=== PATIENT | female | born 1970 | race Caucasian/White ===

== ENCOUNTER → 2018-12-29 11:41 | Outpatient (CLI) | payer MEDICARE, SELFPAY ==
[2018-12-29 12:26] LABS: Hematocrit 39.1 % (37-47); Hemoglobin 13.4 g/dl (12.0-15.0); Mean Corp Hgb Conc 34.3 g/gl (32-36); Mean Corpuscular Hgb 31.5 pg (27.0-32.0); Platelet Count 177 K/mm3 (150-450); RBC Distribution Width CV 12.3 % (11.6-14.6); RBC Distribution Width SD 41.4 fl (35.1-43.9); Red Blood Count 4.25 M/mm3 (4.2-5.4)
[2018-12-29 12:27] LABS: Scan Indicated on CBC? Y/N NO
[2018-12-29 12:38] LABS: Carbamazepine (Tegretol) 5.9 ug/mL (4.0-12.0)
[2018-12-29 12:43] LABS: Hemoglobin A1c 5.2 % (4.2-6.3)
[2018-12-29 12:46] LABS: ALB/GLOB Ratio 0.9 RATIO (0.9-2.4); AST(SGOT) 18 U/L (15-37); Alanine Aminotransfer ALT/SGPT 21 U/L (13-56); Albumin, Serum 3.5 g/dL (3.2-5.0); Alkaline Phosphatase 54 U/L (45-117); Anion Gap 8 (5-15); BUN 8 mg/dL (7-18); BUN/Creat Ratio 12.5 RATIO (10-20); Calcium,Total 8.5 mg/dL (8.5-10.1); Chloride 96 mmol/L (98-107); Cholesterol 195 mg/dL (200); Creatinine, Serum 0.64 mg/dL (0.55-1.02); EST Glomerular Filtration Rate 106 mL/min (>60); Est Glom Filt Rate - Afr Amer 128 mL/min (>60); Globulin 3.7 g/dL (2.2-4.2); Glucose 80 mg/dL (74-106); High Density Lipoprotein 83 mg/dL; Potassium 4.4 mmol/L (3.5-5.1); Protein, Total 7.2 g/dL (6.4-8.2); Sodium Level 133 mmol/L (136-145); Thyroid Stim Hormone (TSH) 1.08 uIU/mL (0.358-3.74); Triglycerides 80 mg/dL; Very Low Density Lipoprotein 16 mg/dL (5-40)
== END ==
PROVIDERS: Family Provider Family Medicine; PCP Family Medicine; Referring Provider Student in an Organized Health Care Education/Training Program; Visit Provider Student in an Organized Health Care Education/Training Program
DX: Z51.81 Encounter for therapeutic drug level monitoring (principal); R73.01 Impaired fasting glucose; E78.5 Hyperlipidemia, unspecified
CPT/HCPCS: 80053; 80061; 80156; 83036; 84443; 85027

== ENCOUNTER 2019-10-11 14:20 | Inpatient (IN) | payer MEDICARE, SELFPAY ==
[2019-10-11] VITALS (15 sets, daily range): BP systolic 140–168; BP diastolic 83–110; PULSE 103–131; RESP 18–30; TEMP 36.5–37.1; O2SAT 89–100; BMI 27.9; BMI 28.0; BMI 27.8
--- NOTE | 2019-10-11 14:41 | RAD_ITS ---
STUDY: X-RAY CHEST REASON FOR EXAM: Female, 48 years old. SOB. CURRENTLY BEING TREATED FOR PNEUMONIA TECHNIQUE: Single AP portable view of the chest. COMPARISON: None. FINDINGS: The lungs are clear and expanded. There is no demonstrated pleural abnormality. Normal size heart. Normal mediastinum and julio c. Normal visualized pulmonary arteries. Normal visualized aortic arch and descending thoracic aorta. There are diffuse degenerative changes of the visualized thoracic spine. Normal visualized ribs, clavicles, and shoulders. There is no demonstrated abnormality of the visualized soft tissue structures of the upper abdomen. RAD/Chest 1 View (Portable) IMPRESSION: Degenerative changes, as described above. No demonstrated acute cardiopulmonary process. Electronically Signed: Jacquie Meraz MD at 15:04 EST Tel , Service support ,
--- NOTE | 2019-10-11 14:41 | EKG12_ITS ---
Test Reason : SOB Blood Pressure : / mmHG Vent. Rate : 116 BPM Atrial Rate : 116 BPM P-R Int : 146 ms QRS Dur : 072 ms QT Int : 314 ms P-R-T Axes : 059 034 017 degrees QTc Int : 436 ms Sinus tachycardia Nonspecific ST abnormality Abnormal ECG Confirmed by QUIQUE MOE, AJ ([id number]), photo editor DENISE ANDERSON ([id number]) on 10/14/2019 10:36:25 AM Referred By: Julian Fernández Confirmed By:DEJAN LEI MD
--- NOTE | 2019-10-11 14:44 | ED.VIS.GEN ---
History of Present Illness Chief Complaint: Shortness of Breath Informant: Patient Onset: Days Context: Gradual Onset Timing: Continuous Current Severity: Moderate Maximum Severity: Severe Narrative: The patient presents to the emergency department cough and shortness of breath. The patient states she is been treated for pneumonia recently. She states that she was on azithromycin twice. She states today, she went for follow-up. She was given an injection of steroid, but was very dyspneic. She was sent in for further evaluation. She did have fever today. She admits to productive cough and orthopnea. She denies any leg swelling. She denies any history of underlying lung disease. She states that she was borderline asthmatic when she was younger because her mother smoked in the house. She has not had chest pain. She has otherwise been in her normal state of health. Prior similar symptoms: Yes Recent Illness/Hospitalization: No Past Medical History - Allergies and Home Meds Allergies/Adverse Reactions: Allergies Penicillins [PCN] Allergy (Verified 10/11/19 14:24) Unknown Prior records reviewed: Yes Past Medical History: - - Schizoaffective disorder Smoking Status: Never smoker Review of Systems General: Reports: Fever. Denies: Chills, Sweats Eyes: Denies: Visual changes - bilaterally, Diplopia ENT: Denies: Rhinorrhea, Sore throat Cardiovascular: Denies: Chest pain, Palpitations Respiratory: Reports: Dyspnea, Cough, Sputum. Denies: Dyspnea on exertion Gastrointestinal: Denies: Abdominal pain, Nausea, Vomiting, Diarrhea, Melena, Hematochezia Genitourinary: Denies: Dysuria, Hematuria, Frequency Musculoskeletal: Denies: Back pain, Extremity Pain Skin: Denies: Rash, Wounds Neurological: Denies: Headache, Weakness, Numbness Physical Exam Vital Signs/Narrative: Vital Signs Temp Pulse Resp BP Pulse Ox 10/11/19 14:21 98.6 F 131 H 26 H 168/96 H 89 Inital Vital Signs reviewed: Yes General: Well nourished, Well developed, No Acute Distress Head: Normocephalic, Atraumatic Eyes: Perrl, EOMI ENT: Moist mucous membranes, No rhinorrhea Neck: Supple, Nontender Cardiovascular: Regular rhythm, No murmurs, Tachycardia Respiratory: No distress, Chest nontender, Wheezing, Decreased Air Movement Abdomen: Soft, Nontender, Nondistended, Normal bowel sounds Back: Nontender, Normal Inspection Extremities: Nontender, No edema Skin: Normal color, No rash Neurological: Alert, Oriented x3, Cranial nerves II-XII grossly intact, Normal Strength, Normal Sensation Psychological: Normal affect, Normal Mood Diagnostic/Tx/Re-eval Chest X-Ray - ED: 1 View, Normal, Heart, Lungs Clinical Impression(s) from Imaging Studies Chest X-Ray 10/11/19 14:41 IMPRESSION: Degenerative changes, as described above. No demonstrated acute cardiopulmonary process. Electronically Signed: Jacquie Meraz MD at 15:04 EST Tel , Service support , Chest CTA 10/11/19 14:57 IMPRESSION: No evidence of pulmonary embolism. Bilateral upper lobe groundglass opacity suspicious for atypical pneumonia. Not well seen on the chest x-ray. See image #93 coronal views. Electronically Signed: Jacquie Meraz MD at 16:20 EST Tel , Service support , Abnormal Lab Results 10/11/19 10/11/19 10/11/19 14:39 14:39 14:39 WBC 9.8 RBC 4.60 Hgb 14.6 Hct 42.1 MCV 91.5 MCH 31.7 MCHC 34.7 RDW Std Deviation 39.8 RDW Coeff of Shanika 11.9 Plt Count 246 MPV 8.5 Immature Gran % (Auto) 0.400 Neut % (Auto) 51.3 Lymph % (Auto) 19.7 [place] % (Auto) 9.8 Eos % (Auto) 18.3 H Baso % (Auto) 0.5 Absolute Neuts (auto) 5.0 Absolute Lymphs (auto) 1.92 Nucleated RBC % 0 PT 12.8 INR 1.0 APTT 28.6 Sodium 129 L Potassium 4.1 Chloride 96 L Carbon Dioxide 29.0 Anion Gap 4 L BUN 10 Creatinine 0.74 Estim Creat Clear Calc 84.57 Est GFR (MDRD) Af Amer 108 Est GFR (MDRD) Non-Af 89 BUN/Creatinine Ratio 13.5 Glucose 135 H Lactic Acid Calcium 9.2 Total Bilirubin 0.30 AST 22 ALT 20 Alkaline Phosphatase 71 Troponin I 0.450 H Total Protein 8.2 Albumin 3.8 Globulin 4.4 H Albumin/Globulin Ratio 0.9 Urine Color Urine Clarity Urine pH Ur Specific [place] Urine Protein Urine Glucose (UA) Urine Ketones Urine Occult Blood Urine Nitrite Urine Bilirubin Urine Urobilinogen Ur Leukocyte Esterase Urine RBC Urine WBC Ur Squamous Epith Cells Urine Bacteria Urine Mucus 10/11/19 10/11/19 14:39 15:39 WBC RBC Hgb Hct MCV MCH MCHC RDW Std Deviation RDW Coeff of Shanika Plt Count MPV Immature Gran % (Auto) Neut % (Auto) Lymph % (Auto) [place] % (Auto) Eos % (Auto) Baso % (Auto) Absolute Neuts (auto) Absolute Lymphs (auto) Nucleated RBC % PT INR APTT Sodium Potassium Chloride Carbon Dioxide Anion Gap BUN Creatinine Estim Creat Clear Calc Est GFR (MDRD) Af Amer Est GFR (MDRD) Non-Af BUN/Creatinine Ratio Glucose Lactic Acid 1.3 Calcium Total Bilirubin AST ALT Alkaline Phosphatase Troponin I Total Protein Albumin Globulin Albumin/Globulin Ratio Urine Color Yellow Urine Clarity Clear Urine pH 6.0 Ur Specific [place] 1.020 Urine Protein 30 H Urine Glucose (UA) Normal Urine Ketones 5 H Urine Occult Blood 50 H Urine Nitrite Negative Urine Bilirubin Negative Urine Urobilinogen Normal Ur Leukocyte Esterase Negative Urine RBC 0-5 SEEN Urine WBC 0 SEEN Ur Squamous Epith Cells 0-5 SEEN Urine Bacteria 0 SEEN Urine Mucus 0 SEEN - Rhythm Strip Rhythm Strip: Sinus Rhythm Rate: 120 Ectopy: None - EKG Initial EKG Interpretation: Sinus Rhythm, No Acute Injury Pattern Prior: Unchanged - Medical Decision Making Patient presents with cough, wheezing, and hypoxia. She was given nebulized breathing treatments. Her x-ray did not show any focal infiltrative process. EKG was sinus tachycardia without acute ischemia. Patient's lactic acid was normal. She was found to have an indeterminant troponin, which I likely feel is secondary to her global hypoxia. The patient underwent CTA which shows no evidence of thrombus. However, she does have multilobar lower pneumonia. The patient was covered with broad-spectrum antibiotics. Given her hypoxia and work of breathing, she will be admitted. Impression 1. Sepsis 2. Multilobar pneumonia 3. Hypoxia ED Disposition - Plan for ED Patient: Disposition: Acute Care Hospital [facility]
--- NOTE | 2019-10-11 14:45 | NURSING ---
NO OLD EKGS
[2019-10-11] MEDS: Ipratropium/Albuterol Sulfate 3 ML AMPUL.NEB INHALATION (14:49)
--- NOTE | 2019-10-11 14:57 | CT_ITS ---
STUDY: CTA CHEST REASON FOR EXAM: Female, 48 years old. SOB. RECENT PNEUMONIA RADIATION DOSAGE (If Supplied By Facility): CTDIvol = ( 11.18 ) mGy, DLP = ( 431.32 ) mGycm TECHNIQUE: The examination was performed with the intravenous administration of 75 ML ISOVUE 370. Post-processing of the angiographic images was performed, with multiplanar reformation and 3D reconstruction. Individualized dose optimization techniques were used for this CT. COMPARISON: October 11, 2019 CT scan chest FINDINGS: Normal enhancement of the main pulmonary artery and right and left pulmonary arteries. Normal enhancement of the bilateral peripheral pulmonary arteries. There is no demonstrated pulmonary embolism. Normal thoracic aorta and visualized great vessels. There is no demonstrated aortic dissection. Normal heart and pericardium. Normal mediastinum. Normal hilar regions. Normal visualized trachea and bronchi. The lungs are well expanded. There are groundglass opacities in the medial aspect of the right upper lobe extending to the right middle lobe. There is patchy groundglass opacity in the medial aspect of the left upper lobe. Normal pleura. Normal chest wall structures. There are degenerative changes of thoracic spine. Normal visualized upper abdomen. CT/CTA Chest W/WO Contrast IMPRESSION: No evidence of pulmonary embolism. Bilateral upper lobe groundglass opacity suspicious for atypical pneumonia. Not well seen on the chest x-ray. See image #93 coronal views. Electronically Signed: Jacquie Meraz MD at 16:20 EST Tel , Service support ,
[2019-10-11] MEDS: 0.9% Normal Saline 1,000 ML 150 ML IV ×2 (15:01→17:49)
[2019-10-11 15:04] LABS: Absolute Lymphocyte Count 1.92 X10^3/uL (0.83-4.51); Basophil# 0.05 X10^3/uL; Basophil% 0.5 % (0-1); Eosinophil# 1.79 X10^3/uL; Eosinophils% 18.3 % (0-5); Hematocrit 42.1 % (37-47); Hemoglobin 14.6 g/dL (12.0-15.0); Lymphocyte # 1.92 X10^3/ul (4.0); Lymphocyte % 19.7 % (19-41); Mean Corp Hgb Conc 34.7 g/dL (32-36); Mean Corpuscular Hgb 31.7 pg (27.0-32.0); Mean Corpuscular Volume 91.5 fL (81-99); Mean Platelet Vol. 8.5 fl (6.2-12.0); Monocyte# 0.96 X10^3/uL; Monocyte% 9.8 % (0-10); NRBC Flagged by Analyzer 0 % (0-5); Neutrophil # 5.01 X10^3/uL (2.7-7.7); Neutrophil % 51.3 % (47-70); Platelet Count 246 K/mm3 (150-450); RBC Distribution Width CV 11.9 % (11.6-14.6); RBC Distribution Width SD 39.8 fl (35.1-43.9); White Blood Count 9.8 K/mm3 (4.4-11.0)
[2019-10-11 15:08] LABS: Prothrombin Time (Protime)PT. 12.8 SECONDS (11.7-14.9)
[2019-10-11 15:10] LABS: Partial Thromboplast Time 28.6 Seconds (24.1-36.2)
[2019-10-11 15:22] LABS: ALB/GLOB Ratio 0.9 RATIO (0.9-2.4); AST(SGOT) 22 U/L (15-37); Alanine Aminotransfer ALT/SGPT 20 U/L (13-56); Albumin, Serum 3.8 g/dL (3.2-5.0); Alkaline Phosphatase 71 U/L (45-117); Anion Gap 4 (5-15); BUN 10 mg/dL (7-18); BUN/Creat Ratio 13.5 RATIO (10-20); Calcium,Total 9.2 mg/dL (8.5-10.1); Chloride 96 mmol/L (98-107); Creatinine, Serum 0.74 mg/dL (0.55-1.02); EST Glomerular Filtration Rate 89 mL/min (>60); Est Glom Filt Rate - Afr Amer 108 mL/min (>60); Estimated Creatinine Clearance 84.57 ml/min; Globulin 4.4 g/dL (2.2-4.2); Glucose 135 mg/dL (74-106); Potassium 4.1 mmol/L (3.5-5.1); Protein, Total 8.2 g/dL (6.4-8.2); Sodium Level 129 mmol/L (136-145)
[2019-10-11 15:44] LABS: Lactic Acid 1.3 mmol/L (0.4-1.9)
[2019-10-11 15:45] LABS: Bacteria 0 SEEN /hpf (None Seen); Mucous, Urine 0 SEEN /hpf (<or=2+); White Blood Cells 0 SEEN /hpf (0-5)
[2019-10-11 16:04] LABS: Color, Urine Yellow (Yellow); Glucose, Dipstick Normal (Normal); Ketone-Dipstick 5 mg/dl (Negative); Leukocyte Esterase-Dipstick Negative /ul (Negative); Nitrite-Dipstick Negative (Negative); Occult Blood-Urine 50 /ul (Negative); Protein-Dipstick 30 mg/dl (Negative); Urine Bilirubin Dipstick Negative (Negative); Urine Clarity Clear (Clear); Urine Urobilinogen Normal (Normal)
[2019-10-11 16:14] LABS: Red Blood Cells-Urine 0-5 SEEN /hpf (0-5); Squamous Epithelial Cells - UA 0-5 SEEN /hpf (5-10)
--- NOTE | 2019-10-11 16:36 | NURSING ---
109 SEPSIS, MULTILOBAR PNEUMONIA, HYPOXIA TERELETSKY
[2019-10-11] MEDS: HYDROcodone Bitartrate/Apap 5/325 Tablet PO (17:50)
[2019-10-11] MEDS: levoFLOXacin IV 750 MG/150 ML BAG 100 MG IV (17:50)
[2019-10-11] MEDS: 0.9% Saline Lock 10 ML Syringe IV (18:06)
--- NOTE | 2019-10-11 18:26 | HP.PCM_ITS ---
Problem List (1) Cough productive of yellow sputum Status: Acute (2) Wheezing Status: Acute History of Present Illness Date of Admission: 10/11/19 Chief Complaint: Cough with yellow sputum production, wheezing The patient is a 48 year old F was seen in the emergency room at [facility] with a chief complaint of cough productive of yellow sputum along with wheezing over the past 3 weeks. Patient has been on 2 Z-Rehan prescriptions back to back, today she went to an urgent care and was placed on Levaquin but she was not feeling better and felt that she should be evaluated in the emergency room here. Work-up in the emergency room here showed the patient to have normal white blood cell count, patient's chemistry panel showed a low sodium at 129, blood sugar was 135, and troponin was 0.450. Patient's urinalysis was unremarkable, chest x-ray was read out as negative, patient had a CTA of her chest which showed no evidence of pulmonary embolism but showed evidence of groundglass appearance in both upper lung cintron. Patient was admitted for bilateral community-acquired pneumonia and sepsis. She was given IV Levaquin in the emergency room, IV corticosteroids will be administered also. Past Medical History Allergies Penicillins [PCN] Allergy (Verified 10/11/19 14:24) Unknown trifluoperazine [From Stelazine] Allergy (Verified 10/11/19 17:15) Unknown Home Medications: Ambulatory Orders Medication Instructions Recorded Albuterol IH (ProAir) [Proair Hfa] 2 puff INHALATION Q6H PRN PRN 10/11/19 Benztropine Mesylate 0.5 mg PO BID 10/11/19 Benztropine Mesylate 1 mg PO QHS 10/11/19 Carbamazepine [Tegretol] 200 mg PO BID 10/11/19 Cholecalciferol (Vitamin D3) 5,000 unit PO DAILY 10/11/19 [Vitamin D3] Divalproex Sodium [Depakote] 500 mg PO TID 10/11/19 Haloperidol 5 mg PO TID 10/11/19 Meloxicam 15 mg PO DAILY@1600 10/11/19 [place]-3 Fatty Acids/Fish Oil [Fish 2,000 mg PO DAILY 10/11/19 Oil 1,000 mg Capsule] Omeprazole 20 mg PO DAILY 10/11/19 Prednisone 10 mg PO 4X/DAY 10/11/19 Sertraline HCl [Zoloft] 100 mg PO BID 10/11/19 Triamcinolone 0.1% Cream [Kenalog] 1 applicatio TOPICAL BID 10/11/19 levoFLOXacin tablet [Levaquin 750 mg PO DAILY 10/11/19 tablet] Surgical History: noncontributory Psychiatric History: - - Schizo affective disorder 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 Lives: With Family Smoking Status: Never smoker Tobacco Use: Non-smoker, Secondhand Alcohol: None Drugs: None - *Family History Maternal History Items: Heart Disease Paternal History Items: Heart Disease Review of Systems Constitutional: Denies: Anorexia, Chills, Fever, Night Sweats, Malaise, Weakness, Weight Change, Fatigue Eyes: Denies: Cataracts, Conjunctivae Inflammation, Double vision, Drainage, Redness, Vision Change HEENT: Denies: Difficulty Swallowing, Dysphasia, Ear Pain, Eye Pain, Hearing Changes, Nasal bleeding, Nasal Congestion, Post Nasal Drip Cardiovascular: Denies: Chest Pain, Claudication, Chest Pressure, Chest Tightness, Edema, Palpitations Respiratory: Reports: Cough, Sputum production, Wheezing. Denies: Hemoptysis, S hortness of Breath, Shortness of breath at rest, Shortness of breath upon exertion Gastrointestinal: Denies: Abdominal Pain, Constipation, Diarrhea, Hematemesis, Hematochezia, Nausea, Melena, Vomiting Genitourinary: Denies: Dysuria, Frequency, Hematuria, Hesitancy, Nocturia, Retention, Urgency Gynecological: Denies: Breast symptoms Musculoskeletal: Denies: Back Pain, Foot Pain, Hand Pain, Joint Pain, Joint stiffness, Joint swelling, Joint Tenderness, Leg Pain Skin: Denies: Dryness, Jaundice, Pruritis, Rash Neurological: Denies: Blurred vision, Double vision, Slurred speech, Difficulty swallowing, Focal weakness, Headaches, Numbness, Tingling Psychiatric: Denies: Anxiety, Depression, Homicidal Ideations, Suicidal Ideations Endocrine: Denies: Change in Body Habitus, Heat/ Cold Intolerance, Polydipsia, Polyuria Hematologic/ Lymphatic: Denies: Adenopathy, Anemia, Easy Bruising, Easy Bleeding, Petechiae, Purpura VTE Information - Inpt Only VTE Present on Admission: No VTE Mechan Device Prophylaxis: None VTE Pharm Prophylaxis ordered?: No Reason prophylaxis not ordered:: Treatment Not Indicated Patient Problems: Active and Suspected Problems Cough productive of yellow sputum (Acute) Wheezing (Acute) - Physical Exam Vitals/I&O's: Vital Signs Temp Pulse Resp BP Pulse Ox 97.7 F L 122 H 30 H 160/90 H 98 10/11/19 18:23 10/11/19 18:23 10/11/19 18:23 10/11/19 18:23 10/11/19 18:23 Oxygen Flow Rate (L/min) 5 Oxygen Delivery Method Nasal Cannula Weight: 76.9 kg Body Mass Index (BMI) 27.8 Intake and Output for Last 24 Hours 10/09/19 10/10/19 10/11/19 23:59 23:59 23:59 Intake Total 782.5 / 782.5 Balance 782.5 / 782.5 General: Alert, Oriented x3, Cooperative, No apparent distress, Well developed, Well nourished HEENT: Atraumatic, PERRLA, EOMI, Normocephalic Oral: Moist Mucosa Neck: Supple, No JVD, Negative Carotid Bruits, Trachea Midline, Thyroid Normal Size and Texture Lungs: No rhonchi, No rales, Diminished, Wheezes - High-pitched expiratory wheezes were noted over both lungs Cardiovascular: Regular rate, Regular Rhythm, Normal S1, Normal S2, No murmurs, PMI Normal, No rub noted, No Gallop Abdomen: Bowel Sounds Present, Soft, Non Tender, Non-Distended Extremities: No clubbing, No cyanosis, No edema, Capillary Refill Less than 3 Seconds Skin: No rashes, No breakdown Musculoskeletal: No Tenderness to Palpation of Joints or Extremities Neurological: Cranial nerves II-XII grossly intact, Neuro grossly intact, Muscle tone normal, Sensory exam intact to light touch and pain, Coordination normal Psych/Mental Status: Normal Affect, Appropriate, Alert and oriented to time, place, person, mood and affect Microbiology Past 72 Hours 10/11/19 14:48 Mucosa - Nasopharyngeal Influenza Types A,B Direct FA (ANTONY) - Final Laboratory Results 10/11/19 14:39: WBC 9.8, RBC 4.60, Hgb 14.6, Hct 42.1, MCV 91.5, MCH 31.7, MCHC 34.7, RDW Std Deviation 39.8, RDW Coeff of Shanika 11.9, Plt Count 246, MPV 8.5, Immature Gran % (Auto) 0.400, Neut % (Auto) 51.3, Lymph % (Auto) 19.7, [place] % (Auto) 9.8, Eos % (Auto) 18.3 H, Baso % (Auto) 0.5, Absolute Neuts (auto) 5.0, Absolute Lymphs (auto) 1.92, Nucleated RBC % 0 10/11/19 14:39: PT 12.8, INR 1.0, APTT 28.6 10/11/19 14:39: Sodium 129 L, Potassium 4.1, Chloride 96 L, Carbon Dioxide 29.0, Anion Gap 4 L, BUN 10, Creatinine 0.74, Estim Creat Clear Calc 84.57, Est GFR (MDRD) Af Amer 108, Est GFR (MDRD) Non-Af 89, BUN/Creatinine Ratio 13.5, Glucose 135 H, Calcium 9.2, Total Bilirubin 0.30, AST 22, ALT 20, Alkaline Phosphatase 71, Troponin I 0.450 H, Total Protein 8.2, Albumin 3.8, Globulin 4.4 H, Albumin/Globulin Ratio 0.9 10/11/19 14:39: Lactic Acid 1.3 10/11/19 15:39: Urine Color Yellow, Urine Clarity Clear, Urine pH 6.0, Ur Specific [place] 1.020, Urine Protein 30 H, Urine Glucose (UA) Normal, Urine Ketones 5 H, Urine Occult Blood 50 H, Urine Nitrite Negative, Urine Bilirubin Negative, Urine Urobilinogen Normal, Ur Leukocyte Esterase Negative, Urine RBC 0-5 SEEN, Urine WBC 0 SEEN, Ur Squamous Epith Cells 0-5 SEEN, Urine Bacteria 0 SEEN, Urine Mucus 0 SEEN Current Medications Acetaminophen (Tylenol) 650 mg PO Q6H PRN PRN PRN Reason: Pain Score 1-3/Temp > 100.7 F Hydrocodone Bitart/Acetaminophen ([place] 5mg-325mg) 2 tablet PO Q6H PRN PRN PRN Reason: Pain Score 4-5/10 Last Admin: 10/11/19 17:50 Dose: 2 tablet Documented by: Albuterol Sulfate (Ventolin Aerosols) 2.5 mg INHALATION Q6HWA.RT ROMAN Carbamazepine (Tegretol) 200 mg PO BID ROMAN Haloperidol (Haldol) 5 mg PO TID ROMAN Sodium Chloride () 1,000 mls @ 150 mls/hr IV .Q6H40M ROMAN Last Infusion: 10/11/19 17:50 Dose: 0 mls/hr Documented by: Levofloxacin (Levaquin Tablet) 750 mg PO DAILY ROMAN Meloxicam (Mobic) 15 mg PO DAILY@1600 ROMAN Methylprednisolone (Solu-Medrol) 40 mg IV Q8 ROMAN Last Admin: 10/11/19 18:06 Dose: 40 mg Documented by: Non-Formulary Medication (Benztropine Mesylate) 0.5 mg PO BID ROMAN Non-Formulary Medication (Benztropine Mesylate) 1 mg PO QHS [facility] Non-Formulary Medication (Divalproex Sodium [Depakote]) 500 mg PO TID ROMAN Ondansetron HCl (Zofran) 4 mg IV Q8H PRN PRN PRN Reason: NAUSEA/VOMITING Sertraline HCl (Zoloft) 100 mg PO DAILY [facility] Sodium Chloride () 10 - 40 ml IV UD PRN PRN Reason: SALINE FLUSH Last Admin: 10/11/19 18:06 Dose: 10 ml Documented by: Assessment/Plan All Active Problems Cough productive of yellow sputum (Acute) Wheezing (Acute) #1 bilateral community-acquired pneumonia-patient was admitted to PCU, patient will remain on IV Levaquin, she will receive aerosol treatments, IV corticosteroids-it is possible that this bilateral pneumonia could be viral in nature. Respiratory panel will be ordered. #2 sepsis secondary to #1 #3 elevated troponin-probably secondary to hypoxia #4 hypoxia-patient's pulse ox was 89% on room air #5 schizoaffective disorder Code Visit Inpatient E&M: 45376 Init Hosp L3
[2019-10-11] MEDS: Albuterol 2.5 MG/3 ML VIAL.NEB. INHALATION (19:26)
[2019-10-11] MEDS: Benztropine 2 MG Tablet 1 MG PO (22:49)
[2019-10-11] MEDS: Divalproex Sodium 250 MG Tablet 500 MG PO (22:49)
[2019-10-11] MEDS: carBAMazepine 200 MG Tablet PO (22:49)
[2019-10-11] MEDS: Haloperidol 5 MG Tablet PO (22:49)
[2019-10-12] VITALS (15 sets, daily range): BP systolic 126–136; BP diastolic 68–88; PULSE 95–116; RESP 14–20; TEMP 36.6–37; O2SAT 93–100
[2019-10-12] MEDS: Albuterol 2.5 MG/3 ML VIAL.NEB. INHALATION ×4 (00:54→19:25)
[2019-10-12] MEDS: guaiFENesin 10 ML UDC (200MG/10ML) PO ×4 (01:07→23:35)
[2019-10-12] MEDS: 0.9% Normal Saline 1,000 ML 150 ML IV ×2 (01:07→07:41)
[2019-10-12] MEDS: Acetaminophen 325 MG Tablet 650 MG PO ×2 (01:26→07:46)
[2019-10-12] MEDS: Haloperidol 5 MG Tablet PO ×3 (05:16→21:03)
[2019-10-12] MEDS: 0.9% Saline Lock 10 ML Syringe IV (05:16)
[2019-10-12] MEDS: Divalproex Sodium 250 MG Tablet 500 MG PO ×3 (05:17→21:02)
[2019-10-12 06:41] LABS: Absolute Lymphocyte Count 1.19 X10^3/uL (0.83-4.51); Absolute Neutrophil Count 6.3 X10^3/uL (2.0-7.7); Basophil# 0.03 X10^3/uL; Basophil% 0.4 % (0-1); Eosinophil# 0.07 X10^3/uL; Eosinophils% 0.8 % (0-5); Hematocrit 39.1 % (37-47); Hemoglobin 13.2 g/dL (12.0-15.0); Lymphocyte # 1.19 X10^3/ul (4.0); Lymphocyte % 14.4 % (19-41); Mean Corp Hgb Conc 33.8 g/dL (32-36); Mean Corpuscular Hgb 31.3 pg (27.0-32.0); Mean Corpuscular Volume 92.7 fL (81-99); Monocyte# 0.68 X10^3/uL; Monocyte% 8.2 % (0-10); NRBC Flagged by Analyzer 0 % (0-5); Neutrophil # 6.27 X10^3/uL (2.7-7.7); Neutrophil % 75.6 % (47-70); Platelet Count 242 K/mm3 (150-450); RBC Distribution Width CV 11.9 % (11.6-14.6); RBC Distribution Width SD 40.5 fl (35.1-43.9); Red Blood Count 4.22 M/mm3 (4.2-5.4); White Blood Count 8.3 K/mm3 (4.4-11.0)
[2019-10-12] MEDS: Benztropine 2 MG Tablet 0.5 MG PO ×2 (07:42→16:29)
--- NOTE | 2019-10-12 09:32 | RAD_ITS ---
STUDY: X-RAY CHEST REASON FOR EXAM: Female, 48 years old. follow up pneumonia TECHNIQUE: Single AP portable view of the chest. COMPARISON: 11 October 2019 FINDINGS: The lungs are clear and expanded. There is no demonstrated pleural abnormality. Normal size heart. Normal mediastinum and julio c. Normal visualized pulmonary arteries. Normal visualized aortic arch and descending thoracic aorta. Normal visualized thoracic spine. Normal visualized ribs, clavicles, and shoulders. There is no demonstrated abnormality of the visualized soft tissue structures of the upper abdomen. RAD/Chest 1 View (Portable) IMPRESSION: No evidence of focal airspace disease. Electronically Signed: Anand Fabian DO at 10:55 EST , Service support ,
[2019-10-12] MEDS: levoFLOXacin 750 MG Tablet PO (09:53)
[2019-10-12] MEDS: Sertraline 100 MG Tablet PO (09:53)
[2019-10-12] MEDS: carBAMazepine 200 MG Tablet PO ×2 (09:53→21:04)
[2019-10-12] MEDS: Triamcinolone 0.5% Cream 1 APPLIC TOPICAL ×2 (09:53→21:01)
[2019-10-12] MEDS: BENZOCAINE/MENTHOL 1 LOZENGE MUCOUS MEM ×2 (11:04→19:26)
--- NOTE | 2019-10-12 15:02 | PCM.PROGNOTE ---
Patient Problems: Active and Suspected Problems Cough productive of yellow sputum (Acute) Wheezing (Acute) Subjective: Patient was seen and examined this morning, she states her breathing is improved, the patient's respiratory panel was negative for pathogens, patient's white blood cell count remains normal, patient remains afebrile. - Physical Exam Vitals/I&O's: Vital Signs Temp Pulse Resp BP Pulse Ox 98.0 F 112 H 16 126/76 H 100 10/12/19 13:59 10/12/19 13:59 10/12/19 13:59 10/12/19 13:59 10/12/19 13:59 Oxygen Flow Rate (L/min) 2 Oxygen Delivery Method Nasal Cannula Weight: 76.9 kg Body Mass Index (BMI) 27.8 Intake and Output for Last 24 Hours 10/10/19 10/11/19 10/12/19 23:59 23:59 23:59 Intake Total 1532.5 / 1772.5 2305.0 / 2305.0 Output Total 2400 / 2400 Balance 1532.5 / 1472.5 -95.0 / -95.0 General: Alert, Oriented x3, Cooperative, No apparent distress, Well developed, Well nourished HEENT: Atraumatic, PERRLA, EOMI, Normocephalic Oral: Moist Mucosa Neck: Supple, Trachea Midline, Thyroid Normal Size and Texture Lungs: Clear to auscultation, Normal air movement, No rhonchi, No rales, Wheezes - Scattered expiratory wheezes are noted bilaterally Cardiovascular: Regular rate, Regular Rhythm, Normal S1, Normal S2, No murmurs Abdomen: Bowel Sounds Present, Soft, Non Tender, Non-Distended Extremities: No clubbing, No cyanosis, No edema, Capillary Refill Less than 3 Seconds Skin: No rashes, No breakdown Musculoskeletal: No Tenderness to Palpation of Joints or Extremities Neurological: Cranial nerves II-XII grossly intact, Neuro grossly intact, Sensory exam intact to light touch and pain Psych/Mental Status: Normal Affect, Appropriate, Alert and oriented to time, place, person, mood and affect Microbiology Past 72 Hours 10/11/19 19:30 Mucosa - Nasopharyngeal Respiratory Panel (PCR) - Final 10/11/19 14:48 Mucosa - Nasopharyngeal Influenza Types A,B Direct FA (ANTONY) - Final Laboratory Results 10/11/19 14:39: WBC 9.8, RBC 4.60, Hgb 14.6, Hct 42.1, MCV 91.5, MCH 31.7, MCHC 34.7, RDW Std Deviation 39.8, RDW Coeff of Shanika 11.9, Plt Count 246, MPV 8.5, Immature Gran % (Auto) 0.400, Neut % (Auto) 51.3, Lymph % (Auto) 19.7, [place] % (Auto) 9.8, Eos % (Auto) 18.3 H, Baso % (Auto) 0.5, Absolute Neuts (auto) 5.0, Absolute Lymphs (auto) 1.92, Nucleated RBC % 0 10/11/19 14:39: PT 12.8, INR 1.0, APTT 28.6 10/11/19 14:39: Sodium 129 L, Potassium 4.1, Chloride 96 L, Carbon Dioxide 29.0, Anion Gap 4 L, BUN 10, Creatinine 0.74, Estim Creat Clear Calc 84.57, Est GFR (MDRD) Af Amer 108, Est GFR (MDRD) Non-Af 89, BUN/Creatinine Ratio 13.5, Glucose 135 H, Calcium 9.2, Total Bilirubin 0.30, AST 22, ALT 20, Alkaline Phosphatase 71, Troponin I 0.450 H, Total Protein 8.2, Albumin 3.8, Globulin 4.4 H, Albumin/Globulin Ratio 0.9 10/11/19 14:39: Lactic Acid 1.3 10/11/19 15:39: Urine Color Yellow, Urine Clarity Clear, Urine pH 6.0, Ur Specific [place] 1.020, Urine Protein 30 H, Urine Glucose (UA) Normal, Urine Ketones 5 H, Urine Occult Blood 50 H, Urine Nitrite Negative, Urine Bilirubin Negative, Urine Urobilinogen Normal, Ur Leukocyte Esterase Negative, Urine RBC 0-5 SEEN, Urine WBC 0 SEEN, Ur Squamous Epith Cells 0-5 SEEN, Urine Bacteria 0 SEEN, Urine Mucus 0 SEEN 10/11/19 18:29: Troponin I 0.772 H* 10/11/19 21:43: Troponin I 0.733 H* 10/12/19 00:38: Troponin I 0.529 H 10/12/19 05:40: WBC 8.3, RBC 4.22, Hgb 13.2, Hct 39.1, MCV 92.7, MCH 31.3, MCHC 33.8, RDW Std Deviation 40.5, RDW Coeff of Shanika 11.9, Plt Count 242, MPV 9.0, Immature Gran % (Auto) 0.600, Neut % (Auto) 75.6 H, Lymph % (Auto) 14.4 L, [place] % (Auto) 8.2, Eos % (Auto) 0.8, Baso % (Auto) 0.4, Absolute Neuts (auto) 6.3, Absolute Lymphs (auto) 1.19, Nucleated RBC % 0 Current Medications Acetaminophen (Tylenol) 650 mg PO Q6H PRN PRN PRN Reason: Pain Score 1-3/Temp > 100.7 F Last Admin: 10/12/19 07:46 Dose: 650 mg Documented by: Hydrocodone Bitart/Acetaminophen ([place] 5mg-325mg) 2 tablet PO Q6H PRN PRN PRN Reason: Pain Score 4-5/10 Last Admin: 10/11/19 17:50 Dose: 2 tablet Documented by: Albuterol Sulfate (Ventolin Aerosols) 2.5 mg INHALATION Q6HWA.RT [facility] Last Admin: 10/12/19 13:26 Dose: 2.5 mg Documented by: Albuterol Sulfate (Ventolin Aerosols) 2.5 mg INHALATION Q2H PRN PRN PRN Reason: DYSPNEA Benztropine Mesylate (Cogentin) 0.5 mg PO BID@0800,1600 [facility] Last Admin: 10/12/19 07:42 Dose: 0.5 mg Documented by: Benztropine Mesylate (Cogentin) 1 mg PO HS [facility] Last Admin: 10/11/19 22:49 Dose: 1 mg Documented by: Carbamazepine (Tegretol) 200 mg PO BID [facility] Last Admin: 10/12/19 09:53 Dose: 200 mg Documented by: Divalproex Sodium (Depakote) 500 mg PO TID [facility] Last Admin: 10/12/19 14:00 Dose: 500 mg Documented by: Guaifenesin (Robitussin) 10 ml PO Q6H PRN PRN PRN Reason: COUGH/CONGESTION Last Admin: 10/12/19 14:01 Dose: 10 ml Documented by: Haloperidol (Haldol) 5 mg PO TID [facility] Last Admin: 10/12/19 14:00 Dose: 5 mg Documented by: Levofloxacin (Levaquin Tablet) 750 mg PO DAILY [facility] Last Admin: 10/12/19 09:53 Dose: 750 mg Documented by: Meloxicam (Mobic) 15 mg PO DAILY@1600 ROMAN Methylprednisolone (Solu-Medrol) 40 mg IV Q8 [facility] Last Admin: 10/12/19 14:00 Dose: 40 mg Documented by: Ondansetron HCl (Zofran) 4 mg IV Q8H PRN PRN PRN Reason: NAUSEA/VOMITING Sertraline HCl (Zoloft) 100 mg PO DAILY [facility] Last Admin: 10/12/19 09:53 Dose: 100 mg Documented by: Sodium Chloride () 10 - 40 ml IV UD PRN PRN Reason: SALINE FLUSH Last Admin: 10/12/19 05:16 Dose: 10 ml Documented by: Throat Lozenges (Cepacol Sore Throat Lozenge) 1 lozenge MUCOUS MEM Q2H PRN PRN PRN Reason: COUGH Last Admin: 10/12/19 11:04 Dose: 1 lozenge Documented by: Triamcinolone Acetonide (Triamcinolone Acetonide) 1 applic TOPICAL BID [facility] Last Admin: 10/12/19 09:53 Dose: 1 applicatio Documented by: Medical Necessity - Tobacco Use Smoking Status: Never smoker Tobacco Use: Non-smoker, Secondhand Assessment/Plan All Active Problems Cough productive of yellow sputum (Acute) Wheezing (Acute) #1 bilateral community-acquired pneumonia-etiology unclear, patient will continue oral Levaquin, aerosol treatments, and IV Solu-Medrol #2 sepsis secondary to #1 #3 elevated troponin-probably secondary to hypoxia #4 hypoxia-oxygen will be weaned if possible #5 schizoaffective disorder Code Visit Inpatient E&M: 03164 Subs Hosp L2
[2019-10-12] MEDS: Meloxicam 15 MG Tablet PO (16:29)
[2019-10-12] MEDS: Benztropine 2 MG Tablet 1 MG PO (21:03)
[2019-10-13] VITALS (7 sets, daily range): BP systolic 117–140; BP diastolic 79–85; PULSE 80–107; RESP 16–18; TEMP 36.7–36.9; O2SAT 93–98
[2019-10-13] MEDS: BENZOCAINE/MENTHOL 1 LOZENGE MUCOUS MEM ×3 (00:05→10:24)
[2019-10-13] MEDS: Haloperidol 5 MG Tablet PO ×2 (05:00→14:31)
[2019-10-13] MEDS: Divalproex Sodium 250 MG Tablet 500 MG PO ×2 (05:00→14:31)
[2019-10-13] MEDS: 0.9% Saline Lock 10 ML Syringe IV (05:00)
[2019-10-13] MEDS: guaiFENesin 10 ML UDC (200MG/10ML) PO (05:41)
[2019-10-13] MEDS: Albuterol 2.5 MG/3 ML VIAL.NEB. INHALATION ×2 (07:08→13:15)
[2019-10-13] MEDS: Benztropine 2 MG Tablet 0.5 MG PO (07:43)
--- NOTE | 2019-10-13 08:12 | ECHOCS_ITS ---
Version 2 Reason For Study: Dyspnea/SOB Procedure This was a 2D Doppler, Color Flow transthoracic echocardiogram. The study was technically difficult. Contrast injection was performed. Exam performed portable in patient room. Left Ventricle Normal LV size. The estimated ejection fraction is 70 %. No evidence for diastolic dysfunction. No regional wall motion abnormalities noted. Right Ventricle Normal RV size. Normal systolic function. Atria Normal left atrium. Normal right atrium. No doppler evidence for ASD. Mitral Valve There is no mitral valve stenosis. There is no mitral regurgitation noted. Tricuspid Valve There is no tricuspid stenosis. Unable to estimate RV systolic pressure due to insufficient tricuspid regurgitant envelope. No tricuspid valve insufficiency. Aortic Valve Trisinus/trileaflet aortic valve. There is no aortic stenosis. No aortic valve insufficiency. Pulmonic Valve There is no pulmonic valvular stenosis. No pulmonic valve insufficiency. Great Vessels Normal aortic root. Pericardium/Pleural No pericardial effusion. Medication Diluted definity 2ml given slow IV push to enhance endocardial definition. MMode/2D Measurements & Calculations LVIDd: 3.8 cm IVSd: 1.2 cm LA dimension: 3.2 cm LVIDs: 2.6 cm LVPWd: 1.4 cm RVDd: 2.7 cm FS: 31.6 % LAV(MOD-sp4): 26.8 ml LA A4 area: 12.4 cm2 RA A4 area: 13.2 cm2 Time Measurements MV dec time: 0.16 sec Doppler Measurements & Calculations MV E max james: 80.4 cm/sec Lat Peak E' James: 15.2 cm/sec Med Peak E' James: 13.8 cm/sec MV A max james: 84.7 cm/sec E/E' lat: 5.3 E/E' med: 5.8 MV E/A: 0.95 MV V2 max: 84.6 cm/sec MV P1/2t max james: 86.1 cm/sec Ao V2 max: 157.3 cm/sec MV max P.9 mmHg MV P1/2t: 53.4 msec Ao max P.9 mmHg MV V2 mean: 55.3 cm/sec MV dec slope: 472.5 cm/sec2 Ao V2 mean: 107.2 cm/sec MV mean P.4 mmHg Ao mean P.1 mmHg MV V2 VTI: 14.8 cm MVA(P1/2t): 4.1 cm2 Ao V2 VTI: 27.6 cm LV V1 max: 132.2 cm/sec PA V2 max: 96.3 cm/sec LV V1 max P.0 mmHg LV V1 mean P.4 mmHg LV V1 mean: 85.1 cm/sec LV V1 VTI: 22.8 cm Interpretation Summary The estimated ejection fraction is 70 %. No evidence for diastolic dysfunction. Diluted definity 2ml given slow IV push to enhance endocardial definition. The study was technically difficult. Ordering Physician: Julian Fernández Referring Physician: Julian Fernández Performed By: Glenn Alvarez RCS
[2019-10-13] MEDS: carBAMazepine 200 MG Tablet PO (09:39)
[2019-10-13] MEDS: levoFLOXacin 750 MG Tablet PO (09:39)
[2019-10-13] MEDS: Sertraline 100 MG Tablet PO (09:39)
[2019-10-13] MEDS: Triamcinolone 0.5% Cream 1 APPLIC TOPICAL (09:40)
--- NOTE | 2019-10-13 10:18 | CASEMGMT ---
Pt indicated to admitting RN she has LW/POA forms, unable to bring them in at this time. She stated Jerel Chaves is her POA. HOPE Leon
--- NOTE | 2019-10-13 10:53 | CASEMGMT ---
This RN CM to room to complete CM assessment and pt is on the phone at this time. This RN CM to attempt later. SStaten RN CM
--- NOTE | 2019-10-13 11:19 | PCM.DC ---
- Discharge Diagnoses Current Active Problems: Current Active and Chronic Problems Cough productive of yellow sputum (Acute) Wheezing (Acute) You will use the following diet at home:: No restrictions Your food should be the consistency of: Regular Your liquids should be the consistency of: Regular/Thin Discharge Activity: Return to Normal Activity Weight Bearing Status: Full weight bearing Allergies/Adverse Reactions: Allergies Penicillins [PCN] Allergy (Verified 10/11/19 14:24) Unknown trifluoperazine [From Stelazine] Allergy (Verified 10/11/19 17:15) Unknown Medications to take at Discharge Albuterol IH (ProAir) [Proair Hfa] 2 puff INHALATION Q6H PRN PRN 10/11/19 Benztropine Mesylate 0.5 mg PO BID 10/11/19 Benztropine Mesylate 1 mg PO QHS 10/11/19 Carbamazepine [Tegretol] 200 mg PO BID 10/11/19 Cholecalciferol (Vitamin D3) [Vitamin D3] 5,000 unit PO DAILY 10/11/19 Divalproex Sodium [Depakote] 500 mg PO TID 10/11/19 Haloperidol 5 mg PO TID 10/11/19 Meloxicam 15 mg PO DAILY@1600 10/11/19 [place]-3 Fatty Acids/Fish Oil [Fish Oil 1,000 mg Capsule] 2,000 mg PO DAILY 10/11/19 Omeprazole 20 mg PO DAILY 10/11/19 Sertraline HCl [Zoloft] 100 mg PO BID 10/11/19 Triamcinolone 0.1% Cream [Kenalog] 1 applicatio TOPICAL BID 10/11/19 Prednisone [Deltasone] 20 mg PO UD #10 tab 10/13/19 levoFLOXacin tablet [Levaquin tablet] 750 mg PO DAILY #4 tab 10/13/19 The following prescriptions were given: Prednisone [Deltasone] 20 mg PO UD #10 tab Transmission Status: Pending to [facility] levoFLOXacin tablet [Levaquin tablet] 750 mg PO DAILY #4 tab [facility] Primary Care Physician: Gerald Edwards DO [Primary Care Provider] - Please follow up with your Primary Care Physician in: in 2 weeks Test Results: Test results from this visit will be discussed in further detail at your follow-up appointment, if applicable.
--- NOTE | 2019-10-13 11:40 | CASEMGMT ---
YUNIER BERMAN assessment: Face to Face with patient for initial transition planning/care coordination assessment. YUNIER BERMAN introduced self and role at [facility], pt voices understanding and consents to assessment at this time. Pt is sitting up in bed in no distress at this time. Pt is A/Ox4 at this time and answers all questions appropriately at this time. Care providers, pharmacy, and demographics verified/updated at this time. Presentation: Worsening SOB, currently being treated for pna-xray, steroids, breathing treatment already done today. Admitting dx: Bilat pna, elevated troponin PCP: Jerry Specialists: Parth at [facility] Preferred Pharmacy: [facility] Insurance: [employer] Prescription Benefit: [employer] Living Will/HPOA: Pt states has LW/HPOA and is aware that they are not on file at [facility] at this time. Pt encouraged to bring in when able, voices understanding. Pt states that her father is her HPOA but also states that he is currently in a SNF. LNOK: Aviva Mello, sister; Thiago Levi, uncle Living Arrangements: Pt states lives with her sister in a split level home and states no concerns at home at this time. Pt states is independent with ADL's. Transportation: Pt states drives self and states no transportation concerns at this time. DME/HHC: Pt states no current DME or need for any at this time. Pt states no hx of HHC or SNF in the past. Pt states no concerns with going home at time of discharge. Pt states is disabled. Pt states does not smoke or drink ETOH. Pt states no further concerns/needs at this time. CM to follow for any further discharge planning/needs. Advised pt to ask for CM if any further questions/concerns/needs arise, voices understanding. Pt Goal: Home Plan: Home [place]en YUNIER BERMAN
--- NOTE | 2019-10-13 14:59 | NURSING ---
Reviewed and agreed on all charting with Yuri Diego RN
--- NOTE | 2019-10-13 18:33 | DS.PCM_ITS ---
Discharge Date and Diagnosis Date of Admission: 10/11/19 Date of Discharge: 10/13/19 - Primary Discharge Diagnosis #1 sepsis secondary to #2 #2 bilateral community-acquired pneumonia-etiology unclear #3 elevated troponin- secondary to hypoxia #4 hypoxia secondary to bilateral community-acquired pneumonia #5 schizoaffective disorder Hospital Course and Treatment Operations: None Procedures: 2-D Echocardiogram Summary of Care Provided: The patient is a 48 year old F who was seen in the emergency room at [facility] with a chief complaint of cough and yellow sputum production along with wheezing. Patient had been through 2 doses of antibiotics as an outpatient for the symptoms but had not improved. Work-up in the emergency room showed the patient have normal white blood cell count, patient's chemistry panel showed a slightly low sodium at 129, troponin was 0.450, EKG showed normal sinus rhythm without ischemic changes. Patient's chest x-ray was read as negative, patient had a CTA of her chest which showed no evidence of pulmonary embolism but showed evidence of groundglass appearance in both upper lung cintron. Patient was admitted to PCU, placed on oral Levaquin after being given IV Levaquin in the emergency room, she was placed on IV Solu-Medrol and her oxygen was weaned. Patient continued to have persistent coughing and her troponins were cycled and they remained elevated but finally declined. It was not felt that the patient had any cardiac pathology, echocardiogram was obtained which showed a normal ejection fraction. Patient's respiratory panel was negative for tested pathogens. On 10/13/2019, patient was seen and examined and felt to be in stable condition for discharge home: On examination she appeared in good health and spirits. Vi donnie signs as documented. Skin warm and dry and without overt rashes. Neck without JVD. Lungs-occasional expiratory wheezes were noted. Heart exam notable for regular rhythm, normal sounds and absence of murmurs, rubs or gallops. Abdomen unremarkable and without evidence of organomegaly, masses, or abdominal aortic enlargement. Extremities nonedematous. Neuro: Cranial nerves II through XII are grossly intact, no focal motor deficits were noted, sensation to light touch and pinprick is intact. Psych: Patient is alert and oriented x3, she does not appear anxious or depressed. - Physical Exam Vitals/I&O's: Vital Signs Temp Pulse Resp BP Pulse Ox 98.4 F 107 H 16 117/80 93 10/13/19 13:03 10/13/19 13:15 10/13/19 13:15 10/13/19 13:03 10/13/19 13:03 Oxygen Flow Rate (L/min) [ 0 AMBULATING on Room Air] Oxygen Flow Rate (L/min) [At 0 REST on Room Air] Oxygen Flow Rate (L/min) 2 Oxygen Delivery Method Room Air Weight: 76.9 kg Body Mass Index (BMI) 27.8 Intake and Output for Last 24 Hours 10/11/19 10/12/19 10/13/19 23:59 23:59 23:59 Intake Total 1532.5 / 1772.5 2665.0 / 2665.0 1680 / 1680 Output Total 4850 / 4850 550 / 550 Balance 1532.5 / 1472.5 -2185.0 / -2185.0 1130 / 1130 Microbiology Past 72 Hours 10/11/19 14:39 Blood Culture (Wb) - Anticubital Left Blood Culture - Preliminary No growth in 48 hours. 10/11/19 14:50 Blood Culture (Wb) - Anticubital Right Blood Culture - Preliminary No growth in 48 hours. 10/11/19 15:39 Urine, Clean Catch Urine Culture - Preliminary Culture exhibits no growth. 10/11/19 19:30 Mucosa - Nasopharyngeal Respiratory Panel (PCR) - Final 10/11/19 14:48 Mucosa - Nasopharyngeal Influenza Types A,B Direct FA (ANTONY) - Final Discharge Activity: Return to Normal Activity Weight Bearing Status: Full weight bearing Home Medications: Medications to take at Discharge Albuterol IH (ProAir) [Proair Hfa] 2 puff INHALATION Q6H PRN PRN 10/11/19 Benztropine Mesylate 0.5 mg PO BID 10/11/19 Benztropine Mesylate 1 mg PO QHS 10/11/19 Carbamazepine [Tegretol] 200 mg PO BID 10/11/19 Cholecalciferol (Vitamin D3) [Vitamin D3] 5,000 unit PO DAILY 10/11/19 Divalproex Sodium [Depakote] 500 mg PO TID 10/11/19 Haloperidol 5 mg PO TID 10/11/19 Meloxicam 15 mg PO DAILY@1600 10/11/19 [place]-3 Fatty Acids/Fish Oil [Fish Oil 1,000 mg Capsule] 2,000 mg PO DAILY 10/11/19 Omeprazole 20 mg PO DAILY 10/11/19 Sertraline HCl [Zoloft] 100 mg PO BID 10/11/19 Triamcinolone 0.1% Cream [Kenalog] 1 applicatio TOPICAL BID 10/11/19 Prednisone [Deltasone] 20 mg PO UD #10 tab 10/13/19 levoFLOXacin tablet [Levaquin tablet] 750 mg PO DAILY #4 tab 10/13/19 Following Prescrptions Were Given to Patient: Prednisone [Deltasone] 20 mg PO UD #10 tab [facility] levoFLOXacin tablet [Levaquin tablet] 750 mg PO DAILY #4 tab Transmission Status[facility] Primary Care Physician: Gerald Edwards DO [Primary Care Provider] - Please follow up with your Primary Care Physician in: in 2 weeks Disposition: Home Minutes spent on discharge:: 31 Patient Condition:: Stable Medical Necessity - Tobacco Use Smoking Status: Never smoker Tobacco Use: Non-smoker, Secondhand Meaningful Use Info Meaningful Use Diagnoses (Choose all that apply): None applicable Code Visit Inpatient E&M: 22974 Disch Hosp
== END 2019-10-13 14:55 | disposition home or self-care (01) | DRG 195 ==
LOC: ED 14:52 → PCU 10-12 12:06
PROVIDERS: Admitting Provider Internal Medicine; Emergency Provider Emergency Medicine; Family Provider Student in an Organized Health Care Education/Training Program; PCP Student in an Organized Health Care Education/Training Program; Referring Provider Internal Medicine; Visit Provider Internal Medicine
DX: J18.9 Pneumonia, unspecified organism (principal); F25.9 Schizoaffective disorder, unspecified; R09.02 Hypoxemia
CPT/HCPCS: 36415; 71045; 71275; 80053; 81001; 83605; 84484; 85025; 85610; 85730; 87040; 87086; 87633; 87804; 93005; 93306; 94640; 97802; 99251; 99284; J7030; Q9957; Q9967; A4216; C8929; G0463

== ENCOUNTER → 2019-12-20 | Outpatient (CLI) | payer MEDICARE, SELFPAY ==
[2019-10-11 17:23] VITALS: BMI 27.8
[2019-12-20 09:48] LABS: Hemoglobin 13.8 g/dL (12.0-15.0); Mean Corp Hgb Conc 35.4 g/dL (32-36); Mean Corpuscular Hgb 31.7 pg (27.0-32.0); Mean Corpuscular Volume 89.4 fL (81-99); Mean Platelet Vol. 8.4 fl (6.2-12.0); Platelet Count 170 K/mm3 (150-450); RBC Distribution Width CV 11.4 % (11.6-14.6); RBC Distribution Width SD 36.6 fl (35.1-43.9); Red Blood Count 4.36 M/mm3 (4.2-5.4); White Blood Count 3.9 K/mm3 (4.4-11.0)
[2019-12-20 10:19] LABS: AST(SGOT) 13 U/L (15-37); Alanine Aminotransfer ALT/SGPT 19 U/L (13-56); Sodium Level 125 mmol/L (136-145)
[2019-12-20 10:41] LABS: Carbamazepine (Tegretol) 7.5 ug/mL (4.0-12.0); Valproic Acid (Depakene) Level 112 ug/mL (50-100)
== END | disposition home or self-care (01) ==
PROVIDERS: PCP Student in an Organized Health Care Education/Training Program; Referring Provider Psychiatry & Neurology Psychiatry; Visit Provider Psychiatry & Neurology Psychiatry
DX: Z79.899 Other long term (current) drug therapy (principal)
CPT/HCPCS: 36415; 80156; 80164; 82140; 84295; 84450; 84460; 85027

== ENCOUNTER → 2020-04-02 | Outpatient (CLI) | payer MEDICARE, SELFPAY ==
[2019-10-11 17:23] VITALS: BMI 27.8
[2020-04-02 16:01] LABS: Hematocrit 38.8 % (37-47); Hemoglobin 13.2 g/dL (12.0-15.0); Mean Corpuscular Volume 94.2 fL (81-99); Mean Platelet Vol. 9.5 fl (6.2-12.0); Platelet Count 168 K/mm3 (150-450); RBC Distribution Width CV 12.3 % (11.6-14.6); RBC Distribution Width SD 42.7 fl (35.1-43.9); Red Blood Count 4.12 M/mm3 (4.2-5.4); White Blood Count 4.5 K/mm3 (4.4-11.0)
[2020-04-02 16:14] LABS: Cholesterol 188 mg/dL (200); High Density Lipoprotein 75 mg/dL; Sodium Level 134 mmol/L (136-145); Thyroid Stim Hormone (TSH) 1.05 uIU/mL (0.358-3.74); Triglycerides 101 mg/dL; Very Low Density Lipoprotein 20 mg/dL (5-40)
== END | disposition home or self-care (01) ==
LOC: LABSPEC 15:18
PROVIDERS: PCP Student in an Organized Health Care Education/Training Program; Referring Provider Student in an Organized Health Care Education/Training Program; Visit Provider Student in an Organized Health Care Education/Training Program
DX: E55.9 Vitamin D deficiency, unspecified (principal); E78.5 Hyperlipidemia, unspecified; Z79.899 Other long term (current) drug therapy; Z51.81 Encounter for therapeutic drug level monitoring
CPT/HCPCS: 80061; 82306; 84295; 84443; 85027

== ENCOUNTER → 2020-07-13 16:45 | Outpatient (CLI) | payer MEDICARE, SELFPAY ==
[2019-10-11 17:23] VITALS: BMI 27.8
== END ==
PROVIDERS: PCP Student in an Organized Health Care Education/Training Program; Referring Provider Physician Assistant; Visit Provider Physician Assistant
DX: R05 Cough (principal)
CPT/HCPCS: 87635; U0003

== ENCOUNTER → 2020-12-22 10:09 | Outpatient (CLI) | payer MEDICARE, SELFPAY ==
[2019-10-11 17:23] VITALS: BMI 27.8
[2020-12-22 10:31] LABS: Platelet Count 171 K/mm3 (150-450)
[2020-12-22 10:52] LABS: AST(SGOT) 21 U/L (15-37); Alanine Aminotransfer ALT/SGPT 25 U/L (13-56); Sodium Level 129 mmol/L (136-145)
[2020-12-22 11:03] LABS: Valproic Acid (Depakene) Level 78 ug/mL (50-100)
== END ==
PROVIDERS: PCP Student in an Organized Health Care Education/Training Program; Visit Provider Psychiatry & Neurology Psychiatry
DX: Z79.899 Other long term (current) drug therapy (principal)
CPT/HCPCS: 36415; 80164; 82140; 84295; 84450; 84460; 85049

== ENCOUNTER → 2021-01-15 10:01 | Outpatient (CLI) | payer MEDICARE, SELFPAY ==
[2019-10-11 17:23] VITALS: BMI 27.8
[2021-01-15 10:36] LABS: Absolute Lymphocyte Count 1.41 X10^3/uL (0.83-4.51); Basophil# 0.01 X10^3/uL; Basophil% 0.2 % (0-1); Eosinophil# 0.21 X10^3/uL; Eosinophils% 5.1 % (0-5); Hematocrit 40.1 % (37-47); Hemoglobin 13.7 g/dL (12.0-15.0); Lymphocyte # 1.41 X10^3/ul (4.0); Mean Corp Hgb Conc 34.2 g/dL (32-36); Mean Corpuscular Hgb 31.4 pg (27.0-32.0); Mean Corpuscular Volume 91.8 fL (81-99); Mean Platelet Vol. 8.9 fl (6.2-12.0); Monocyte# 0.51 X10^3/uL; Monocyte% 12.3 % (0-10); NRBC Flagged by Analyzer 0 % (0-5); Neutrophil % 48.2 % (47-70); Platelet Count 172 K/mm3 (150-450); RBC Distribution Width CV 12.2 % (11.6-14.6); RBC Distribution Width SD 41.1 fl (35.1-43.9); Red Blood Count 4.37 M/mm3 (4.2-5.4); White Blood Count 4.2 K/mm3 (4.4-11.0)
[2021-01-15 11:10] LABS: ALB/GLOB Ratio 0.9 RATIO (0.9-2.4); AST(SGOT) 15 U/L (15-37); Alanine Aminotransfer ALT/SGPT 21 U/L (13-56); Albumin, Serum 3.6 g/dL (3.2-5.0); Alkaline Phosphatase 63 U/L (45-117); Anion Gap 2 (5-15); BUN 16 mg/dL (7-18); BUN/Creat Ratio 20.7 RATIO (10-20); Calcium,Total 9.1 mg/dL (8.5-10.1); Chloride 97 mmol/L (98-107); Cholesterol 199 mg/dL (200); Creatinine, Serum 0.77 mg/dL (0.55-1.02); EST Glomerular Filtration Rate 84 mL/min (>60); Est Glom Filt Rate - Afr Amer 102 mL/min (>60); Globulin 4.2 g/dL (2.2-4.2); Glucose 75 mg/dL (74-106); High Density Lipoprotein 95 mg/dL; Potassium 4.3 mmol/L (3.5-5.1); Prolactin 22.8 ng/mL; Protein, Total 7.8 g/dL (6.4-8.2); Sodium Level 132 mmol/L (136-145); Triglycerides 59 mg/dL; Very Low Density Lipoprotein 12 mg/dL (5-40)
[2021-01-15 11:15] LABS: Hemoglobin A1c 5.2 % (3.8-5.6)
== END ==
PROVIDERS: PCP Student in an Organized Health Care Education/Training Program; Referring Provider Psychiatry & Neurology Psychiatry; Visit Provider Psychiatry & Neurology Psychiatry
DX: E78.5 Hyperlipidemia, unspecified (principal); R73.01 Impaired fasting glucose; Z79.899 Other long term (current) drug therapy
CPT/HCPCS: 36415; 80053; 80061; 83036; 84146; 85025

== ENCOUNTER → 2021-04-29 | Outpatient (CLI) | payer MEDICARE, SELFPAY ==
[2019-10-11 17:23] VITALS: BMI 27.8
[2021-04-29 13:46] LABS: Cholesterol 196 mg/dL (200); High Density Lipoprotein 83 mg/dL; T4 Free Direct 0.79 ng/dL (0.76-1.46); Thyroid Stim Hormone (TSH) 1.14 uIU/mL (0.358-3.74); Triglycerides 86 mg/dL; Very Low Density Lipoprotein 17 mg/dL (5-40)
[2021-04-29 13:48] LABS: Hemoglobin A1c 5.2 % (3.8-5.6)
[2021-04-29 15:32] LABS: Vitamin D,25 Hydroxy 44.5 ng/mL
== END | disposition home or self-care (01) ==
LOC: LABSPEC 12:48
PROVIDERS: PCP Student in an Organized Health Care Education/Training Program; Referring Provider Registered Nurse; Visit Provider Registered Nurse
DX: R53.83 Other fatigue (principal)
CPT/HCPCS: 80061; 82306; 83036; 84439; 84443

== ENCOUNTER → 2021-07-16 | Outpatient (CLI) | payer MEDICARE, SELFPAY ==
[2021-07-16 15:50] LABS: Mucous, Urine 0 SEEN /hpf (<or=2+); Red Blood Cells-Urine 0 SEEN /hpf (0-5); White Blood Cells 0 SEEN /hpf (0-5)
[2021-07-16 16:08] LABS: Color, Urine Yellow (Yellow); Glucose, Dipstick Normal (Normal); Ketone-Dipstick Negative (Negative); Leukocyte Esterase-Dipstick 100 /ul (Negative); Nitrite-Dipstick Negative (Negative); Occult Blood-Urine 10 /ul (Negative); Protein-Dipstick Negative (Negative); Urine Bilirubin Dipstick Negative (Negative); Urine Clarity Cloudy (Clear); Urine Urobilinogen Normal (Normal)
[2021-07-16 16:29] LABS: Bacteria 1+ /hpf (None Seen); Squamous Epithelial Cells - UA 25-50 SEEN /hpf (5-10)
== END | disposition home or self-care (01) ==
LOC: LABSPEC 15:34
PROVIDERS: PCP Student in an Organized Health Care Education/Training Program; Referring Provider Family Medicine; Visit Provider Family Medicine
DX: R31.0 Gross hematuria (principal)
CPT/HCPCS: 81001; 87077; 87086; 87088; 87186

== ENCOUNTER → 2021-07-25 | Outpatient (CLI) | payer MEDICARE, SELFPAY | END | disposition home or self-care (01) | LOC: LABSPEC 16:47 | PROVIDERS: PCP Student in an Organized Health Care Education/Training Program; Referring Provider Nurse Practitioner Family; Visit Provider Nurse Practitioner Family | DX: M54.50 Low back pain, unspecified (principal) | CPT/HCPCS: 87077; 87086; 87088; 87186 ==

== ENCOUNTER → 2021-08-12 | Outpatient (CLI) | payer MEDICARE, SELFPAY ==
[2021-08-12 16:34] LABS: Bacteria 0 SEEN /hpf (None Seen); Mucous, Urine 0 SEEN /hpf (<or=2+); Red Blood Cells-Urine 0 SEEN /hpf (0-5); White Blood Cells 0 SEEN /hpf (0-5)
[2021-08-12 17:04] LABS: Color, Urine Yellow (Yellow); Glucose, Dipstick Normal (Normal); Ketone-Dipstick Negative (Negative); Leukocyte Esterase-Dipstick Negative /ul (Negative); Nitrite-Dipstick Negative (Negative); Occult Blood-Urine Negative /ul (Negative); Protein-Dipstick Negative (Negative); Urine Bilirubin Dipstick Negative (Negative); Urine Clarity Clear (Clear); Urine Urobilinogen Normal (Normal)
[2021-08-12 17:44] LABS: Squamous Epithelial Cells - UA 0-5 SEEN /hpf (5-10)
== END | disposition home or self-care (01) ==
LOC: LABSPEC 15:43
PROVIDERS: PCP Student in an Organized Health Care Education/Training Program; Visit Provider Student in an Organized Health Care Education/Training Program
DX: R32 Unspecified urinary incontinence (principal)
CPT/HCPCS: 81001; 87086; 87088

== ENCOUNTER → 2021-09-25 11:07 | Outpatient (CLI) | payer MEDICARE, SELFPAY ==
[2021-09-25 11:34] LABS: Hematocrit 41.4 % (37-47); Mean Corp Hgb Conc 33.8 g/dL (32-36); Mean Corpuscular Hgb 30.5 pg (27.0-32.0); Mean Corpuscular Volume 90.2 fL (81-99); Mean Platelet Vol. 8.9 fl (6.2-12.0); Platelet Count 161 K/mm3 (150-450); RBC Distribution Width CV 12.7 % (11.6-14.6); RBC Distribution Width SD 41.8 fl (35.1-43.9); Red Blood Count 4.59 M/mm3 (4.2-5.4); White Blood Count 3.3 K/mm3 (4.4-11.0)
[2021-09-25 11:59] LABS: Ammonia < 10.0 umol/L (11-32); Valproic Acid (Depakene) Level 72 ug/mL (50-100)
[2021-09-25 12:04] LABS: ALB/GLOB Ratio 0.8 RATIO (0.9-2.4); AST(SGOT) 29 U/L (15-37); Alanine Aminotransfer ALT/SGPT 32 U/L (13-56); Albumin, Serum 3.5 g/dL (3.2-5.0); Alkaline Phosphatase 64 U/L (45-117); Anion Gap 6 (5-15); BUN 11 mg/dL (7-18); BUN/Creat Ratio 13.4 RATIO (10-20); Calcium,Total 9.5 mg/dL (8.5-10.1); Chloride 98 mmol/L (98-107); Creatinine, Serum 0.82 mg/dL (0.55-1.02); EST Glomerular Filtration Rate 78 mL/min (>60); Est Glom Filt Rate - Afr Amer 95 mL/min (>60); Globulin 4.4 g/dL (2.2-4.2); Glucose 83 mg/dL (74-106); Potassium 4.4 mmol/L (3.5-5.1); Protein, Total 7.9 g/dL (6.4-8.2); Sodium Level 133 mmol/L (136-145)
== END ==
PROVIDERS: PCP Student in an Organized Health Care Education/Training Program; Visit Provider Psychiatry & Neurology Psychiatry
DX: Z79.899 Other long term (current) drug therapy (principal)
CPT/HCPCS: 36415; 80053; 80164; 82140; 85027

== ENCOUNTER 2022-06-20 08:23 | Day surgery (SDC) | payer MEDICARE, SELFPAY ==
[2022-06-20] VITALS (10 sets, daily range): BP systolic 120–141; BP diastolic 78–87; PULSE 76–92; RESP 16–18; TEMP 36.2–36.4; O2SAT 95–100; BMI 32.1
[2022-06-20] MEDS: Lactated Ringers 1,000 ML 15 ML IV ×2 (08:51→10:30)
[2022-06-20 09:05] LABS: Absolute Lymphocyte Count 1.51 X10^3/uL (0.83-4.51); Absolute Neutrophil Count 1.8 X10^3/uL (2.0-7.7); Basophil# 0.01 X10^3/uL; Basophil% 0.2 % (0-1); Eosinophil# 0.15 X10^3/uL; Eosinophils% 3.7 % (0-5); Hematocrit 37.3 % (37-47); Hemoglobin 12.7 g/dL (12.0-15.0); Lymphocyte # 1.51 X10^3/ul (0.83-4.51); Lymphocyte % 37.7 % (19-41); Mean Platelet Vol. 9.1 fl (6.2-12.0); Monocyte# 0.52 X10^3/uL; NRBC Flagged by Analyzer 0 % (0-5); Neutrophil # 1.79 X10^3/uL (2.7-7.7); Neutrophil % 44.7 % (47-70); Platelet Count 172 K/mm3 (150-450); RBC Distribution Width CV 12.1 % (11.6-14.6); RBC Distribution Width SD 40.4 fl (35.1-43.9)
[2022-06-20 09:16] LABS: Anion Gap 6 (5-15); BUN 22 mg/dL (7-18); BUN/Creat Ratio 30.3 RATIO (10-20); Calcium,Total 8.9 mg/dL (8.5-10.1); Chloride 95 mmol/L (98-107); Creatinine, Serum 0.73 mg/dL (0.55-1.02); EST Glomerular Filtration Rate 90 mL/min (>60); Est Glom Filt Rate - Afr Amer 109 mL/min (>60); Estimated Creatinine Clearance 82.96 ml/min; Glucose 75 mg/dL (74-106); Potassium 4.3 mmol/L (3.5-5.1); Sodium Level 130 mmol/L (136-145)
--- NOTE | 2022-06-20 09:55 | EMB_PTH ---
PATIENT: NICOLE LUGO [place] [facility][id number] AGE/SX: 51/F ROOM: RE06/20/[address]: Dr. Courtney Spangler, MDDOB: 1970 BED: DIS: 06/20/2022 SPEC #: [id number] RECD: 06/20/22 12:22 STATUS: WILDA NOHEMY #: [id number] KATHRYN: 06/20/22 09:[address]: Courtney Spangler DEPT: SURGICAL PATHOLOGY RECD BY: Zulay Horne ENTERED: 06/20/22 12:51 SP TYPE: ENDOM BX/C BALAJI DR: Dr. Gerald Edwards, Tissues: Endometrium, NOS Procedures: Surgery Specimen Level IV HEADER OPERATION: Hysteroscopy, dilation and curettage PRE-OP DIAGNOSIS: Postmenopausal bleeding TISSUE SUBMITTED: Endometrial curettings MICROSCOPIC DIAGNOSIS Endometrium, curettings: Scant strips of benign superficial glandular and squamous mucosa. AM:dung 06/24/2022 MICROSCOPIC DESCRIPTION Slides are reviewed. GROSS DESCRIPTION Received in fixative is one container labeled with the patient's name and designated endometrial curettings. The specimen consists of multiple fragments of hemorrhagic soft tissue that in aggregate measure 1.5 x 0.5 x 0.1 cm. The specimen is totally submitted in one cassette. / SJ:dung 06/20/2022 TC:5 CPT: 05257
--- NOTE | 2022-06-20 10:38 | PCM.OPRPT ---
Report of Operation Date of Procedure: 06/20/22 Pre-Operative Diagnosis: PMB Post-Operative Diagnosis: same, atrophic endometrium Surgery/Procedure Performed:: Hysteroscopy, D&C Description of Surgical Findings:: bilateral tubal ostia noted. atrophic endometrium with only scant tissue noted on posterior aspect. No masses noted. Surgeon: Courtney Spangler business law professor: None Type of Anesthesia: MAC Specimen's removed: endometrial curettings Drains: none Estimated Blood Loss (mL): <5cc Fluids Replaced: 1100 Description of Procedure: Informed consent was obtained the patient was taken the operating room she was placed in supine position. She was given anesthesia. She was then placed in [facility] where she was prepped and draped in the normal sterile fashion. At this time the pediatric speculum placed. Single-tooth tenaculum was used to gently grasp the anterior lip the cervix. At this time the uterine cavity was sounded to approximately 6 cm. Gentle dilatation was performed once adequate dilatation of the cervix was achieved the hysteroscope using normal saline as a distention medium was placed. Tubal ostia visualized. Atrophic endometrium- scant tissue on posteior aspect noted. no polyps or fibroid noted. This time hysteroscopy was complete. Gentle curettage was performed. small endometrial pippelle also used to obtain minimal amt of tissue. Tissue will be sent to pathology for evaluation. Tenaculum removed. scant bleeding from hymen- overall Good hemostasis. Instrument, lap count correct x 2. Vaginal Sweep was negative. Grafts/Implants Used: none Procedure Start Time: 10:28 Procedure Stop Time: 10:37 Complications none Admit VTE Documentation VTE Present on Admission: Yes VTE Mechan Device Prophylaxis: SCD's VTE Pharm Prophylaxis ordered?: No Reason prophylaxis not ordered:: Procedure Not Indicated
--- NOTE | 2022-06-20 10:43 | DCINST_ITS ---
Discharge Instructions Procedure D&C Diet Discharge Diet: No restrictions Activity May resume sexual activity in: 1 week Dressing / Incision Call your doctor if you observe: Fever of 101 or Higher, Inability to urinate, Using more than 1 pad per hour and Uncontrolled pain Follow Up Care Please Follow Up With: Courtney Spangler MD When: 1-2 weeks post OP if you need an appointment please call [phone] Test Results: Test results from this visit will be discussed in further detail at your follow- up appointment, if applicable. Discharge Plan Admission Attending Provider: Courtney Spangler Primary Care Provider: Gerald Edwards Discharge Orders/Prescriptions Prescriptions: No Action haloperidol 5 mg tablet 5 mg PO TID Label Comments: Take 1 tablet by mouth three times a day meloxicam 15 MG tablet 15 mg PO DAILY@1600 Label Comments: TAKE 1 TABLET BY MOUTH ONCE DAILY WITH FOOD sertraline 100 mg tablet 100 mg PO BID Label Comments: Take 2 tablet by mouth once a day divalproex 500 mg tablet,delayed release (DR/EC) 500 mg PO TID Label Comments: Take 1 tablet by mouth three times a day benztropine 1 MG tablet 0.5 mg PO BID benztropine 1 MG tablet 1 mg PO QHS albuterol sulfate 1 PUFF inhaler 2 puff inhalation Q6H PRN PRN (Reason: Sob &/Or Wheezing) Label Comments: INHALE 2 PUFFS BY MOUTH EVERY 6 HOURS NEEDED FOR WHEEZING OR SHORTNESS OF BREATH cholecalciferol (vitamin D3) 5,000 UNIT capsule 5,000 unit PO DAILY omega-3 fatty acids-fish oil 1 EACH capsule 2,000 mg PO DAILY buspirone [BuSpar] 5 mg Tablet 5 mg PO BID PRN (Reason: Anxiety) oxybutynin chloride 5 mg Tablet 5 mg PO DAILY loratadine 10 mg Capsule 10 mg PO DAILY fluticasone propion-salmeterol [Advair Diskus] 100-50 mcg/dose Blister With Device 1 inh INHALATION BID Referrals / Follow Up: Gerald Edwards DO [Primary Care Provider] - Disposition Disposition (needs filled in before D/C Order can be placed): Home, Self Care
== END 2022-06-20 12:21 | disposition home or self-care (01) ==
LOC: SDC 08:26 → AC 08:27
PROVIDERS: PCP Student in an Organized Health Care Education/Training Program; Referring Provider Obstetrics & Gynecology; Visit Provider Obstetrics & Gynecology
PROC: 0UDB8ZZ Extraction of Endometrium, Via Natural or Artificial Opening Endoscopic (ICD-10-PCS; CPT 58558; principal; 2022-06-20 09:45)
DX: N85.8 Other specified noninflammatory disorders of uterus (principal); F20.9 Schizophrenia, unspecified; N95.0 Postmenopausal bleeding; F41.9 Anxiety disorder, unspecified; F32.A Depression, unspecified; Z79.899 Other long term (current) drug therapy
CPT/HCPCS: 58558; 00952; 80048; 85025; 88305; J7120; J2405

== ENCOUNTER → 2023-07-15 | Outpatient (CLI) | payer MEDICARE, SELFPAY ==
[2023-07-15 11:26] LABS: Hematocrit 39.6 % (37-47); Hemoglobin 13.5 g/dL (12.0-15.0); Mean Corp Hgb Conc 34.1 g/dL (32-36); Mean Corpuscular Hgb 31.3 pg (27.0-32.0); Mean Corpuscular Volume 91.7 fL (81-99); Platelet Count 151 K/mm3 (150-450); RBC Distribution Width CV 12.9 % (11.6-14.6); RBC Distribution Width SD 43.7 fl (35.1-43.9); Red Blood Count 4.32 M/mm3 (4.2-5.4); White Blood Count 4.1 K/mm3 (4.4-11.0)
[2023-07-15 11:35] LABS: Valproic Acid (Depakene) Level 91 ug/mL (50-100)
[2023-07-15 11:37] LABS: Ammonia < 10.0 umol/L (11-32)
[2023-07-15 11:40] LABS: ALB/GLOB Ratio 0.8 RATIO (0.9-2.4); AST(SGOT) 24 U/L (15-37); Alanine Aminotransfer ALT/SGPT 20 U/L (13-56); Albumin, Serum 3.4 g/dL (3.2-5.0); Alkaline Phosphatase 61 U/L (45-117); Anion Gap 3 (5-15); BUN 8 mg/dL (7-18); BUN/Creat Ratio 10.3 RATIO (10-20); Calcium,Total 9.5 mg/dL (8.5-10.1); Chloride 95 mmol/L (98-107); Creatinine, Serum 0.78 mg/dL (0.55-1.02); EST Glomerular Filtration Rate 83 mL/min (>60); Est Glom Filt Rate - Afr Amer 100 mL/min (>60); Globulin 4.4 g/dL (2.2-4.2); Glucose 87 mg/dL (74-106); Potassium 4.4 mmol/L (3.5-5.1); Prolactin 21.9 ng/mL; Protein, Total 7.8 g/dL (6.4-8.2); Sodium Level 127 mmol/L (136-145)
== END | disposition home or self-care (01) ==
LOC: LAB 10:51
PROVIDERS: PCP Student in an Organized Health Care Education/Training Program; Referring Provider Psychiatry & Neurology Psychiatry; Visit Provider Psychiatry & Neurology Psychiatry
DX: Z79.899 Other long term (current) drug therapy (principal)
CPT/HCPCS: 36415; 80053; 80164; 82140; 84146; 85027

== ENCOUNTER → 2024-01-27 | Outpatient (CLI) | payer MEDICARE, SELFPAY | END | disposition home or self-care (01) | LOC: LABSPEC 15:40 | PROVIDERS: PCP Student in an Organized Health Care Education/Training Program; Referring Provider Otolaryngology Otolaryngology/Facial Plastic Surgery; Visit Provider Otolaryngology Otolaryngology/Facial Plastic Surgery | DX: J32.9 Chronic sinusitis, unspecified (principal) | CPT/HCPCS: 87070; 87077; 87186; 87205 ==

== ENCOUNTER 2024-06-08 20:08 | Emergency (ER) | payer MEDICARE, SELFPAY ==
[2024-06-08 20:10] VITALS: BP 140/87; PULSE 81; RESP 18; TEMP 36.6; O2SAT 100; BMI 28.7
--- NOTE | 2024-06-08 22:23 | CT_ITS ---
EXAM: CT LUMBAR SPINE WITHOUT INTRAVENOUS CONTRAST CLINICAL INDICATION: pain TECHNIQUE: Helically acquired images were obtained of the lumbar spine without intravenous contrast. 2D reformats were reviewed. This CT exam was performed using one or more of the following dose reduction techniques: automated exposure control, adjustment of the mA and/or kV according to patient size, and/or use of iterative reconstruction technique. RADIATION DOSE: CTDIvol = 16.26 mGy, DLP = 488.65 mGy-cm COMPARISON: No relevant prior studies available. FINDINGS: VERTEBRAE: L5 pars defects with mild grade 1 anterolisthesis of L5 on S1. Diffuse facet joint hypertrophy. No fracture. No discrete lytic or blastic abnormality. DISCS/SPINAL CANAL/NEURAL FORAMINA: Degenerative changes of the intervertebral discs. No critical stenosis. VASCULATURE: Visualized abdominal aorta is not dilated. LYMPH NODES: Unremarkable. No retroperitoneal adenopathy. CT/Spine Lumbar without Contrast IMPRESSION: 1. No acute injuries identified involving the lumbar spine. 2. Degenerative changes. 3. L5 pars defects with mild grade 1 anterolisthesis of L5 on S1. Electronically Signed: Myles Ling MD at 23:26 EDT ,
--- NOTE | 2024-06-08 22:23 | CT_ITS ---
EXAM: CT PELVIS WITHOUT INTRAVENOUS CONTRAST CLINICAL INDICATION: Pain -- Bilateral TECHNIQUE: Helically acquired images were obtained of the pelvis without intravenous contrast. This CT exam was performed using one or more of the following dose reduction techniques: automated exposure control, adjustment of the mA and/or kV according to patient size, and/or use of iterative reconstruction technique. RADIATION DOSE: CTDIvol = 16.22 mGy, DLP = 489.97 mGy-cm COMPARISON: No relevant prior studies available. FINDINGS: BOWEL: Unremarkable as visualized. No bowel distention. No focal inflammatory change. APPENDIX: No evidence of acute appendicitis. INTRAPERITONEAL SPACE: Unremarkable. No ascites or other fluid collection. No free air. BLADDER: Unremarkable. REPRODUCTIVE: Unremarkable as visualized. No mass. BONES/JOINTS: Unremarkable. No suspicious lytic or blastic abnormality. SOFT TISSUES: Unremarkable. No pelvic wall hernia. LYMPH NODES: Unremarkable. No enlarged lymph nodes. CT/Pelvis without IV Contrast IMPRESSION: Unremarkable CT of the pelvis. Electronically Signed: Myles Ling MD at 23:33 EDT ,
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
[2024-06-08] MEDS: Ketorolac 30 MG/ML Syringe IM (22:39)
[2024-06-08] MEDS: Orphenadrine 60 MG/2 ML Ampul IM (22:39)
[2024-06-09 00:24] VITALS: BP 147/82; PULSE 88; RESP 18; TEMP 36.1; O2SAT 95
== END 2024-06-09 00:25 | disposition home or self-care (01) ==
PROVIDERS: Emergency Provider Emergency Medicine; PCP Student in an Organized Health Care Education/Training Program; Visit Provider Emergency Medicine
DX: M51.17 Intervertebral disc disorders with radiculopathy, lumbosacral region (principal); F31.9 Bipolar disorder, unspecified; M25.551 Pain in right hip; M25.552 Pain in left hip; M54.50 Low back pain, unspecified; G89.29 Other chronic pain; M47.816 Spondylosis without myelopathy or radiculopathy, lumbar region
CPT/HCPCS: 72131; 72192; 96372; 99282

== ENCOUNTER 2024-06-15 14:22 | Inpatient (IN) | payer MEDICARE, SELFPAY ==
[2024-06-15 14:23] VITALS: BP 128/85; PULSE 83; RESP 16; TEMP 36.5; O2SAT 98
--- NOTE | 2024-06-15 14:37 | EX.ED.GENINJ ---
HPI History of Present Illness Chief Complaint: Fall Detail of Chief Complaint: Injury due to multiple falls yesterday and today Informant: patient and EMS Onset/Context/Timing Onset: Today and Yesterday Mechanism/Context: Blunt Injury (Nose, right and left knee, right and left thigh/hip and right and left leg) and Fall Quality of Pain: Aching Location: Right and left buttocks Current Severity: Mild Maximum Severity: Moderate Worsened by: Palpation Relieved by: Nothing Associated Symptoms Associated Symptoms: Positive for Weakness; Negative for Parasthesias, Loss of function, Inability to ambulate, Loss of consciousness or Amnesia Narrative Narrative: Patient is a 53-year-old woman. She fell prior to EMS arrival. She is in prone position. Said multiple falls today and multiple falls yesterday. She denies history of neurologic disease. She specifically denies history of seizures, Parkinson's disease and TIA/stroke. She has history of back pain with sciatica. She denies bowel bladder dysfunction. She denies radicular pain. She denies saddle paresthesia or anesthesia. Patient is not on antithrombotic or anticoagulant. She denies loss of conscious. Denies ringing or ears. She states she has decreased hearing, which is chronic. She denies difficulty breathing from her nose. She denies dental pain or trauma. She denies neck pain. She denies paresthesia, anesthesia or motor weakness upper lower extremity. She does endorse tremor due to medication for her psychiatric disorder. She denies chest pain, shortness of breath, difficulty breathing, upper back pain or lower back pain. She does have bruises to her lower extremity. She states she has bruises right and left thigh, right and left knee, right and left leg and buttocks. Tetanus Immunization: <5 years (2019) Prior similar symptoms: Yes Recent Illness/Hospitalization: No PFSH PFSH Medical History Post-menopausal Wears glasses Schizophrenia Depression Anxiety Arthritis Bladder disease Back pain Heartburn Non-smoker Hx of allergy Hx of sepsis History of echocardiogram Home Medications ?Medication ?Instructions ?Recorded ?Last Taken ?Type albuterol sulfate 90 mcg/actuation 2 puff inhalation Q6H PRN PRN Sob 10/11/19 10/11/19 History aerosol inhaler &/Or Wheezing benztropine 1 mg tablet 0.5 mg PO BID schziphrenia 10/11/19 10/11/19 History benztropine 1 mg tablet 1 mg PO QHS schizophrenia 10/11/19 06/20/22 07:00 History cholecalciferol (vitamin D3) 125 5,000 unit PO DAILY supplement 10/11/19 10/11/19 History mcg (5,000 unit) capsule divalproex 500 mg tablet,delayed 500 mg PO TID schizophrenia 10/11/19 06/20/22 07:00 History release haloperidol 5 mg tablet 5 mg PO TID schizophrenia 10/11/19 06/20/22 07:00 History meloxicam 15 mg tablet 15 mg PO DAILY@1600 L knee pain 10/11/19 10/10/19 History omega-3 fatty acids-fish oil 340 2,000 mg PO DAILY supplement 10/11/19 10/10/19 History mg-1,000 mg capsule sertraline 100 mg tablet 100 mg PO BID depression 10/11/19 06/20/22 07:00 History buspirone 5 mg tablet 5 mg PO BID PRN Anxiety 06/13/22 Unknown History fluticasone 100 mcg-salmeterol 50 1 inh inhalation BID 06/13/22 Unknown History mcg/dose blistr powdr for inhalation (Advair Diskus) loratadine 10 mg capsule 10 mg PO DAILY 06/13/22 Unknown History oxybutynin chloride 5 mg tablet 5 mg PO DAILY 06/13/22 Unknown History cyclobenzaprine 10 mg tablet 10 mg PO TID PRN Muscle Spasm #20 06/09/24 Unknown Rx TABLETS naproxen 500 mg tablet (Naprosyn) 500 mg PO BID PRN pain #20 tabs 06/09/24 Unknown Rx montelukast 10 mg tablet 10 mg PO DAILY 06/15/24 Unknown History Allergy/AdvReac Type Severity Reaction Status Date / Time cat dander Allergy Shortness Verified 06/20/22 08:41 of breath dog dander Allergy Shortness Verified 06/20/22 08:41 of breath Penicillins (PCN) Allergy Unknown Verified 06/20/22 08:41 trifluoperazine (From Allergy Unknown Verified 06/20/22 08:41 Stelazine) Surgical History Hx of oral surgery Hx of colonoscopy Hx of wisdom tooth extraction Social History (Updated 06/15/24 @ 14:[address] Jalil Ford MD) household members: family Smoking Status: Never smoker ROS ROS ED Constitutional Constitutional ED: Denies chills, fever(s), subjective, sweats or weight loss Eyes Eyes: Denies blurry vision or change in vision ENT ENT ED: Denies ear pain, rhinorrhea or sore throat Cardiovascular Cardiovascular: Denies chest pain, palpitations or racing heartbeat Respiratory/Chest Respiratory/Chest: Denies cough, dyspnea or dyspnea on exertion Gastrointestinal Gastrointestinal: Denies abdominal pain, diarrhea, melena, nausea or vomiting Genitourinary Genitourinary ED: Denies dysuria, hematuria or urinary frequency Musculoskeletal Musculoskeletal: Denies arthralgias, back pain, myalgias or neck pain Integumentary Reports Abrasions Neurologic Neurologic: Reports weakness; Denies headache(s) or paresthesias Psychiatric Psychiatric: Reports depression; Denies suicidal thoughts Endocrine Endocrinology: Denies cold intolerance Hematologic/Lymphatic Hematologic/Lymphatic: Denies easy bleeding or easy bruising EXAM Physical Exam Const Vital Signs: 06/15/24 14:23 06/15/24 14:29 06/15/24 16:22 Temperature 97.7 F L Temperature Source Tympanic Pulse Rate 83 81 Respiratory Rate 16 16 Respiratory Effort Normal Respiratory Depth Normal Respiratory Pattern Normal Blood Pressure 128/85 H 142/96 H Blood Pressure Mean 99 111 Pulse Ox 98 96 Oxygen Delivery Method Room Air Room Air Room Air 06/15/24 18:00 Temperature Temperature Source Pulse Rate 85 Respiratory Rate 16 Respiratory Effort Respiratory Depth Respiratory Pattern Blood Pressure 146/90 H Blood Pressure Mean 108 Pulse Ox 98 Oxygen Delivery Method Room Air Positive well nourished and well developed Constitutional Narrative: Patient has a flat affect with slow psychomotor skills. General Appearance ED: well developed HEENT Reports TM's clear HEENT Narrative: There is a superficial laceration near the bridge of the nose. There is no septal deviation hematoma. There is no step-off of the introital rim nor is there any hypoesthesia to the informal nerve. Patient has no evidence of entrapment and denies diplopia. She denies diplopia with upward gaze. There is no hemotympanum. There is no clinical findings of basilar skull fracture. trauma and tenderness Tympanic Membrane ED: Yes TM's clear Eyes PERRL and EOMs intact bilaterally General Eye ED: Yes other Other Details: There is no subconjunctival hemorrhage. Neck full ROM Neck Narrative: There is no midline posterior neck pain and she has full active range of motion with no grimacing, hesitation or complaint of pain. Chest Wall inspection of chest normal and palpation of chest normal Resp normal respiratory effort and clear to auscultation bilaterally Cardio regular rhythm, S1 normal heart sound, S2 normal heart sound and no murmurs Rate: regular rate GI normal to inspection, nondistended, normoactive bowel sounds, non-tender, non-distended and no masses Back/Spine normal to inspection and no thoracic nor lumbar tenderness Back/Spine Narrative: There is pain outpatient over the right and left ischial tuberosity. There is no pain ovation over the pubic symphysis region or the right or left iliac wing. Thoracic Spine / Upper Back: Negative for thoracic spinal tenderness Lumbar Spine / Lower Back: straight leg raise negative bilaterally Extremity Extremity Narrative: There is pain to palpation over the proximal anterior lateral right and left thigh, there is abrasions and bruising noted to the right and left knee region, proximal right and left anterior leg and anterior left ankle. There is no pain the patient over the greater tuberosity of the right or left hip, patella, joint line, right or left lateral or medial malleolus. There is no pain to patient over the right or left foot or the toes. Patient is able to extend her right left knee 280 degrees and flex to approximately 90 degrees. There is no laxity varus valgus tress testing. There is no joint line tenderness. The patella is not ballotable. There is no effusion. Fazal's test was negative. There is no pain the patient in the popliteal fossa or fullness in the popliteal fossa. Patient has a palpable DP and PT pulse. General Extremety ED: Negative for deformity or edema General Extremity: Negative for deformity or edema Neuro oriented x3 and CN's II-XII intact bilaterally Leander Coma Scale: document GCS findings Spontaneous Obeys Commands Oriented 15 Sensorium / Orientation: alert Plantar Reflex: Downgoing: bilateral (There is no clonus Babinski sign noted.) Psych Mood & Affect: depressed Skin no rashes or lesions noted, No no wounds, skin turgor normal and no jaundice Trauma: abrasion MDM MDM MDM Narrative Medical decision making narrative: Since the patient has pain ovation of the right and left ischial tuberosity will obtain x-ray of the pelvis. In my opinion imaging of the extremities is not indicated. Per the [place] CT head rule and [place] rule imaging of the head is not indicated. Patient C-spine was cleared per [facility] criteria. Since patient had multiple falls will obtain CBC to assess white count H&H to rule out anemia, electrolyte panel UA to assess for blood in which may be an indicator for rhabdomyolysis. Lab Data Attestation: I reviewed the patient's lab results. Lab results narrative: CBC is unremarkable. UA reveals bacteria without pyuria. Macro was positive for leukoesterase, occult blood and ketones. Since gravity is normal at 1.010. Comprehensive metabolic panel reveals a sodium of 122 and a potassium of 5.4. Since patient has hyponatremia with hyper kalemia TSH, cortisol, urine and serum osmolarity was ordered. Labs: Laboratory Results - last 24 hr 06/15/24 06/15/24 15:00 15:23 WBC 5.9 RBC 4.15 L Hgb 12.9 Hct 37.4 MCV 90.1 MCH 31.1 MCHC 34.5 RDW Std Deviation 44.2 H RDW Coeff of Shanika 13.3 Plt Count 168 MPV 8.9 Immature Gran % (Auto) 1.000 H Neut % (Auto) 60.3 Lymph % (Auto) 23.8 [place] % (Auto) 12.9 H Eos % (Auto) 1.5 Baso % (Auto) 0.5 Absolute Neuts (auto) 3.6 Absolute Lymphs (auto) 1.40 Nucleated RBC % 0 Sodium 122 L Potassium 5.4 H Chloride 89 L Carbon Dioxide 24.0 Anion Gap 9 BUN 19 H Creatinine 0.79 Estim Creat Clear Calc 88.06 Est GFR (MDRD) Af Amer 98 Est GFR (MDRD) Non-Af 81 BUN/Creatinine Ratio 24.0 H Glucose 73 L Calcium 9.3 Total Bilirubin 0.40 AST 43 H ALT 19 Alkaline Phosphatase 59 Total Protein 7.5 Albumin 3.4 Globulin 4.1 Albumin/Globulin Ratio 0.8 L Urine Color Yellow Urine Clarity Sl. Cloudy Urine pH 8.0 Ur Specific [place] 1.010 Urine Protein Negative Urine Glucose (UA) Normal Urine Ketones 5 H Urine Occult Blood 10 H Urine Nitrite Negative Urine Bilirubin Negative Urine Urobilinogen Normal Ur Leukocyte Esterase 25 H Urine RBC 0-5 SEEN Urine WBC 0-5 SEEN Ur Squamous Epith Cells 0-5 SEEN Amorphous Sediment 1+ Urine Bacteria 2+ Urine Mucus 0 SEEN Radiography Chest X-Ray - ED: 1 View (Single view x-ray of the pelvis reveals no evidence of fracture. The right and left femur, proximally, are also normal. This has been reviewed by me.) and Read by ED Physician (Hospitalist ordered 2 view x-rays of the right and left knee which were reviewed by me. There is evidence of fracture, subluxation dislocation or effusion.) Diagnostic Testing: Clinical Impression(s) from Imaging Studies Pelvis X-Ray 06/15/24 15:25 IMPRESSION: Normal x-ray examination of the pelvis. Electronically Signed: Valerio Knott MD at 15:35 EDT , Brain CT 06/15/24 17:44 IMPRESSION: Normal unenhanced CT scan of the brain. Electronically Signed: Tung Oscar MD at 18:06 EDT , CT of the head was ordered by the hospitalist and per my review there is no evidence of epidural, subdural, traumatic subarachnoid hemorrhage or intraparenchymal contusion. No acute fracture. There is opacification of left maxillary sinus. This is found reviewed interpreted by me at 1755. Treatment and Re-Evaluation Narrative: Since the x-ray reveals no fracture we will have nurse ambulate patient and perform orthostatic vital signs. Patient's gait was unsteady stable per nursing. Will call hospitalist. Patient was asked specifically if she has dysuria, frequency or urgency. She informed me that one of the medicine that she is taking can cause a yeast infection. Urine revealed bacteria and not yeast. Discharge Plan Dx/Rx/DC Orders Clinical Impression: Multiple falls, Unsteady gait, Laceration of nose, Contusion of leg, left, multiple sites, Abrasions of multiple sites, Asymptomatic bacteriuria, Elevated blood-pressure reading without diagnosis of hypertension, Acute hyponatremia, Acute hyperkalemia Disposition Disposition: Acute Care Hospital [facility]
[2024-06-15] MEDS: HYDROcodone Bitartrate/Apap 5/325 Tablet PO (14:55)
[2024-06-15] MEDS: Ondansetron ODT 4 MG Tablet PO (14:56)
[2024-06-15 15:08] LABS: Mucous, Urine 0 SEEN /hpf (<or=2+)
[2024-06-15 15:12] LABS: Color, Urine Yellow (Yellow); Glucose, Dipstick Normal (Normal); Ketone-Dipstick 5 mg/dl (Negative); Leukocyte Esterase-Dipstick 25 /ul (Negative); Nitrite-Dipstick Negative (Negative); Occult Blood-Urine 10 /ul (Negative); Protein-Dipstick Negative (Negative); Urine Bilirubin Dipstick Negative (Negative); Urine Clarity Sl. Cloudy (Clear); Urine Urobilinogen Normal (Normal)
[2024-06-15 15:17] LABS: Amorphous Sediment 1+; Bacteria 2+ /hpf (None Seen); Red Blood Cells-Urine 0-5 SEEN /hpf (0-5)
[2024-06-15 15:18] LABS: Squamous Epithelial Cells - UA 0-5 SEEN /hpf (5-10); White Blood Cells 0-5 SEEN /hpf (0-5)
--- NOTE | 2024-06-15 15:25 | RAD_ITS ---
STUDY: X-RAY - PELVIS REASON FOR EXAM: Female, 53 years old. Injury/Pain TECHNIQUE: One view of the pelvis was obtained. COMPARISON: None. FINDINGS: There is a non-specific bowel gas pattern. Normal visualized soft tissue structures. Normal bilateral iliac wings, sacroiliac joints and visualized sacrum. Normal visualized bilateral superior and inferior pubic rami. Normal pubic symphysis. Normal ischial tuberosities. Normal visualized right femoral head. Normal right acetabulum. Normal right hip joint. Normal visualized left femoral head. Normal left acetabulum. Normal left hip joint. RAD/Pelvis 1 or 2 Views IMPRESSION: Normal x-ray examination of the pelvis. Electronically Signed: Valerio Knott MD at 15:35 EDT ,
[2024-06-15 15:43] LABS: Absolute Neutrophil Count 3.6 X10^3/uL (2.0-7.7); Basophil# 0.03 X10^3/uL; Basophil% 0.5 % (0-1); Eosinophil# 0.09 X10^3/uL; Eosinophils% 1.5 % (0-5); Hematocrit 37.4 % (37-47); Hemoglobin 12.9 g/dL (12.0-15.0); Lymphocyte % 23.8 % (19-41); Mean Corp Hgb Conc 34.5 g/dL (32-36); Mean Corpuscular Hgb 31.1 pg (27.0-32.0); Mean Corpuscular Volume 90.1 fL (81-99); Mean Platelet Vol. 8.9 fl (6.2-12.0); Monocyte# 0.76 X10^3/uL; Monocyte% 12.9 % (0-10); NRBC Flagged by Analyzer 0 % (0-5); Neutrophil # 3.55 X10^3/uL (2.7-7.7); Neutrophil % 60.3 % (47-70); Platelet Count 168 K/mm3 (150-450); RBC Distribution Width CV 13.3 % (11.6-14.6); RBC Distribution Width SD 44.2 fl (35.1-43.9); Red Blood Count 4.15 M/mm3 (4.2-5.4); White Blood Count 5.9 K/mm3 (4.4-11.0)
[2024-06-15 16:22] VITALS: BP 142/96; PULSE 81; RESP 16; O2SAT 96
--- NOTE | 2024-06-15 17:44 | CT_ITS ---
STUDY: CT BRAIN WITHOUT CONTRAST REASON FOR EXAM: Female, 53 years old. s/p fall and hit head RADIATION DOSAGE (If Supplied By Facility): CTDIvol = ( 44.99 ) mGy, DLP = ( 782.05 ) mGycm TECHNIQUE: Transaxial CT imaging of the brain was performed without administration of intravenous contrast material. Individualized dose optimization techniques were used for this CT. COMPARISON: No relevant priors. FINDINGS: Normal soft tissue structures. Normal calvarium. Normal size ventricles and extra-axial spaces for the patient''s age. Normal white matter tracts of the cerebral hemispheres. Normal basal ganglia and thalami. Normal brainstem. Normal cerebellum. There is no intracranial hemorrhage. There are no findings of an acute ischemic infarction. There is mucoperiosteal inflammatory disease of the paranasal sinuses consistent with moderate chronic sinusitis. CT/Brain/Head without Contrast IMPRESSION: Normal unenhanced CT scan of the brain. Electronically Signed: Tung Oscar MD at 18:06 EDT ,
[2024-06-15 17:51] LABS: ALB/GLOB Ratio 0.8 RATIO (0.9-2.4); AST(SGOT) 43 U/L (15-37); Alanine Aminotransfer ALT/SGPT 19 U/L (13-56); Albumin, Serum 3.4 g/dL (3.2-5.0); Alkaline Phosphatase 59 U/L (45-117); Anion Gap 9 (5-15); BUN 19 mg/dL (7-18); Calcium,Total 9.3 mg/dL (8.5-10.1); Chloride 89 mmol/L (98-107); Creatinine, Serum 0.79 mg/dL (0.55-1.02); EST Glomerular Filtration Rate 81 mL/min (>60); Est Glom Filt Rate - Afr Amer 98 mL/min (>60); Estimated Creatinine Clearance 88.06 ml/min; Globulin 4.1 g/dL (2.2-4.2); Glucose 73 mg/dL (74-106); Potassium 5.4 mmol/L (3.5-5.1); Protein, Total 7.5 g/dL (6.4-8.2); Sodium Level 122 mmol/L (136-145)
--- NOTE | 2024-06-15 17:58 | RAD_ITS ---
STUDY: X-RAY - LEFT KNEE REASON FOR EXAM: Female, 53 years old. FALLS TECHNIQUE: 2 view(s) of the knee. COMPARISON: None. FINDINGS: Normal visualized distal femur. Normal visualized proximal tibia and fibula. Normal proximal tibiofibular articulation. There is no demonstrated fracture. Normal medial femorotibial compartment. Normal lateral femorotibial compartment. Normal patellofemoral articulation. There is no demonstrated joint effusion. The soft tissue structures are unremarkable. RAD/Knee 1 or 2 Views IMPRESSION: Normal x-ray examination of the knee. Electronically Signed: Tung Oscar MD at 19:01 EDT ,
--- NOTE | 2024-06-15 17:58 | RAD_ITS ---
STUDY: X-RAY - RIGHT KNEE REASON FOR EXAM: Female, 53 years old. Falls w/ significant pain to both knees TECHNIQUE: 2 view(s) of the knee. COMPARISON: None. FINDINGS: Normal visualized distal femur. Normal visualized proximal tibia and fibula. Normal proximal tibiofibular articulation. There is no demonstrated fracture. Normal medial femorotibial compartment. Normal lateral femorotibial compartment. Normal patellofemoral articulation. There is no demonstrated joint effusion. The soft tissue structures are unremarkable. RAD/Knee 1 or 2 Views IMPRESSION: Normal x-ray examination of the knee. Electronically Signed: Tung Oscar MD at 19:01 EDT ,
[2024-06-15 18:00] VITALS: BP 146/90; PULSE 85; RESP 16; O2SAT 98
--- NOTE | 2024-06-15 18:04 | EKG12_ITS ---
Test Reason : DYSRHYTHMIA Blood Pressure : / mmHG Vent. Rate : 087 BPM Atrial Rate : 087 BPM P-R Int : 156 ms QRS Dur : 076 ms QT Int : 350 ms P-R-T Axes : 051 -02 020 degrees QTc Int : 421 ms Normal sinus rhythm Normal ECG Confirmed by Bubba Naranjo ([id number]), sound editor SUSY NICHOLE ([id number]) on 06/16/2024 2:06:04 PM Referred By: Jalil Ford Confirmed By:Bubba Naranjo
--- NOTE | 2024-06-15 18:49 | PCM.HP.STD ---
HPI - General General Date of Admission: 06/15/24 Date of Service: 06/15/24 Chief Complaint: Frequent falls HPI Narrative NICOLE LUGO, is a 53y/o F with history of schizophrenia, chronic back pain, overactive bladder who presented to [facility] ED 06/15/2024 with multiple falls. She had pelvis x-ray in the ED which was normal but given patient still unsteady and with multiple falls hospitalist contacted for admission. Patient evaluated at bedside reports she has had back pain chronically but has had some worsened pain and unsteadiness since a fall 9 months ago. Was seen here last week due to some increased back pain and prescribed Flexeril and naproxen, with over the past 2 days she has been feeling very unsteady and will lose balance and fall. Denies lightheadedness or dizziness but just a general feeling of weakness and being unsteady. At this time she has some bilateral knee pain but has no other new or acute complaints. Notes she is supposed to follow-up with a [facility] For sleep study results as she has been worked up for narcolepsy. No other new or acute complaints. [facility] Medical History Post-menopausal Wears glasses Schizophrenia Depression Anxiety Arthritis Bladder disease Back pain Heartburn Non-smoker Hx of allergy Hx of sepsis History of echocardiogram Home Medications ?Medication ?Instructions ?Recorded ?Last Taken ?Type albuterol sulfate 90 mcg/actuation 2 puff inhalation Q6H PRN PRN Sob 10/11/19 10/11/19 History aerosol inhaler &/Or Wheezing benztropine 1 mg tablet 0.5 mg PO BID schziphrenia 10/11/19 10/11/19 History benztropine 1 mg tablet 1 mg PO QHS schizophrenia 10/11/19 06/20/22 07:00 History cholecalciferol (vitamin D3) 125 5,000 unit PO DAILY supplement 10/11/19 10/11/19 History mcg (5,000 unit) capsule divalproex 500 mg tablet,delayed 500 mg PO TID schizophrenia 10/11/19 06/20/22 07:00 History release haloperidol 5 mg tablet 5 mg PO TID schizophrenia 10/11/19 06/20/22 07:00 History meloxicam 15 mg tablet 15 mg PO DAILY@1600 L knee pain 10/11/19 10/10/19 History omega-3 fatty acids-fish oil 340 2,000 mg PO DAILY supplement 10/11/19 10/10/19 History mg-1,000 mg capsule sertraline 100 mg tablet 100 mg PO BID depression 10/11/19 06/20/22 07:00 History buspirone 5 mg tablet 5 mg PO BID PRN Anxiety 06/13/22 Unknown History fluticasone 100 mcg-salmeterol 50 1 inh inhalation BID 06/13/22 Unknown History mcg/dose blistr powdr for inhalation (Advair Diskus) loratadine 10 mg capsule 10 mg PO DAILY 06/13/22 Unknown History oxybutynin chloride 5 mg tablet 5 mg PO DAILY 06/13/22 Unknown History cyclobenzaprine 10 mg tablet 10 mg PO TID PRN Muscle Spasm #20 06/09/24 Unknown Rx TABLETS naproxen 500 mg tablet (Naprosyn) 500 mg PO BID PRN pain #20 tabs 06/09/24 Unknown Rx montelukast 10 mg tablet 10 mg PO DAILY 06/15/24 Unknown History Allergy/AdvReac Type Severity Reaction Status Date / Time cat dander Allergy Shortness Verified 06/20/22 08:41 of breath dog dander Allergy Shortness Verified 06/20/22 08:41 of breath Penicillins (PCN) Allergy Unknown Verified 06/20/22 08:41 trifluoperazine (From Allergy Unknown Verified 06/20/22 08:41 Stelazine) Surgical History Hx of oral surgery Hx of colonoscopy Hx of wisdom tooth extraction Social History (Updated 06/15/24 @ 14:[address] Jalil Ford MD) household members: family Smoking Status: Never smoker ROS ROS Narrative General: Denies fever/chills HENT: Denies headache, some chronic sinus problems, denies sore throat EYES: Denies changes in vision Resp: Denies cough, denies shortness of breath Cardiac: Denies chest pain GI: Denies abdominal pain, denies changes in bowel, denies nausea/vomiting : Denies changes in urination Extremity: Skinned knees and various bruising MSK:Generalized weakness Neuro: Denies any numbness/tingling Heme: various bruises, no active bleeding Skin: Skinned knees, bruising on nose and bump on left side of head Psychiatric: No complaints voiced Vital Signs Vital Signs Vital Signs: 06/15/24 14:23 06/15/24 14:29 06/15/24 16:22 Temperature 97.7 F L Temperature Source Tympanic Pulse Rate 83 81 Respiratory Rate 16 16 Respiratory Effort Normal Respiratory Depth Normal Respiratory Pattern Normal Blood Pressure 128/85 H 142/96 H Blood Pressure Mean 99 111 Pulse Ox 98 96 Oxygen Delivery Method Room Air Room Air Room Air 06/15/24 18:00 Temperature Temperature Source Pulse Rate 85 Respiratory Rate 16 Respiratory Effort Respiratory Depth Respiratory Pattern Blood Pressure 146/90 H Blood Pressure Mean 108 Pulse Ox 98 Oxygen Delivery Method Room Air Weight Weight: 81.9 kg Body Mass Index (BMI) 30.0 Physical Exam Narrative General: Alert, oriented, various bruising HEENT: bruising on nose Eyes: Anicteric, normal conjunctiva Neck: Supple Respiratory: Clear to auscultation bilaterally, normal respiratory effort Cardiovascular: Regular rate and rhythm GI: Soft, nontender, nondistended Extremities: No edema, scrape knees and some pain over kneecaps Musculoskeletal: Moving all extremities Neuro: No overt focal neurological deficits, extraocular movements intact with no sustained nystagmus, finger-nose bilaterally without difficulty Skin: Bruising on bridge of nose, knees Psych: Cooperative Results Lab / Micro Data 06/15/24 15:23 06/15/24 15:23 Labs: Laboratory Results - last 24 hr 06/15/24 15:00: Urine Color Yellow, Urine Clarity Sl. Cloudy, Urine pH 8.0, Ur Specific [place] 1.010, Urine Protein Negative, Urine Glucose (UA) Normal, Urine Ketones 5 H, Urine Occult Blood 10 H, Urine Nitrite Negative, Urine Bilirubin Negative, Urine Urobilinogen Normal, Ur Leukocyte Esterase 25 H, Urine RBC 0-5 SEEN, Urine WBC 0-5 SEEN, Ur Squamous Epith Cells 0-5 SEEN, Amorphous Sediment 1+, Urine Bacteria 2+, Urine Mucus 0 SEEN 06/15/24 15:23: WBC 5.9, RBC 4.15 L, Hgb 12.9, Hct 37.4, MCV 90.1, MCH 31.1, MCHC 34.5, RDW Std Deviation 44.2 H, RDW Coeff of Shanika 13.3, Plt Count 168, MPV 8.9, Immature Gran % (Auto) 1.000 H, Neut % (Auto) 60.3, Lymph % (Auto) 23.8, [place] % (Auto) 12.9 H, Eos % (Auto) 1.5, Baso % (Auto) 0.5, Absolute Neuts (auto) 3.6, Absolute Lymphs (auto) 1.40, Nucleated RBC % 0, Sodium 122 L, Potassium 5.4 H, Chloride 89 L, Carbon Dioxide 24.0, Anion Gap 9, BUN 19 H, Creatinine 0.79, Estim Creat Clear Calc 88.06, Est GFR (MDRD) Af Amer 98, Est GFR (MDRD) Non-Af 81, BUN/Creatinine Ratio 24.0 H, Glucose 73 L, Calcium 9.3, Total Bilirubin 0.40, AST 43 H, ALT 19, Alkaline Phosphatase 59, Total Protein 7.5, Albumin 3.4, Globulin 4.1, Albumin/Globulin Ratio 0.8 L Imaging Radiology Impression Pelvis X-Ray 06/15/24 15:25 IMPRESSION: Normal x-ray examination of the pelvis. Electronically Signed: Valerio Knott MD at 15:35 EDT , Brain CT 06/15/24 17:44 IMPRESSION: Normal unenhanced CT scan of the brain. Electronically Signed: Tung Oscar MD at 18:06 EDT , Assessment & Plan Assessment/Plan (1) Multiple falls: PLAN: Plan # Multiple falls and history of chronic back pain -Pelvis x-ray no acute process, bilateral knee x-rays no acute process -UA not suggestive of UTI and white blood cell count within normal limits -PT/OT -Hold Flexeril -Check Depakote level and ammonia -CT head no acute process -May be due to low sodium or medication effect given she was recently started on Flexeril and cannot rule out hyperammonemia # Hyponatremia of unclear chronicity -Sodium 122, chronically hyponatremic however last level 127 was 1 year ago with no levels available in between -Serum osmolality 262 -TSH within normal limits, urine studies ordered and pending to better characterize underlying cause -Out of patient's medication most likely culprit may be sertraline if it is deemed to be most likely SIADH, will hold temporarily while awaiting studies, may need to start back at lower dose or discuss alternatives if this seems to be the culprit -Trend BMPs -Patient mentating well and overall stable and given unclear chronicity of 122 do not feel patient needs 3% saline at this time especially given she has been chronically hyponatremic # Hyperkalemia -Gently hydrate -Kayexalate -Repeat BMP # Schizophrenia -On Depakote, haloperidol, Zoloft -Holding Zoloft temporarily as above -Continue home medications but check Depakote level and ammonia -Continue benztropine # Possible narcolepsy -Patient to follow-up with clinic for this, has an appointment on Thursday, discussed that it is possible she may not be able to make this appointment # Overactive bladder -Continue oxybutynin #DVT ppx: Lovenox subcu Jackie Adams MD Time spent in the patient's overall evaluation,decision-making process, review of diagnostic data, adjustment of management, discussion with other providers, nursing nursing and ancillary staff involved in patient's care documentation, 57 minutes Charges/Coding Visit Charges Inpatient E&M: 53660 Init Hosp L2
[2024-06-15 19:17] LABS: Osmolality, Serum 262 mOsm/KG (275-295)
[2024-06-15 19:37] VITALS: BP 140/94; PULSE 92; RESP 18; TEMP 36.6; O2SAT 93
[2024-06-15 20:00] VITALS: RESP 18; O2SAT 97
[2024-06-15 20:21] LABS: Osmolality, Urine 417 mOsm/KG
[2024-06-15 20:59] VITALS: BMI 27.9
[2024-06-15] MEDS: 0.9% Normal Saline (500mL Bag) 500 ML 50 ML IV (21:31)
[2024-06-15] MEDS: 0.9% Saline Lock 10 ML Syringe IV (21:32)
[2024-06-15 21:56] VITALS: BP 142/86; PULSE 78; RESP 16; TEMP 36.4; O2SAT 100
[2024-06-15 22:07] LABS: Anion Gap 9 (5-15); BUN 14 mg/dL (7-18); BUN/Creat Ratio 18.1 RATIO (10-20); Chloride 91 mmol/L (98-107); Creatinine, Serum 0.77 mg/dL (0.55-1.02); EST Glomerular Filtration Rate 83 mL/min (>60); Est Glom Filt Rate - Afr Amer 101 mL/min (>60); Estimated Creatinine Clearance 87.21 ml/min; Glucose 86 mg/dL (74-106); Sodium Level 129 mmol/L (136-145)
[2024-06-15] MEDS: Benztropine Mesylate 0.5 MG TABLET 1 MG PO (22:10)
[2024-06-15] MEDS: Haloperidol 5 MG Tablet PO (22:11)
[2024-06-15] MEDS: Divalproex Sodium 250 MG Tablet 500 MG PO (22:11)
[2024-06-15] MEDS: Acetaminophen 500 MG Tablet 1000 MG PO (22:12)
[2024-06-15 22:23] LABS: Valproic Acid (Depakene) Level 64 ug/mL (50-100)
[2024-06-16] VITALS (7 sets, daily range): BP systolic 104–113; BP diastolic 70–83; PULSE 70–89; RESP 16; TEMP 35.8–36.3; O2SAT 95–99; BMI 28.0
[2024-06-16 01:15] LABS: Anion Gap 7 (5-15); BUN 14 mg/dL (7-18); BUN/Creat Ratio 18.3 RATIO (10-20); Chloride 91 mmol/L (98-107); Creatinine, Serum 0.76 mg/dL (0.55-1.02); EST Glomerular Filtration Rate 84 mL/min (>60); Est Glom Filt Rate - Afr Amer 102 mL/min (>60); Estimated Creatinine Clearance 88.36 ml/min; Glucose 122 mg/dL (74-106); Potassium 3.9 mmol/L (3.5-5.1); Sodium Level 127 mmol/L (136-145)
[2024-06-16 04:53] LABS: Urea Nitrogen, Urine 209 mg/dL (NO RANGE EST.)
[2024-06-16 04:59] LABS: Absolute Lymphocyte Count 2.19 X10^3/uL (0.83-4.51); Absolute Neutrophil Count 2.7 X10^3/uL (2.0-7.7); Basophil# 0.02 X10^3/uL; Basophil% 0.3 % (0-1); Eosinophil# 0.12 X10^3/uL; Hematocrit 33.9 % (37-47); Lymphocyte # 2.19 X10^3/ul (0.83-4.51); Lymphocyte % 36.5 % (19-41); Mean Corp Hgb Conc 35.4 g/dL (32-36); Mean Corpuscular Volume 90.4 fL (81-99); Mean Platelet Vol. 8.8 fl (6.2-12.0); NRBC Flagged by Analyzer 0 % (0-5); Neutrophil # 2.72 X10^3/uL (2.7-7.7); Neutrophil % 45.4 % (47-70); Platelet Count 155 K/mm3 (150-450); RBC Distribution Width CV 13.2 % (11.6-14.6); RBC Distribution Width SD 43.8 fl (35.1-43.9); Red Blood Count 3.75 M/mm3 (4.2-5.4)
[2024-06-16 05:03] LABS: Urine Sodium 48 mmol/L (Not Establ.)
[2024-06-16 05:25] LABS: Vitamin B12 916 pg/mL (211-911)
[2024-06-16 05:26] LABS: ALB/GLOB Ratio 0.9 RATIO (0.9-2.4); AST(SGOT) 28 U/L (15-37); Alanine Aminotransfer ALT/SGPT 12 U/L (13-56); Albumin, Serum 3.2 g/dL (3.2-5.0); Alkaline Phosphatase 63 U/L (45-117); Anion Gap 7 (5-15); BUN 15 mg/dL (7-18); BUN/Creat Ratio 19.9 RATIO (10-20); Calcium,Total 8.7 mg/dL (8.5-10.1); Chloride 88 mmol/L (98-107); Creatinine, Serum 0.75 mg/dL (0.55-1.02); EST Glomerular Filtration Rate 86 mL/min (>60); Est Glom Filt Rate - Afr Amer 104 mL/min (>60); Estimated Creatinine Clearance 89.65 ml/min; Globulin 3.5 g/dL (2.2-4.2); Glucose 118 mg/dL (74-106); Magnesium 1.7 mg/dL (1.6-2.6); Potassium 3.8 mmol/L (3.5-5.1); Protein, Total 6.7 g/dL (6.4-8.2); Sodium Level 123 mmol/L (136-145)
[2024-06-16 06:11] LABS: Osmolality, Urine 181 mOsm/KG
[2024-06-16] MEDS: Acetaminophen 500 MG Tablet 1000 MG PO ×3 (06:15→21:42)
[2024-06-16] MEDS: Divalproex Sodium 250 MG Tablet 500 MG PO ×3 (06:16→21:43)
[2024-06-16] MEDS: Benztropine Mesylate 0.5 MG TABLET PO ×2 (06:16→13:45)
[2024-06-16] MEDS: Haloperidol 5 MG Tablet PO ×3 (06:17→21:43)
[2024-06-16 06:59] LABS: Urine Chloride 27 mmol/L (Not Establ.); Urine Potassium 4.3 mmol/L (Not Establ.)
[2024-06-16] MEDS: Albuterol 2.5 MG/3 ML VIAL.NEB. INHALATION ×3 (07:46→19:10)
[2024-06-16] MEDS: Budesonide Respules 0.5 MG/2 ML AMPUL.NEB. INHALATION ×2 (07:46→19:10)
[2024-06-16] MEDS: Enoxaparin 40 MG/0.4 ML Syringe SC (09:37)
[2024-06-16] MEDS: Tolterodine Tartrate 2 MG CAP.SA PO (09:37)
[2024-06-16] MEDS: Loratadine 10 MG Tablet PO (09:37)
--- NOTE | 2024-06-16 10:41 | CON.PCM.RE_ITS ---
Assessment & Plan Assessment/Plan (1) Acute hyponatremia: PLAN: Acute on chronic hyponatremia with urinary studies consistent with SIADH. I believe it is due to psychiatric medications. Suggest managing her with fluid restriction, no need to stop those medications unless unable to control sodium with decreasing free water intake. No need for hypertonic saline, as patient is asymptomatic. HPI Consult Data Date of Consult: 06/16/24 HPI Narrative Reason for Consultation: Hyponatremia HPI Narrative: NICOLE LUGO, is a 53 F who presents to [facility] emergency room with the chief complaints of falls. We have been consulted due to to persistent hyponatremia. According to her records, patient has been hyponatremic for at least 5 years, her baseline sodium between 125 and 130. She is well aware of her low sodium levels. She has got extensive psychiatric history and has been on SSRIs, haloperidol and valproic acid. Since admission her sodium varies between 123 and 127. Reports no seizures, no headaches. She also has a mildly elevated potassium with normal kidney function, she is on 2 nonsteroidals. Urine studies showed specific gravity 1010, urine osmolality 484, and urine sodium of 43. All of the above consistent with SIADH. She has no signs of fluid overload, has no history of thyroid disease, liver disease, kidney disease, or cardiac disease. She also admits to drinking a lot of fluid, as she is trying to flush her kidneys [facility] Medical History Post-menopausal Wears glasses Schizophrenia Depression Anxiety Arthritis Bladder disease Back pain Heartburn Non-smoker Hx of allergy Hx of sepsis History of echocardiogram Home Medications ?Medication ?Instructions ?Recorded ?Last Taken ?Type albuterol sulfate 90 mcg/actuation 2 puff inhalation Q6H PRN PRN Sob 10/11/19 10/11/19 History aerosol inhaler &/Or Wheezing benztropine 1 mg tablet 0.5 mg PO BID schziphrenia 10/11/19 10/11/19 History benztropine 1 mg tablet 1 mg PO QHS schizophrenia 10/11/19 06/20/22 07:00 History cholecalciferol (vitamin D3) 125 5,000 unit PO DAILY supplement 10/11/19 10/11/19 History mcg (5,000 unit) capsule divalproex 500 mg tablet,delayed 500 mg PO TID schizophrenia 10/11/19 06/20/22 07:00 History release haloperidol 5 mg tablet 5 mg PO TID schizophrenia 10/11/19 06/20/22 07:00 History meloxicam 15 mg tablet 15 mg PO DAILY@1600 L knee pain 10/11/19 10/10/19 History omega-3 fatty acids-fish oil 340 2,000 mg PO DAILY supplement 10/11/19 10/10/19 History mg-1,000 mg capsule sertraline 100 mg tablet 100 mg PO BID depression 10/11/19 06/20/22 07:00 History buspirone 5 mg tablet 5 mg PO BID PRN Anxiety 06/13/22 Unknown History fluticasone 100 mcg-salmeterol 50 1 inh inhalation BID 06/13/22 Unknown History mcg/dose blistr powdr for inhalation (Advair Diskus) loratadine 10 mg capsule 10 mg PO DAILY 06/13/22 Unknown History oxybutynin chloride 5 mg tablet 5 mg PO DAILY 06/13/22 Unknown History cyclobenzaprine 10 mg tablet 10 mg PO TID PRN Muscle Spasm #20 06/09/24 Unknown Rx TABLETS naproxen 500 mg tablet (Naprosyn) 500 mg PO BID PRN pain #20 tabs 06/09/24 Unknown Rx montelukast 10 mg tablet 10 mg PO DAILY 06/15/24 Unknown History Allergy/AdvReac Type Severity Reaction Status Date / Time cat dander Allergy Shortness Verified 06/20/22 08:41 of breath dog dander Allergy Shortness Verified 06/20/22 08:41 of breath Penicillins (PCN) Allergy Unknown Verified 06/20/22 08:41 trifluoperazine (From Allergy Unknown Verified 06/20/22 08:41 Stelazine) Surgical History Hx of oral surgery Hx of colonoscopy Hx of wisdom tooth extraction Social History household members: family Smoking Status: Never smoker ROS Constitutional Constitutional: Reports weakness Eyes Eyes: Denies blindness, blurry vision, change in vision, discongugate gaze, double vision, dry eyes or loss of vision ENT HEENT: Reports dry mouth Gastrointestinal Gastrointestinal: Denies abdominal pain, anorexia, diarrhea, dry heaves, hematemesis, hematochezia, melena, nausea, rectal bleeding, vomiting or weight changes Genitourinary Genitourinary: Denies change in urinary stream, difficulty urinating, dribbling, dysuria, flank pain, hematuria, nocturia, oliguria, post void dribbling, urinary frequency, urinary hesitancy, urinary incontinence or urinary urgency Musculoskeletal Musculoskeletal: Reports arthralgias and myalgias Integumentary Integumentary: Denies dry skin, erythema, jaundice, lesions, pruritus, rash or skin ulcer Neurologic Neurologic: Reports frequent falls Psychiatric Psychiatric: Reports depression Endocrine Endocrinology: Reports polydipsia Hematologic/Lymphatic Hematologic/Lymphatic: Denies anemia, easy bleeding or easy bruising Physical Exam Const alert, oriented x3, no apparent distress and average body habitus General Appearance: well developed Orientation / Consciousness: oriented to person, oriented to place and oriented to time HEENT normocephalic Head and Scalp: atraumatic Neck no lymphadenopathy Resp no use of accessory muscles and clear to auscultation bilaterally Cardio regular rate, no murmurs and no rub GI non-tender Auscultation: normoactive bowel sounds Palpation: soft Skin no rashes or lesions noted Wounds: wounds noted Neuro Sensorium / Orientation: awake and lethargic Motor Exam: tremor Type: Positive for resting Positive for bilateral upper extremity Psych cooperative Medical Records Data Attestation: I reviewed the patient's medical records Lab / Micro Data Attestation: I reviewed the patient's lab results. 06/16/24 04:45 06/16/24 04:45 Labs: Laboratory Results - last 24 hr 06/15/24 15:00: Urine Color Yellow, Urine Clarity Sl. Cloudy, Urine pH 8.0, Ur Specific [place] 1.010, Urine Protein Negative, Urine Glucose (UA) Normal, Urine Ketones 5 H, Urine Occult Blood 10 H, Urine Nitrite Negative, Urine Bilirubin Negative, Urine Urobilinogen Normal, Ur Leukocyte Esterase 25 H, Urine RBC 0-5 SEEN, Urine WBC 0-5 SEEN, Ur Squamous Epith Cells 0-5 SEEN, Amorphous Sediment 1+, Urine Bacteria 2+, Urine Mucus 0 SEEN, Urine Osmolality 417 06/15/24 15:23: WBC 5.9, RBC 4.15 L, Hgb 12.9, Hct 37.4, MCV 90.1, MCH 31.1, MCHC 34.5, RDW Std Deviation 44.2 H, RDW Coeff of Shanika 13.3, Plt Count 168, MPV 8.9, Immature Gran % (Auto) 1.000 H, Neut % (Auto) 60.3, Lymph % (Auto) 23.8, M m[place] % (Auto) 12.9 H, Eos % (Auto) 1.5, Baso % (Auto) 0.5, Absolute Neuts (auto) 3.6, Absolute Lymphs (auto) 1.40, Nucleated RBC % 0, Sodium 122 L, Potassium 5.4 H, Chloride 89 L, Carbon Dioxide 24.0, Anion Gap 9, BUN 19 H, Creatinine 0.79, Estim Creat Clear Calc 88.06, Est GFR (MDRD) Af Amer 98, Est GFR (MDRD) Non-Af 81, BUN/Creatinine Ratio 24.0 H, Glucose 73 L, Calcium 9.3, Total Bilirubin 0.40, AST 43 H, ALT 19, Alkaline Phosphatase 59, Total Protein 7.5, Albumin 3.4, Globulin 4.1, Albumin/Globulin Ratio 0.8 L, TSH 1.330 06/15/24 18:34: Serum Osmolality 262 L, Cortisol 6.60 06/15/24 21:13: Sodium 129 L, Potassium 4.0, Chloride 91 L, Carbon Dioxide 29.0, Anion Gap 9, BUN 14, Creatinine 0.77, Estim Creat Clear Calc 87.21, Est GFR (MDRD) Af Amer 101, Est GFR (MDRD) Non-Af 83, BUN/Creatinine Ratio 18.1, Glucose 86, Calcium 10.0, Ammonia 17.0, Valproic Acid 64 06/16/24 00:52: Sodium 127 L, Potassium 3.9, Chloride 91 L, Carbon Dioxide 29.0, Anion Gap 7, BUN 14, Creatinine 0.76, Estim Creat Clear Calc 88.36, Est GFR (MDRD) Af Amer 102, Est GFR (MDRD) Non-Af 84, BUN/Creatinine Ratio 18.3, Glucose 122 H, Calcium 9.0 06/16/24 03:14: Urine Osmolality 181, Ur Random Sodium 48, Urine Potassium 4.3, Urine Chloride 27, Urine Urea Nitrogen 209 06/16/24 04:45: WBC 6.0, RBC 3.75 L, Hgb 12.0, Hct 33.9 L, MCV 90.4, MCH 32.0, MCHC 35.4, RDW Std Deviation 43.8, RDW Coeff of Shanika 13.2, Plt Count 155, MPV 8.8, Immature Gran % (Auto) 0.800, Neut % (Auto) 45.4 L, Lymph % (Auto) 36.5, M mendel % (Auto) 15.0 H, Eos % (Auto) 2.0, Baso % (Auto) 0.3, Absolute Neuts (auto) 2.7, Absolute Lymphs (auto) 2.19, Nucleated RBC % 0, Sodium 123 L, Potassium 3.8, Chloride 88 L, Carbon Dioxide 28.0, Anion Gap 7, BUN 15, Creatinine 0.75, Estim Creat Clear Calc 89.65, Est GFR (MDRD) Af Amer 104, Est GFR (MDRD) Non-Af 86, BUN/Creatinine Ratio 19.9, Glucose 118 H, Calcium 8.7, Magnesium 1.7, Total Bilirubin 0.40, AST 28, ALT 12 L, Alkaline Phosphatase 63, Total Protein 6.7, Albumin 3.2, Globulin 3.5, Albumin/Globulin Ratio 0.9, Vitamin B12 916 H Imaging Radiology Impression Pelvis X-Ray 06/15/24 15:25 IMPRESSION: Normal x-ray examination of the pelvis. Electronically Signed: Valerio Knott MD at 15:35 EDT , Brain CT 06/15/24 17:44 IMPRESSION: Normal unenhanced CT scan of the brain. Electronically Signed: Tung Oscar MD at 18:06 EDT , Knee X-Ray 06/15/24 17:58 IMPRESSION: Normal x-ray examination of the knee. Electronically Signed: Tung Oscar MD at 19:01 EDT , Knee X-Ray 06/15/24 17:58
--- NOTE | 2024-06-16 14:09 | CHAPLAIN ---
Type of Pastoral Visit _x__ Initial Visit ___ Follow-up Visit ___ On-call Visit ___ General Patient Visit ___ Spiritual Assessment ___ Family Conference ___ Bereavement ___ Rapid Response ___ Code Blue ___ Other (describe below) Pastoral Care Referral From _x__ Patient ___ Family ___ Nurse ___ Physician ___ Dry Can Tender ___ Weatherization Technician ___ Other (describe below) Sacrament/Intervention _x__ Active listening ___ Anointing ___ Nondenominational ___ Bereavement ___ Communion ___ [place] exploration ___ ___ Life review _x__ Prayer ___ Reconciliation ___ Sacrament of Sick ___ Supportive presence ___ Wedding ___ Other (describe below) Pastoral Comments patient was welcoming and pleasant; pt asked for prayer support; pt rambles on on different topics and changes the subject a couple of times; pt loses focus at time, even in mid sentence; pt had dietary and respiratory stop in while conversation was happening in room; decided to end discussion after interruptions; patient did request prayer and that was completed
--- NOTE | 2024-06-16 14:30 | CASEMGMT ---
SW met with patient and her sister per their request. Both expressed concern with patient going home as she has been falling a lot lately. The squad has had to come and get patient up as her sister cannot. SW explained therapy will see patient while here at [facility]. SW will provide them with a list of facilities that take patient's insurance. They will need to pick 3 facilities they would be okay with and SW will take care of making referrals. SW explained a lot will depend on how patient does with therapy. Patient's insurance will have to approve before patient can be discharged to the facility. They also asked about Healthcare Power of Saw Grinder paperwork. SW let them know SW can complete those documents with patient. SW obtained a list of SNF's and gave it to patient and her sister. Their 3 choices would be 1. [facility] 2. [place] 3. [facility]. SW then assisted patient in completing Healthcare Power of Saw Grinder papers. Copies were made and given to patient along with original. A copy was also placed in patient's chart. Once therapy sees patient BRIDGETT will make a referral to [facility]. Angie ADAN
--- NOTE | 2024-06-16 14:35 | CASEMGMT ---
Discharge Planning A list of SNF providers including quality and resource use data and consistent with the patient's preferred geographic region, medical needs, and insurance network was created in [employer] Guide.? This list was provided to the SW. Melissa Richardson Discharge Planning Asst.
--- NOTE | 2024-06-16 15:30 | CASEMGMT ---
YUNIER BERMAN Assessment Face to Face with patient for initial transition planning/care coordination assessment. YUNIER BERMAN introduced self and role at [facility], pt voices understanding. Pt is A&Ox4 and is resting comfortably in bed and is calm. Pt sister at bedside. Care providers, pharmacy, and demographics verified. 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 Pt and pt sister states that the pt has been physically declining the past 2-3 weeks. Transportation: Pt does not drive. Pt sister drives. Denies concerns DME: CPAP with no additional oxygen. Cane, pt is unsure if she has a FWW at home or not. If the pt dc's home, pt prefers [employer] for a new walker. (A verbal list of local in network DME companies provided to the pt). Pt also reports that she has grab bars HHC/SNF: Denies Hx Pt?s goal: Return to PLOF Plan: TBD. Anticipate SNF vs HHC. Pt states that she would like to attend a SNF for further rehab to be able to help her return to PLOF. SW is aware and to follow for now. CM remains available for DC planning assistance. PT is pending. Abi Humphrey RN, CM
--- NOTE | 2024-06-16 18:21 | PN.HOSP_ITS ---
Reason for Visit Reason for Visit: Diagnoses Hypo-osmolality and hyponatremia (06/15/24) Repeated falls (06/15/24) Subjective Subjective Patient was seen and examined today, she appeared to be somnolent during the time of my visit, she stated that she did not get any rest. According to discharge planning, family wants the patient placed at least temporary in a skilled facility for rehab services. Objective Data Objective Data Vital Signs: Vital Signs Temp Pulse Resp BP Pulse Ox O2 Del Method 96.5 F L 86 16 112/74 99 Room Air 06/16/24 16:00 06/16/24 16:00 06/16/24 16:00 06/16/24 16:00 06/16/24 16:00 06/16/24 16:00 Oxygen Delivery Method Room Air Weight: 76.3 kg Body Mass Index (BMI) 28.0 Intake & Output: Intake and Output for Last 24 Hours 06/14/24 06/15/24 06/16/24 23:59 23:59 23:59 Intake Total 500 / 500 1500 / 1500 Output Total 600 / 600 Balance 500 / 500 900 / 900 Lab / Micro Data 06/16/24 04:45 06/16/24 04:45 Labs: Laboratory Results - last 24 hr 06/15/24 15:00: Urine Osmolality 417 06/15/24 15:23: TSH 1.330 06/15/24 18:34: Serum Osmolality 262 L, Cortisol 6.60 06/15/24 21:13: Sodium 129 L, Potassium 4.0, Chloride 91 L, Carbon Dioxide 29.0, Anion Gap 9, BUN 14, Creatinine 0.77, Estim Creat Clear Calc 87.21, Est GFR (MDRD) Af Amer 101, Est GFR (MDRD) Non-Af 83, BUN/Creatinine Ratio 18.1, Glucose 86, Calcium 10.0, Ammonia 17.0, Valproic Acid 64 06/16/24 00:52: Sodium 127 L, Potassium 3.9, Chloride 91 L, Carbon Dioxide 29.0, Anion Gap 7, BUN 14, Creatinine 0.76, Estim Creat Clear Calc 88.36, Est GFR (MDRD) Af Amer 102, Est GFR (MDRD) Non-Af 84, BUN/Creatinine Ratio 18.3, Glucose 122 H, Calcium 9.0 06/16/24 03:14: Urine Osmolality 181, Ur Random Sodium 48, Urine Potassium 4.3, Urine Chloride 27, Urine Urea Nitrogen 209 06/16/24 04:45: WBC 6.0, RBC 3.75 L, Hgb 12.0, Hct 33.9 L, MCV 90.4, MCH 32.0, MCHC 35.4, RDW Std Deviation 43.8, RDW Coeff of Shanika 13.2, Plt Count 155, MPV 8.8, Immature Gran % (Auto) 0.800, Neut % (Auto) 45.4 L, Lymph % (Auto) 36.5, M mendel % (Auto) 15.0 H, Eos % (Auto) 2.0, Baso % (Auto) 0.3, Absolute Neuts (auto) 2.7, Absolute Lymphs (auto) 2.19, Nucleated RBC % 0, Sodium 123 L, Potassium 3.8, Chloride 88 L, Carbon Dioxide 28.0, Anion Gap 7, BUN 15, Creatinine 0.75, Estim Creat Clear Calc 89.65, Est GFR (MDRD) Af Amer 104, Est GFR (MDRD) Non-Af 86, BUN/Creatinine Ratio 19.9, Glucose 118 H, Calcium 8.7, Magnesium 1.7, Total Bilirubin 0.40, AST 28, ALT 12 L, Alkaline Phosphatase 63, Total Protein 6.7, Albumin 3.2, Globulin 3.5, Albumin/Globulin Ratio 0.9, Vitamin B12 916 H Radiography Diagnostic Testing: Radiology Impression Knee X-Ray 06/15/24 17:58 IMPRESSION: Normal x-ray examination of the knee. Electronically Signed: Tung Oscar MD at 19:01 EDT , Knee X-Ray 06/15/24 17:58 IMPRESSION: Normal x-ray examination of the knee. Electronically Signed: Tung Oscar MD at 19:01 EDT , Physical Exam Const alert and no apparent distress Constitutional Narrative: Patient appears older than her stated age General Appearance: cooperative and well developed Orientation / Consciousness: awake, oriented to person and oriented to place HEENT normocephalic and moist oral mucous membranes Eyes PERRL, EOMs intact bilaterally and conjunctivae normal Neck supple, no JVD and thyroid normal General: trachea midline Resp normal respiratory effort, no retractions, no use of accessory muscles and clear to auscultation bilaterally Auscultation: Negative for rales, rhonchi or wheezes Cardio regular rate, regular rhythm, S1 normal heart sound, S2 normal heart sound, no murmurs, no rub and no gallops GI normal to inspection, nondistended, normoactive bowel sounds, soft to palpation, non-tender and non-distended Extremity no clubbing, cyanosis or edema Skin no rashes or lesions noted General Skin Exam: no breakdown Neuro oriented x3, CN's II-XII intact bilaterally, no focal motor deficits and no sensory deficits noted Sensorium / Orientation: awake and alert Speech: speech normal Psych affect normal Assessment & Plan Assessment/Plan (1) Multiple falls: PLAN: Plan 1. Acute debility-patient will be seen by PT and OT, it appears that the patient's family would like the patient to go to a skilled facility for short- term rehab services. This may not happen till next week. #2 hyponatremia-I had nephrology see the patient today for consultation, they recommended fluid restriction and monitoring of BMP. #3 schizophrenia-patient will remain on her current medications #4 chronic depression-patient will remain on her current medication Total clinical time spent by myself addressing the patient's medical issues, reviewing her data, and collaborating with patient's care team: 35 minutes Charges/Coding Visit Charges Inpatient E&M: 07909 Subs Hosp L2
[2024-06-16] MEDS: Benztropine Mesylate 0.5 MG TABLET 1 MG PO (21:42)
[2024-06-17 03:40] VITALS: BP 112/70; PULSE 78; RESP 16; TEMP 36.3; O2SAT 100
[2024-06-17 03:43] VITALS: BMI 22.1
[2024-06-17] MEDS: Benztropine Mesylate 0.5 MG TABLET PO ×2 (05:52→14:02)
[2024-06-17] MEDS: Acetaminophen 500 MG Tablet 1000 MG PO ×2 (05:52→14:02)
[2024-06-17] MEDS: Divalproex Sodium 250 MG Tablet 500 MG PO ×2 (05:52→14:02)
[2024-06-17] MEDS: Haloperidol 5 MG Tablet PO ×2 (05:53→14:02)
[2024-06-17 07:30] VITALS: PULSE 85; RESP 20
[2024-06-17] MEDS: Budesonide Respules 0.5 MG/2 ML AMPUL.NEB. INHALATION (07:30)
[2024-06-17] MEDS: Albuterol 2.5 MG/3 ML VIAL.NEB. INHALATION ×2 (07:31→13:30)
[2024-06-17 09:15] VITALS: BP 132/89; PULSE 87; RESP 18; TEMP 36.4; O2SAT 98
[2024-06-17] MEDS: Tolterodine Tartrate 2 MG CAP.SA PO (09:15)
[2024-06-17] MEDS: Loratadine 10 MG Tablet PO (09:15)
[2024-06-17] MEDS: Enoxaparin 40 MG/0.4 ML Syringe SC (09:15)
--- NOTE | 2024-06-17 09:43 | PCM.PN.REN ---
Subjective Subjective Sitting up in bed, no overnight events. Denies any complaints. Denies any N/V/D, or headache. Objective Data Objective Data Vital Signs: Vital Signs Temp Pulse Resp BP Pulse Ox O2 Del Method 97.5 F L 87 18 132/89 H 98 Room Air 06/17/24 09:15 06/17/24 09:15 06/17/24 09:15 06/17/24 09:15 06/17/24 09:15 06/17/24 09:15 Oxygen Delivery Method Room Air Weight: 60.3 kg Body Mass Index (BMI) 22.1 Intake & Output: Intake and Output for Last 24 Hours 06/15/24 06/16/24 06/17/24 23:59 23:59 23:59 Intake Total 500 / 500 2400 / 2400 320 / 320 Output Total 1000 / 1000 1400 / 1400 Balance 500 / 500 1400 / 1400 -1080 / -1080 Lab / Micro Data 06/16/24 04:45 06/16/24 04:45 Physical Exam Narrative Alert and oriented x 3, no apparent distress S1, S2, RRR Lungs sound clear Abdomen soft, nontender No edema Assessment & Plan Assessment/Plan (1) Acute hyponatremia: PLAN: Acute on chronic hyponatremia with urinary studies consistent with SIADH, likely due to psychiatric medications. Urine osmolality 181, urine sodium 48, Serum Osmo 262. TSH and cortisol normal. Evidence of hyponatremia since at least 2019. Patient does have fluctuating serum sodium levels, possible baseline sodium ranging around 127-130. Suggest managing her with fluid restriction, no need to stop those medications unless unable to control sodium with decreasing free water intake. No need for hypertonic saline, as patient is asymptomatic. No need for frequent serum sodium lab draws. Labs pending for today. Lengthy discussion with patient today importance of restricting her fluid to around 1.2 to 1.5 L total fluid per day as well as increasing solute intake.
[2024-06-17 10:41] LABS: Anion Gap 11 (5-15); BUN 18 mg/dL (7-18); BUN/Creat Ratio 23.2 RATIO (10-20); Chloride 92 mmol/L (98-107); Creatinine, Serum 0.78 mg/dL (0.55-1.02); EST Glomerular Filtration Rate 83 mL/min (>60); Est Glom Filt Rate - Afr Amer 100 mL/min (>60); Estimated Creatinine Clearance 75.92 ml/min; Glucose 97 mg/dL (74-106); Potassium 4.4 mmol/L (3.5-5.1); Sodium Level 126 mmol/L (136-145)
[2024-06-17 13:30] VITALS: PULSE 82; RESP 20
--- NOTE | 2024-06-17 13:52 | CASEMGMT ---
Patient was accepted by [facility] and pre-cert has been started. BRIDGETT notified patient. BRIDGETT explained to patient that she will be at [facility] until her insurance gives an answer. Patient verbalized understanding and thanked BRIDGETT. BRIDGETT also called patient's sister and notified her of above. Plan: d/c to [facility] pending insurance approval. Angie ADAN
[2024-06-17 15:15] VITALS: BP 94/62; PULSE 85; RESP 18; TEMP 36.4; O2SAT 100
--- NOTE | 2024-06-17 15:41 | TREXTCAR_ITS ---
Diet Diet Order/Speech Therapy: 06/15/24 20:58 Diet: Regular - General Food consistency:: Regular Liquid Consistency:: Regular/Thin Diet Comments: Fluid restriction 1200 cc/24 h Routine Orders/Code Status Routine Lab Work: BMP (in 3 days) Code Status: Full Code Wound(s) left knee: Wound Type: scrape Therapies Weight Bearing: Full weight bearing Physical Therapy: Eval and Treat Occupational Therapy: Eval and Treat Problem/Diagnosis (1) Acute hyponatremia: Status: Acute Code(s): E87.1 - Hypo-osmolality and hyponatremia Plan 1. Acute debility-patient will be seen by PT and OT, it appears that the patient's family would like the patient to go to a skilled facility for short- term rehab services. This may not happen till next week. #2 hyponatremia-I had nephrology see the patient today for consultation, they recommended fluid restriction and monitoring of BMP. #3 schizophrenia-patient will remain on her current medications #4 chronic depression-patient will remain on her current medication Total clinical time spent by myself addressing the patient's medical issues, reviewing her data, and collaborating with patient's care team: 35 minutes Allergies/Procedures Done in Hospital Allergies cat dander Allergy (Verified 06/20/22 08:41) Shortness of breath dog dander Allergy (Verified 06/20/22 08:41) Shortness of breath Penicillins (PCN) Allergy (Verified 06/20/22 08:41) Unknown trifluoperazine (From Stelazine) Allergy (Verified 06/20/22 08:41) Unknown Procedures: None Type of Care/Length of Stay Estimated LOS: Convalescent Care Less Than 30 days Type of Care Needed: Skilled Rehab Potential: Good Prognosis: Good Additional Orders/Day of Discharge H&P will serve as current which was dated: 06/15/24 Day of Discharge: 06/17/24 Dietary and Speech Recommendations Dietitian Recommendations/Changes: Continue regular diet. If PO intake declines, will order ONS. Will provide nutrition education, if pt request. Will monitor weight. Reviewed and approved by Mey Majano RD, LD. Discharge Plan Admission Admit Date/Time: 06/15/24 18:49 Primary Reason for Your Visit: debility Attending Provider: Julian Fernández Primary Care Provider: Gerald Edwards Consulting Providers: Jackie Adams; Sruthi Barrera Discharge Orders/Prescriptions Prescriptions: New budesonide 0.5 mg/2 mL Suspension For Nebulization 0.5 mg inhalation Q12H.RT Qty: 0 0RF melatonin 3 mg Tablet 3 mg PO QHS PRN PRN (Reason: Insomnia) Qty: 0 0RF ibuprofen 600 mg Tablet 600 mg PO Q6H PRN PRN (Reason: Pain Score 1-10) Qty: 0 0RF tolterodine 2 mg Capsule,Extended Release 24hr 2 mg PO DAILY Qty: 0 0RF albuterol sulfate 5 mg/mL solution for nebulization 2.5 mg inhalation Q6H PRN (Reason: shortness of breath or wheezing) Qty: 15 0RF Continued haloperidol 5 mg tablet 5 mg PO TID Patient Comments: Take 1 tablet by mouth three times a day sertraline 100 mg tablet 100 mg PO BID Patient Comments: Take 2 tablet by mouth once a day divalproex 500 mg tablet,delayed release (DR/EC) 500 mg PO TID Patient Comments: Take 1 tablet by mouth three times a day benztropine 1 MG tablet 0.5 mg PO BID benztropine 1 MG tablet 1 mg PO QHS cholecalciferol (vitamin D3) 5,000 UNIT capsule 5,000 unit PO DAILY buspirone 5 mg Tablet 5 mg PO BID PRN (Reason: Anxiety) loratadine 10 mg Capsule 10 mg PO DAILY Discontinued meloxicam 15 MG tablet 15 mg PO DAILY@1600 Patient Comments: TAKE 1 TABLET BY MOUTH ONCE DAILY WITH FOOD albuterol sulfate 1 PUFF inhaler 2 puff inhalation Q6H PRN PRN (Reason: Sob &/Or Wheezing) Patient Comments: INHALE 2 PUFFS BY MOUTH EVERY 6 HOURS NEEDED FOR WHEEZING OR SHORTNESS OF BREATH omega-3 fatty acids-fish oil 1 EACH capsule 2,000 mg PO DAILY oxybutynin chloride 5 mg Tablet 5 mg PO DAILY fluticasone propion-salmeterol [Advair Diskus] 100-50 mcg/dose Blister With Device 1 inh INHALATION BID montelukast 10 mg tablet 10 mg PO DAILY naproxen [Naprosyn] 500 mg tablet 500 mg PO BID PRN (Reason: pain) Qty: 20 0RF cyclobenzaprine 10 mg tablet 10 mg PO TID PRN (Reason: Muscle Spasm) Qty: 20 0RF Referrals / Follow Up: Gerald Edwards DO [Primary Care Provider] - Disposition Disposition (needs filled in before D/C Order can be placed): [facility] Facility
--- NOTE | 2024-06-17 15:42 | CASEMGMT ---
Patient was approved by insurance to go to [facility]. SW notified physician. Physician will send patient today. SW notified patient and her sister. Patient's sister asked that someone notify her when patient is in route to TCU. BRIDGETT asked patient's RN if she could do this as SW will likely be gone for the day. Plan: d/c to [facility] under skilled level of care. Angie ADAN
--- NOTE | 2024-06-17 15:55 | DS.PCM_ITS ---
Providers Date of Admission: 06/15/24 Date of Discharge: 06/17/24 Primary Care Physician: Dr. Gerald Edwards, Consultations 06/16/24 07:39 Consult: Nephrology Routine Consulting Provider: Sruthi Barrera Reason for Consult: hyponatremia EMERGENT Consult: No MD Notified: Yes Date Notified: 06/16/24 Time Notified: 07:40 Method of Notification: Verbal Reason For Visit: FALLS HYPONATREMIA HYPERKALEMIA Diagnosis Discharge Diagnosis (1) Acute hyponatremia: Status: Acute Code(s): E87.1 - Hypo-osmolality and hyponatremia Plan 1. Acute debility-patient will be seen by PT and OT, it appears that the patient's family would like the patient to go to a skilled facility for short- term rehab services. This may not happen till next week. #2 hyponatremia-I had nephrology see the patient today for consultation, they recommended fluid restriction and monitoring of BMP. #3 schizophrenia-patient will remain on her current medications #4 chronic depression-patient will remain on her current medication Total clinical time spent by myself addressing the patient's medical issues, reviewing her data, and collaborating with patient's care team: 35 minutes Medications at Discharge Home Medications benztropine 1 mg tablet 0.5 mg PO BID schziphrenia 10/11/19 benztropine 1 mg tablet 1 mg PO QHS schizophrenia 10/11/19 cholecalciferol (vitamin D3) 125 mcg (5,000 unit) capsule 5,000 unit PO DAILY supplement 10/11/19 divalproex 500 mg tablet,delayed release 500 mg PO TID schizophrenia 10/11/19 haloperidol 5 mg tablet 5 mg PO TID schizophrenia 10/11/19 sertraline 100 mg tablet 100 mg PO BID depression 10/11/19 buspirone 5 mg tablet 5 mg PO BID PRN Anxiety 06/13/22 loratadine 10 mg capsule 10 mg PO DAILY allergy 06/13/22 albuterol sulfate 5 mg/mL(0.5 %) solution for nebulization 2.5 mg (0.5 mL) inhalation Q6H PRN shortness of breath or wheezing #15 mL 06/17/24 budesonide 0.5 mg/2 mL suspension for nebulization 0.5 mg (2 mL) inhalation Q12H.RT lungs #0 mL 06/17/24 ibuprofen 600 mg tablet 600 mg PO Q6H PRN PRN Pain Score 1-10 #0 tabs 06/17/24 melatonin 3 mg tablet 3 mg PO QHS PRN PRN Insomnia #0 tabs 06/17/24 tolterodine 2 mg capsule,extended release 24 hr 2 mg PO DAILY overactive bladder #0 caps 06/17/24 Hospital Course Operations None Procedures None Summary of Care Provided Minutes Spent on Discharge: 31 Hospital Course: This 53-year-old white female was seen in the emergency room at [facility] after being brought in by family members due to frequent falls. Patient has a history of schizophrenia and hyponatremia, workup in the ER included labs which showed the patient to be hyponatremic-this appears to be a chronic condition for the patient however. Patient was admitted to PCU, she was seen by PT and OT, it was recommended that she go into a residential facility for short-term rehab services and the patient agreed. On 06/17/2024, patient was seen and examined: On examination she appeared in good health and spirits, she does not appear to be in any distress. Vital signs as documented. Skin warm and dry and without overt rashes. Neck without JVD, thyroid appears normal, trachea is midline, neck is supple. Lungs clear, normal air movement was noted. Heart exam notable for regular rhythm, normal sounds and absence of murmurs, rubs or gallops. Abdomen unremarkable and without evidence of organomegaly, masses, or abdominal aortic enlargement, bowel sounds are present in all 4 quadrants, no abdominal tenderness was noted. Extremities nonedematous, no cyanosis was noted, no clubbing was noted. Neuro: Cranial nerves II through XII are grossly intact, no focal motor deficits were noted, sensation to light touch and pinprick is intact, motor exam 5/5 throughout. Psych: Patient is alert and oriented x3, she does not appear anxious or depressed, she does not appear agitated. Patient appears stable for discharge to TCU for further care on 06/17/2024. Weight / BMI Weight Weight: 60.3 kg Body Mass Index (BMI) 22.1 ABG / Lab / Microbiology Data 06/16/24 04:45 06/17/24 10:04 Laboratory: Laboratory Results - last 24 hr 06/17/24 10:04: Sodium 126 L, Potassium 4.4, Chloride 92 L, Carbon Dioxide 23.0, Anion Gap 11, BUN 18, Creatinine 0.78, Estim Creat Clear Calc 75.92, Est GFR (MDRD) Af Amer 100, Est GFR (MDRD) Non-Af 83, BUN/Creatinine Ratio 23.2 H, Glucose 97, Calcium 9.0 Microbiology: Microbiology 06/15/24 15:00 Urine, Clean Catch Urine Culture - Final Culture exhibits no growth. Meaningful Use Info Meaningful Use Meaningful Use Diagnoses (Choose all that apply): None applicable Ischemic Stroke Statin Dosing Therapy Reference: STATIN DOSE THERAPY REFERENCE: * Patients > 75 years receive moderate or high dose statin therapy. * Patients 75 years or YOUNGER should receive HIGH intensity statin dose unless contraindicated. You will be required to document reason for non-treatment if statin daily dose does not meet guidelines. HIGH DOSE STATIN THERAPY DAILY Atorvastatin > than or = to 40 mg Rosuvastatin > than or = to 20 mg Amlodipine + Atorvastatin > than or = to 2.5/40 mg Ezetimibe + Simvastatin 10/80 mg Simvastatin 80mg Discharge Plan Admission Admit Date/Time: 06/15/24 18:49 Primary Reason for Your Visit: debility Attending Provider: Julian Fernández Primary Care Provider: Gerald Edwards Consulting Providers: Jackie Adams; Sruthi Barrera Discharge Orders/Prescriptions Prescriptions: New budesonide 0.5 mg/2 mL Suspension For Nebulization 0.5 mg inhalation Q12H.RT Qty: 0 0RF melatonin 3 mg Tablet 3 mg PO QHS PRN PRN (Reason: Insomnia) Qty: 0 0RF ibuprofen 600 mg Tablet 600 mg PO Q6H PRN PRN (Reason: Pain Score 1-10) Qty: 0 0RF tolterodine 2 mg Capsule,Extended Release 24hr 2 mg PO DAILY Qty: 0 0RF albuterol sulfate 5 mg/mL solution for nebulization 2.5 mg inhalation Q6H PRN (Reason: shortness of breath or wheezing) Qty: 15 0RF Continued haloperidol 5 mg tablet 5 mg PO TID Patient Comments: Take 1 tablet by mouth three times a day sertraline 100 mg tablet 100 mg PO BID Patient Comments: Take 2 tablet by mouth once a day divalproex 500 mg tablet,delayed release (DR/EC) 500 mg PO TID Patient Comments: Take 1 tablet by mouth three times a day benztropine 1 MG tablet 0.5 mg PO BID benztropine 1 MG tablet 1 mg PO QHS cholecalciferol (vitamin D3) 5,000 UNIT capsule 5,000 unit PO DAILY buspirone 5 mg Tablet 5 mg PO BID PRN (Reason: Anxiety) loratadine 10 mg Capsule 10 mg PO DAILY Discontinued meloxicam 15 MG tablet 15 mg PO DAILY@1600 Patient Comments: TAKE 1 TABLET BY MOUTH ONCE DAILY WITH FOOD albuterol sulfate 1 PUFF inhaler 2 puff inhalation Q6H PRN PRN (Reason: Sob &/Or Wheezing) Patient Comments: INHALE 2 PUFFS BY MOUTH EVERY 6 HOURS NEEDED FOR WHEEZING OR SHORTNESS OF BREATH omega-3 fatty acids-fish oil 1 EACH capsule 2,000 mg PO DAILY oxybutynin chloride 5 mg Tablet 5 mg PO DAILY fluticasone propion-salmeterol [Advair Diskus] 100-50 mcg/dose Blister With Device 1 inh INHALATION BID montelukast 10 mg tablet 10 mg PO DAILY naproxen [Naprosyn] 500 mg tablet 500 mg PO BID PRN (Reason: pain) Qty: 20 0RF cyclobenzaprine 10 mg tablet 10 mg PO TID PRN (Reason: Muscle Spasm) Qty: 20 0RF Referrals / Follow Up: Gerald Edwards DO [Primary Care Provider] - Disposition Disposition (needs filled in before D/C Order can be placed): Intermediate Facility Charges/Coding Visit Charges Inpatient E&M: 90208 Disch Hosp >30min
--- NOTE | 2024-06-17 16:58 | NURSING ---
called report to [facility] FAYE on TCU
== END 2024-06-17 17:27 | disposition skilled nursing facility (03) | DRG 645 ==
LOC: ED 18:15 → PCU 20:07
PROVIDERS: Nurse Practitioner Adult Health; Admitting Provider Internal Medicine; Emergency Provider Emergency Medicine; PCP Student in an Organized Health Care Education/Training Program; Referring Provider Emergency Medicine; Visit Provider Internal Medicine
DX: E22.2 Syndrome of inappropriate secretion of antidiuretic hormone (principal); E87.5 Hyperkalemia; S01.21XA Laceration without foreign body of nose, initial encounter; S30.0XXA Contusion of lower back and pelvis, initial encounter; F20.9 Schizophrenia, unspecified; F32.A Depression, unspecified; G47.419 Narcolepsy without cataplexy; S80.12XA Contusion of left lower leg, initial encounter; S70.11XA Contusion of right thigh, initial encounter; S70.12XA Contusion of left thigh, initial encounter; S80.01XA Contusion of right knee, initial encounter; S80.02XA Contusion of left knee, initial encounter; S90.02XA Contusion of left ankle, initial encounter; W18.30XA Fall on same level, unspecified, initial encounter; M54.9 Dorsalgia, unspecified; T43.225A Adverse effect of selective serotonin reuptake inhibitors, initial encounter; G89.29 Other chronic pain; N32.81 Overactive bladder; H91.90 Unspecified hearing loss, unspecified ear; R03.0 Elevated blood-pressure reading, without diagnosis of hypertension; R29.6 Repeated falls; R82.71 Bacteriuria; R26.81 Unsteadiness on feet; R53.81 Other malaise; Z79.899 Other long term (current) drug therapy
CPT/HCPCS: 36415; 70450; 72170; 73560; 80048; 80053; 80164; 81001; 82140; 82436; 82533; 82607; 83735; 83930; 83935; 84133; 84300; 84443; 84540; 85025; 87086; 93005; 94640; 97162; 97166; 97802; 99285; J7040; A4216

== ENCOUNTER 2024-06-17 17:55 | Inpatient (IN) | payer MEDICARE, SELFPAY ==
[2024-06-17 18:03] VITALS: BP 110/70; PULSE 88; RESP 16; TEMP 35.9; O2SAT 95; BMI 21.9
--- NOTE | 2024-06-17 19:01 | PCM.HP.STD ---
HPI - General General Date of Admission: 06/17/24 Date of Service: 06/17/24 Chief Complaint: Here for rehabilitation. HPI Narrative 06/15/2024 NICOLE LUGO, is a 53 Female who presents to [facility] ED with fall. Multiple falls. X-ray pelvis negative, Cervical spine cleared by criteria. CT head negative. UA negative for infection, Sodium 122, K 5.4. Laceration nose, left leg contusion, abrasions. 06/15/2024 Admit [facility]. PT/OT for weakness/falls. Hold Sertraline, evaluate for hyponatremia. Gentle IV fluids, Kayexalate for hyperkalemia. 06/16/2024 Nephrology recommended fluid restriction for SIADH causing hyponatremia. No need to hold custodial SSRI's. 06/16/2024 Somnolent, family requested SNF at discharge. PT/OT SNF. 06/17/2024 Continue 1.2 to 1.5 liter fluid restriction for hyponatremia. 06/17/2024 Admit to TCU with debility, here for rehabilitation, strengthening, prior to discharge home with sister. Resident states she is undergoing evaluation for narcolepsy, which maybe contributing to her falls. [facility] Medical History (Updated 06/17/24 @ 19:[address] Dennis Javier MD) Post-menopausal Wears glasses Schizophrenia Depression Anxiety Arthritis Bladder disease Back pain Heartburn Non-smoker Hx of allergy Hx of sepsis History of echocardiogram Home Medications ?Medication ?Instructions ?Recorded ?Last Taken ?Type benztropine 1 mg tablet 0.5 mg PO BID schziphrenia 10/11/19 10/11/19 History benztropine 1 mg tablet 1 mg PO QHS schizophrenia 10/11/19 06/20/22 07:00 History cholecalciferol (vitamin D3) 125 5,000 unit PO DAILY supplement 10/11/19 10/11/19 History mcg (5,000 unit) capsule divalproex 500 mg tablet,delayed 500 mg PO TID schizophrenia 10/11/19 06/20/22 07:00 History release haloperidol 5 mg tablet 5 mg PO TID schizophrenia 10/11/19 06/20/22 07:00 History sertraline 100 mg tablet 100 mg PO BID depression 10/11/19 06/20/22 07:00 History buspirone 5 mg tablet 5 mg PO BID PRN Anxiety 06/13/22 Unknown History loratadine 10 mg capsule 10 mg PO DAILY allergy 06/13/22 Unknown History albuterol sulfate 5 mg/mL(0.5 %) 2.5 mg (0.5 mL) inhalation Q6H PRN 06/17/24 Unknown Rx solution for nebulization shortness of breath or wheezing #15 mL budesonide 0.5 mg/2 mL suspension 0.5 mg (2 mL) inhalation Q12H.RT 06/17/24 Unknown Rx for nebulization lungs #0 mL ibuprofen 600 mg tablet 600 mg PO Q6H PRN PRN Pain Score 06/17/24 Unknown Rx 1-10 #0 tabs melatonin 3 mg tablet 3 mg PO QHS PRN PRN Insomnia #0 06/17/24 Unknown Rx tabs tolterodine 2 mg capsule,extended 2 mg PO DAILY overactive bladder 06/17/24 Unknown Rx release 24 hr #0 caps Allergy/AdvReac Type Severity Reaction Status Date / Time cat dander Allergy Shortness Verified 06/20/22 08:41 of breath dog dander Allergy Shortness Verified 06/20/22 08:41 of breath Penicillins (PCN) Allergy Unknown Verified 06/20/22 08:41 trifluoperazine (From Allergy Unknown Verified 06/20/22 08:41 Stelazine) Surgical History Hx of oral surgery Hx of colonoscopy Hx of wisdom tooth extraction Social History (Updated 06/17/24 @ 19:[address] Dennis Javier MD) household members: family and other details: Sister, they own house together. Smoking Status: Never smoker alcohol intake: never substance use type: does not use ROS Constitutional Constitutional: Denies chills, fever(s) or weight gain ENT HEENT: Denies headache(s), nasal congestion or nasal discharge Cardiovascular Cardiovascular: Denies chest pain or palpitations Respiratory/Chest Respiratory/Chest: Denies cough, excessive phlegm production or shortness of breath with exertion Gastrointestinal Gastrointestinal: Denies abdominal pain, nausea or vomiting Genitourinary Genitourinary: Denies dysuria Musculoskeletal Musculoskeletal: Denies joint pain or joint swelling Integumentary Integumentary: Denies rash or wounds Neurologic Neurologic: Denies focal weakness, numbness or tingling Psychiatric Psychiatric: Denies anxiety, auditory hallucinations, depression, homicidal ideation or suicidal ideation Vital Signs Vital Signs Vital Signs: 06/17/24 18:03 Temperature 96.7 F L Temperature Source Temporal Pulse Rate 88 Respiratory Rate 16 Blood Pressure 110/70 Blood Pressure Mean 83 Blood Pressure Source Monitor Pulse Ox 95 Oxygen Delivery Method Room Air Weight Weight: 59.874 kg Body Mass Index (BMI) 21.9 Physical Exam Const alert General Appearance: cooperative HEENT normocephalic Eyes PERRL and EOMs intact bilaterally Neck supple, no JVD and no carotid bruits Resp normal respiratory effort, normal air movement and clear to auscultation bilaterally Cardio regular rate and regular rhythm GI normal to inspection, nondistended, normoactive bowel sounds, non-tender and non-distended Extremity normal capillary refill General Extremity: Negative for edema Skin no rashes or lesions noted General Skin Exam: no breakdown Psych affect normal Appearance: appropriate Assessment & Plan Assessment/Plan (1) Debility: (2) Multiple falls: (3) Acute hyponatremia: (4) Acute hyperkalemia: (5) Low back pain: (6) Sciatica: (7) Schizophrenia: (8) Extrapyramidal symptom: (9) Depression: (10) Overactive bladder: (11) Allergic rhinitis: (12) Asthma: PLAN: Plan 53 year old female with below past medical history hospitalized for weakness, multiple falls, hyponatremia, hyperkalemia, admitted to TCU with debility, here for rehabilitation, strengthening, prior to discharge home with sister. Debility - PT/OT. Pain - Motrin 600mg q6 prn. Bowel - senna/colace 1 tablet bid prn, Magnesium citrate 300ml po daily prn. Adult immunization - Administer pneumonia vaccine, covid vaccine, flu vaccine as appropriate. DVT prophylaxis - Lovenox 40mg sc daily. Asthma - Budesonide 0.5mg inhaled q12, Albuterol 2.5mg neb q6 prn. Extrapyramidal symptoms - Cogentin 0.5mg bid, 1mg qhs. Anxiety - Buspar 5mg bid prn. Vitamin D deficiency - D 125mcg daily. Depression - Sertraline 100mg bid, Depkaote 500mg tid, stable chronic custodial use under psychiatric care, GDR not recommended. Schizophrenia - Haldol 5mg tid, stable chronic custodial use under psychiatric care, GDR not recommended. Allergic rhinitis - Loratadine 10mg daily. Insomnia - Melatonin 3mg qhs prn. Overactive bladder - Tolterodine 2mg daily.
[2024-06-17] MEDS: Budesonide Respules 0.5 MG/2 ML AMPUL.NEB. INHALATION (19:41)
[2024-06-17 20:00] VITALS: RESP 14; O2SAT 93
[2024-06-17 20:04] VITALS: PULSE 76; RESP 16
[2024-06-17] MEDS: Ibuprofen 600 MG Tablet PO (21:12)
[2024-06-17] MEDS: Senna/Docusate Sodium 1 Tablet PO (21:13)
[2024-06-17] MEDS: Sertraline 100 MG Tablet PO (21:13)
[2024-06-17] MEDS: Haloperidol 5 MG Tablet PO (21:13)
[2024-06-17] MEDS: Divalproex Sodium 250 MG Tablet 500 MG PO (21:13)
[2024-06-17] MEDS: Benztropine Mesylate 0.5 MG TABLET 1 MG PO (21:13)
[2024-06-18 04:15] LABS: Absolute Lymphocyte Count 1.63 X10^3/uL (0.83-4.51); Absolute Neutrophil Count 4.2 X10^3/uL (2.0-7.7); Basophil# 0.03 X10^3/uL; Basophil% 0.4 % (0-1); Eosinophils% 1.5 % (0-5); Hematocrit 34.4 % (37-47); Hemoglobin 11.8 g/dL (12.0-15.0); Lymphocyte # 1.63 X10^3/ul (0.83-4.51); Lymphocyte % 23.7 % (19-41); Mean Corp Hgb Conc 34.3 g/dL (32-36); Mean Corpuscular Hgb 31.1 pg (27.0-32.0); Mean Corpuscular Volume 90.8 fL (81-99); Mean Platelet Vol. 8.8 fl (6.2-12.0); Monocyte# 0.89 X10^3/uL; Monocyte% 12.9 % (0-10); NRBC Flagged by Analyzer 0 % (0-5); Neutrophil # 4.16 X10^3/uL (2.7-7.7); Neutrophil % 60.5 % (47-70); Platelet Count 151 K/mm3 (150-450); RBC Distribution Width CV 13.8 % (11.6-14.6); RBC Distribution Width SD 45.7 fl (35.1-43.9); Red Blood Count 3.79 M/mm3 (4.2-5.4); White Blood Count 6.9 K/mm3 (4.4-11.0)
[2024-06-18 04:38] LABS: Anion Gap 7 (5-15); BUN 20 mg/dL (7-18); BUN/Creat Ratio 29.2 RATIO (10-20); Calcium,Total 8.9 mg/dL (8.5-10.1); Chloride 97 mmol/L (98-107); Creatinine, Serum 0.69 mg/dL (0.55-1.02); EST Glomerular Filtration Rate 95 mL/min (>60); Est Glom Filt Rate - Afr Amer 115 mL/min (>60); Estimated Creatinine Clearance 85.82 ml/min; Glucose 90 mg/dL (74-106); Potassium 4.5 mmol/L (3.5-5.1); Sodium Level 130 mmol/L (136-145)
[2024-06-18] MEDS: Divalproex Sodium 250 MG Tablet 500 MG PO ×3 (05:45→21:35)
[2024-06-18] MEDS: Enoxaparin 40 MG/0.4 ML Syringe SC (05:45)
[2024-06-18] MEDS: Haloperidol 5 MG Tablet PO ×3 (05:45→21:36)
[2024-06-18] MEDS: Benztropine Mesylate 0.5 MG TABLET PO ×2 (05:45→14:25)
[2024-06-18 05:56] VITALS: RESP 15; O2SAT 92
[2024-06-18] MEDS: Tolterodine Tartrate 2 MG CAP.SA PO (09:23)
[2024-06-18] MEDS: Loratadine 10 MG Tablet PO (09:23)
[2024-06-18] MEDS: Cholecalciferol (Vit D3) 125 MCG CAPSULE (5,000 UNITS) PO (09:25)
[2024-06-18] MEDS: Sertraline 100 MG Tablet PO ×2 (09:25→21:36)
[2024-06-18] MEDS: Tuberculin,Purif.prot.deriv. 50 TU/ML Vial 0.1 ML ID (10:01)
[2024-06-18 12:24] VITALS: BP 106/58; PULSE 95; RESP 16; TEMP 36.1; O2SAT 99
[2024-06-18 13:50] VITALS: PULSE 74; RESP 16
[2024-06-18] MEDS: Albuterol 2.5 MG/3 ML VIAL.NEB. INHALATION (13:50)
[2024-06-18] MEDS: Ibuprofen 600 MG Tablet PO (16:41)
[2024-06-18 19:15] VITALS: PULSE 100; RESP 20; O2SAT 99
[2024-06-18] MEDS: Budesonide Respules 0.5 MG/2 ML AMPUL.NEB. INHALATION (19:15)
[2024-06-18] MEDS: Benztropine Mesylate 0.5 MG TABLET 1 MG PO (21:35)
[2024-06-18] MEDS: Baclofen 10 MG Tablet PO (21:40)
[2024-06-19] MEDS: Haloperidol 5 MG Tablet PO ×3 (05:43→21:13)
[2024-06-19] MEDS: Divalproex Sodium 250 MG Tablet 500 MG PO ×3 (05:43→21:13)
[2024-06-19] MEDS: Benztropine Mesylate 0.5 MG TABLET PO ×2 (05:43→14:22)
[2024-06-19] MEDS: Enoxaparin 40 MG/0.4 ML Syringe SC (05:46)
[2024-06-19] MEDS: Tolterodine Tartrate 2 MG CAP.SA PO (09:47)
[2024-06-19] MEDS: Sertraline 100 MG Tablet PO ×2 (09:47→21:13)
[2024-06-19] MEDS: Cholecalciferol (Vit D3) 125 MCG CAPSULE (5,000 UNITS) PO (09:47)
[2024-06-19] MEDS: Loratadine 10 MG Tablet PO (09:47)
[2024-06-19] MEDS: Baclofen 10 MG Tablet PO ×2 (09:53→21:13)
[2024-06-19 11:10] VITALS: PULSE 99; RESP 18
[2024-06-19] MEDS: Budesonide Respules 0.5 MG/2 ML AMPUL.NEB. INHALATION (11:10)
[2024-06-19 11:39] VITALS: BP 111/68; PULSE 112; RESP 18; TEMP 35.9; O2SAT 98
[2024-06-19] MEDS: Menthol/Lanolin/Calamine/Znox 113 GM Tube 1 APPLIC TOPICAL ×2 (14:21→21:13)
[2024-06-19 16:46] VITALS: PULSE 112; RESP 16; O2SAT 98
[2024-06-19] MEDS: Benztropine Mesylate 0.5 MG TABLET 1 MG PO (21:13)
[2024-06-20] MEDS: Benztropine Mesylate 0.5 MG TABLET PO ×2 (06:29→13:49)
[2024-06-20] MEDS: Divalproex Sodium 250 MG Tablet 500 MG PO ×3 (06:30→20:37)
[2024-06-20] MEDS: Haloperidol 5 MG Tablet PO ×3 (06:30→20:37)
[2024-06-20] MEDS: Enoxaparin 40 MG/0.4 ML Syringe SC (06:30)
[2024-06-20] MEDS: Baclofen 10 MG Tablet PO (06:30)
[2024-06-20 06:45] VITALS: PULSE 67; O2SAT 100
[2024-06-20] MEDS: Cholecalciferol (Vit D3) 125 MCG CAPSULE (5,000 UNITS) PO (07:53)
[2024-06-20] MEDS: Tolterodine Tartrate 2 MG CAP.SA PO (07:53)
[2024-06-20] MEDS: Loratadine 10 MG Tablet PO (07:53)
[2024-06-20] MEDS: Sertraline 100 MG Tablet PO ×2 (07:53→20:38)
[2024-06-20] MEDS: Menthol/Lanolin/Calamine/Znox 113 GM Tube 1 APPLIC TOPICAL ×2 (07:54→20:39)
[2024-06-20 14:05] VITALS: BP 106/69; PULSE 102; RESP 16; TEMP 36.6; O2SAT 98
[2024-06-20] MEDS: Benztropine Mesylate 0.5 MG TABLET 1 MG PO (20:38)
[2024-06-20 20:57] VITALS: PULSE 102; RESP 16; O2SAT 99
[2024-06-20] MEDS: Budesonide Respules 0.5 MG/2 ML AMPUL.NEB. INHALATION (20:57)
[2024-06-21] MEDS: Divalproex Sodium 250 MG Tablet 500 MG PO ×3 (06:48→20:58)
[2024-06-21] MEDS: Haloperidol 5 MG Tablet PO ×3 (06:49→20:58)
[2024-06-21] MEDS: Enoxaparin 40 MG/0.4 ML Syringe SC (06:49)
[2024-06-21] MEDS: Baclofen 10 MG Tablet PO (06:49)
[2024-06-21] MEDS: Benztropine Mesylate 0.5 MG TABLET PO ×2 (06:50→14:15)
[2024-06-21 07:06] VITALS: PULSE 83; RESP 16
[2024-06-21] MEDS: Budesonide Respules 0.5 MG/2 ML AMPUL.NEB. INHALATION (07:06)
[2024-06-21 08:05] VITALS: BP 130/89; PULSE 66; RESP 15; TEMP 36.1; O2SAT 93
[2024-06-21] MEDS: Tolterodine Tartrate 2 MG CAP.SA PO (08:07)
[2024-06-21] MEDS: Sertraline 100 MG Tablet PO ×2 (08:07→20:58)
[2024-06-21] MEDS: Loratadine 10 MG Tablet PO (08:07)
[2024-06-21] MEDS: Cholecalciferol (Vit D3) 125 MCG CAPSULE (5,000 UNITS) PO (08:07)
[2024-06-21] MEDS: Menthol/Lanolin/Calamine/Znox 113 GM Tube 1 APPLIC TOPICAL ×2 (08:07→21:00)
[2024-06-21 08:09] VITALS: RESP 15; O2SAT 95
--- NOTE | 2024-06-21 10:34 | PHA.CONS_ITS ---
Documented by User: Henri Pimentel 06/21/24 11:14 TCU RX Drug Regimen Review Subjective/Objective Subjective/Objective: Subjective: TCU admission note. 53 year old female with below past medical history hospitalized for weakness, multiple falls, hyponatremia, hyperkalemia, admitted to TCU with debility, here for rehabilitation, strengthening, prior to discharge home with sister. Objective: Allergies cat dander Allergy (Verified 06/20/22 08:41) Shortness of breath dog dander Allergy (Verified 06/20/22 08:41) Shortness of breath Penicillins (PCN) Allergy (Verified 06/20/22 08:41) Unknown trifluoperazine (From Stelazine) Allergy (Verified 06/20/22 08:41) Unknown Current Medications Generic Name Dose Route Start Last Admin Trade Name Freq PRN Reason Stop Dose Admin Albuterol Sulfate 2.5 mg 06/17/24 18:25 06/18/24 13:50 Albuterol 2.5 Mg/3 Ml Vial.Neb. INHALATION 2.5 mg Q6H PRN Administration shortness of breath or wheezing Baclofen 10 mg 06/18/24 18:52 06/21/24 06:49 Baclofen 10 Mg Tablet PO 10 mg TID PRN Administration MUSCLE SPASM Benztropine Mesylate 0.5 mg 06/18/24 06:00 06/21/24 06:50 Benztropine Mesylate 0.5 Mg Tablet PO 0.5 mg BID@0600,1400 ROMAN Administration Benztropine Mesylate 1 mg 06/17/24 22:00 06/20/24 20:38 Benztropine Mesylate 0.5 Mg Tablet PO 1 mg QHS ROMAN Administration Budesonide 0.5 mg 06/17/24 18:15 06/21/24 07:06 Budesonide Respules 0.5 Mg/2 Ml Ampul.Neb. INHALATION 0.5 mg Q12H.RT ROMAN Administration Buspirone HCl 5 mg 06/17/24 18:06 Buspirone 5 Mg Tablet PO BID PRN Anxiety Calamine/Phenol 1 applic 06/19/24 10:45 06/21/24 08:07 Menthol/Lanolin/Calamine/Znox 113 Gm Tube TOPICAL 1 applic BID ROMAN Administration Protocol Cholecalciferol 125 mcg 06/18/24 10:00 06/21/24 08:07 Cholecalciferol (Vit D3) 125 Mcg Capsule (5,000 Units) PO 125 mcg DAILY ROMAN Administration Divalproex Sodium 500 mg 06/17/24 22:00 06/21/24 06:48 Divalproex Sodium 250 Mg Tablet PO 500 mg TID ROMAN Administration Enoxaparin Sodium 40 mg 06/18/24 06:00 06/21/24 06:49 Enoxaparin 40 Mg/0.4 Ml Syringe SC 40 mg DAILY@0600 ROMAN Administration Haloperidol 5 mg 06/17/24 22:00 06/21/24 06:49 Haloperidol 5 Mg Tablet PO 5 mg TID ROMAN Administration Protocol Ibuprofen 600 mg 06/17/24 18:06 06/18/24 16:41 Ibuprofen 600 Mg Tablet PO 600 mg Q6H PRN PRN Administration Pain Score 1-10 Loratadine 10 mg 06/18/24 10:00 06/21/24 08:07 Loratadine 10 Mg Tablet PO 10 mg DAILY ROMAN Administration Magnesium Citrate 300 ml 06/17/24 19:23 Magnesium Citrate 300 Ml PO DAILY PRN Constipation Melatonin 3 mg 06/17/24 18:06 Melatonin 3 Mg Tablet PO QHS PRN PRN Insomnia Senna/Docusate Sodium 1 tablet 06/17/24 19:19 06/17/24 21:13 Senna/Docusate Sodium 1 Tablet PO 1 tablet BID PRN Administration Constipation Sertraline HCl 100 mg 06/17/24 22:00 06/21/24 08:07 Sertraline 100 Mg Tablet PO 100 mg BID ROMAN Administration Sodium Chloride 10 - 40 ml 06/17/24 18:10 0.9% Saline Lock 10 Ml Syringe IV UD PRN SALINE FLUSH Tolterodine Tartrate 2 mg 06/18/24 10:00 06/21/24 08:07 Tolterodine Tartrate 2 Mg Cap.Sa PO 2 mg DAILY ROMAN Administration Tuberculin PPD 0.1 ml 06/25/24 10:00 Tuberculin,Purif.Prot.Deriv. 50 Tu/Ml Vial ID 06/25/24 10:01 X1 ONE Problem List Asthma (Acute) Allergic rhinitis (Acute) Overactive bladder (Acute) Depression (Acute) Extrapyramidal symptom (Acute) Schizophrenia (Acute) Sciatica (Acute) Low back pain (Acute) Debility (Acute) Acute hyperkalemia (Acute) Acute hyponatremia (Acute) Multiple falls (Acute) Vital Signs Temp Pulse Resp BP Pulse Ox O2 Del Method 97 F L 66 15 130/89 H 95 Room Air 06/21/24 08:05 06/21/24 08:05 06/21/24 08:09 06/21/24 08:05 06/21/24 08:09 06/21/24 08:09 Oxygen Delivery Method Room Air Weight: 59.874 kg Body Mass Index (BMI) 21.9 Sodium 130 mmol/L (136-145) L 06/18/24 04:00 Potassium 4.5 mmol/L (3.5-5.1) 06/18/24 04:00 Chloride 97 mmol/L (98-107) L 06/18/24 04:00 Carbon Dioxide 26.0 mmol/L (21.0-32.0) 06/18/24 04:00 Anion Gap 7 (5-15) 06/18/24 04:00 BUN 20 mg/dL (7-18) H 06/18/24 04:00 Creatinine 0.69 mg/dL (0.55-1.02) 06/18/24 04:00 Est GFR (MDRD) Af Amer 115 mL/min (>60) 06/18/24 04:00 Est GFR (MDRD) Non-Af 95 mL/min (>60) 06/18/24 04:00 BUN/Creatinine Ratio 29.2 RATIO (10-20) H 06/18/24 04:00 Glucose 90 mg/dL (74-106) 06/18/24 04:00 Assessment/Plan: 1. Pain: ibuprofen 600 mg PO Q6H PRN. The patient has used 2 PRN doses of ibuprofen so far this admission. Please continue to monitor for PRN medication usage, and pain levels. 2. Bowel: senna/docusate 1 tablet PO BID PRN constipation, magnesium citrate 300 mL PO daily PRN constipation. The patient has used 1 dose of PRN senna/docusate and 0 doses of magnesium citrate so far this admission, and the patient's last bowel movement is documented as 06/19/24. Please continue to monitor for PRN medication usage, bowel movements, constipation and diarrhea. 3.DVT prophylaxis: enoxaparin 40 mg SC daily. Please continue to monitor for s/s of a DVT such as pain/erythema/swelling in an extremity, as well as for bl eeding/excessive bruising, renal function (serum creatinine = 0.69 mg/dL with creatinine clearance ~ 86 mL/min on 06/18/24), hemoglobin levels (Hgb = 11.8 g/dL on 06/18/24), and platelet count (Plt = 151 K/mm3 on 06/18/24). 4. Asthma: budesonide 0.5 mg Q12H, albuterol 2.5 mg Q6H PRN shortness of breath. The patient has used 1 PRN dose of PRN albuterol so far this admission. Please continue to monitor for s/s of an asthma exacerbation, shortness of breath, oral thrush, and palpitations. 5. EPS: benztropine 0.5 mg PO BID, benztropine 1 mg PO QHS. Please continue to monitor for extrapyramidal symptoms, for anticholinergic side effects such as constipation, tachycardia, urinary retention, and dry mouth. 6. Overactive bladder:tolterodine 2 mg PO daily. Please continue to monitor for overactive bladder, dry mouth, headache, and constipation. 7. Allergic rhinitis: loratadine 10 mg PO daily. Please continue to monitor for s/s of allergic rhinitis and headaches. 8. Insomnia: melatonin 3 mg PO QHS PRN insomnia. The patient has not required any PRN doses of melatonin so far this admission. Please continue to monitor for insomnia, for PRN medication usage, and for drowsiness with PRN melatonin administration. 9. Vitamin D deficiency: cholecalciferol 125 mcg PO daily. Please continue to monitor for s/s of vitamin D deficiency, and vitamin D levels (vitamin D = 44.5 ng/mL on 04/29/21). 10. Skin irritation: calmoseptine 1 application topically BID. Please continue to monitor for skin irritation. 11. Muscle Spasms: baclofen 10 mg PO TID PRN muscle spasms. The patient has required 5 PRN doses of baclofen so far this admission. Please continue to monitor for muscle spasms, for PRN medication usage, for nausea/vomiting, asthenia, confusion, dizziness, drowsiness, and headaches. Assessment/Plan for indications treated with psychotropic medications: 1. Anxiety: buspirone 5 mg PO BID PRN anxiety. The patient has not required any PRN doses of buspirone so far this admission, and since this is a PRN medication with limited usage GDR not recommended. Please continue to monitor for anxiety, for PRN medication usage, for dizziness, for s/s of serotonin syndrome, headaches, insomnia, and drowsiness. 2. Depression: Sertraline 100 mg PO BID, divalproex 500 mg PO TID. 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 Please continue to monitor for s/s of serotonin syndrome, sodium levels (Na = 130 mmol/L on 06/18/24), for SI, for s/s of depression, for diarrhea, nausea, dry mouth, dizziness, LFTs (AST/ALT = 28/12 U/L on 06/16/24), platelet counts (Plt = 151 K/mm3 on 06/18/24), WBC count (WBC = 6.9 K/mm3 on 06/18/24), ammonia levels (ammonia = 17.0 umol/L on 06/15/24), and alopecia. 3. Schizophrenia: haloperidol 5 mg PO TID. 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 Please continue to monitor for EPS, NMS, abdominal pain, akathisia, drowsiness, headache, hypertonia, tremor, and for s/s of orthostasis. Medical chart and medication regimen reviewed. The following medication irregularities or issues were identified: NA Date Date of Note:: 06/21/24 Documented by User: Dr. Dennis Javier MD 06/21/24 12:07 TCU RX Drug Regimen Review Provider Comments Provider responsibility Provider Comments to Recommendations by Pharmacy: Agree
[2024-06-21] MEDS: Ibuprofen 600 MG Tablet PO (12:02)
[2024-06-21 12:05] VITALS: BMI 28.5
[2024-06-21] MEDS: Benztropine Mesylate 0.5 MG TABLET 1 MG PO (20:58)
[2024-06-22] MEDS: Ibuprofen 600 MG Tablet PO ×2 (00:32→13:48)
[2024-06-22] MEDS: Divalproex Sodium 250 MG Tablet 500 MG PO ×3 (05:42→21:04)
[2024-06-22] MEDS: Benztropine Mesylate 0.5 MG TABLET PO ×2 (05:42→13:49)
[2024-06-22] MEDS: Enoxaparin 40 MG/0.4 ML Syringe SC (05:42)
[2024-06-22] MEDS: Haloperidol 5 MG Tablet PO ×3 (05:43→21:04)
[2024-06-22 08:42] VITALS: BP 117/81; PULSE 93; RESP 16; TEMP 35.8; O2SAT 98
[2024-06-22] MEDS: Baclofen 10 MG Tablet PO ×2 (08:43→21:04)
[2024-06-22] MEDS: Cholecalciferol (Vit D3) 125 MCG CAPSULE (5,000 UNITS) PO (08:43)
[2024-06-22] MEDS: Sertraline 100 MG Tablet PO ×2 (08:43→21:04)
[2024-06-22] MEDS: Tolterodine Tartrate 2 MG CAP.SA PO (08:43)
[2024-06-22] MEDS: Loratadine 10 MG Tablet PO (08:43)
[2024-06-22] MEDS: Menthol/Lanolin/Calamine/Znox 113 GM Tube 1 APPLIC TOPICAL ×2 (08:44→21:05)
[2024-06-22 11:24] VITALS: PULSE 100; RESP 16
[2024-06-22] MEDS: Budesonide Respules 0.5 MG/2 ML AMPUL.NEB. INHALATION (11:24)
--- NOTE | 2024-06-22 13:13 | CASEMGMT ---
Addendum entered by Jennifer Kwan 06/22/24 16:54: [facility]. [facility] is [facility]. W reviewing. Medicaid application submitted, per [facility]. BRIDGETT will continue to follow. Addendum entered by Jennifer Kwan 06/22/24 14:26: Pt/sister provided SNF choices: [facility], [facility] and [facility]. Secure email referral sent to [facility]. Original Note: Social Work IDT met with patient and sister for care plan meeting. Discussed patient's progress in PT/OT/SN. Educated to [facility] insurance with NRD 06/23 and continued stay is not guaranteed with each review. SW discussed DC plans. Pt will need to be mod I and able to climb steps to return home. Sister is adamant about not being able to care for pt at DC. SW educated to other option of SNF and financial liability. Pt is unable to pay OOP but willing to apply for Medicaid. SW educated to referral to [facility]. SW provided printed list of INN SNFs with quality and resource data via [employer] Guide. Pt to notify this worker of choices. SW will continue to follow for DC planning. ARACELY Carrillo
--- NOTE | 2024-06-22 15:18 | CASEMGMT ---
Social Work BRIDGETT met with pt and completed initial assessment. Pt confirms she has completed a HCPOA naming her sister Aiyana and a living will. Pt confirms wishes for full code. SW educated pt on [employer] Medicare benefit and NRD of 06/23 and that continued stay is not guaranteed. Pt lives in a split level home with 6 stairs to landing and then 6 stairs to the main floor. Pt states for the last 6-8 weeks she has been crawling up the stairs on her hands and knees and her sister states pt cannot return home unless she is able to ambulate up the stairs. 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 BRIDGETT will continue to follow for dc planning and support. JANESSA Conley
[2024-06-22] MEDS: Benztropine Mesylate 0.5 MG TABLET 1 MG PO (21:04)
[2024-06-23] MEDS: Baclofen 10 MG Tablet PO (04:09)
[2024-06-23] MEDS: Haloperidol 5 MG Tablet PO ×3 (05:15→21:01)
[2024-06-23] MEDS: Divalproex Sodium 250 MG Tablet 500 MG PO ×3 (05:15→21:01)
[2024-06-23] MEDS: Benztropine Mesylate 0.5 MG TABLET PO ×2 (05:16→13:48)
[2024-06-23] MEDS: Enoxaparin 40 MG/0.4 ML Syringe SC (05:16)
[2024-06-23] MEDS: Ibuprofen 600 MG Tablet PO (06:37)
--- NOTE | 2024-06-23 07:01 | NURSING ---
Patient has been pleasant all night and is very alert to what medications she takes and will ask for a prn for pain when needed. Patient understands fluid restriction and verbalized.
[2024-06-23 07:08] VITALS: PULSE 79; RESP 18; O2SAT 99
[2024-06-23] MEDS: Budesonide Respules 0.5 MG/2 ML AMPUL.NEB. INHALATION (07:08)
[2024-06-23] MEDS: Menthol/Lanolin/Calamine/Znox 113 GM Tube 1 APPLIC TOPICAL ×2 (09:28→21:01)
[2024-06-23] MEDS: Sertraline 100 MG Tablet PO ×2 (09:29→21:01)
[2024-06-23] MEDS: Cholecalciferol (Vit D3) 125 MCG CAPSULE (5,000 UNITS) PO (09:29)
[2024-06-23] MEDS: Loratadine 10 MG Tablet PO (09:29)
[2024-06-23] MEDS: Tolterodine Tartrate 2 MG CAP.SA PO (09:29)
--- NOTE | 2024-06-23 09:47 | NURSING ---
Java Engineer Note; Activity Asset: Licha De La O is independent in her choice of daily activities. She has her phone and tablet she uses for internet, games and talking w/family. She will watch tv, read, welcomes visits from the user support analyst and therapy dog when available. Her sister will bring the dog in for visits as well. Staff will encourage social activities, remind her of weekly activities and respect her right to say no.
[2024-06-23 14:46] VITALS: BP 103/66; PULSE 93; RESP 14; TEMP 36.6; O2SAT 95
--- NOTE | 2024-06-23 16:06 | CASEMGMT ---
Social Work Received Medicaid pending case #[id number] [facility]. Jennifer Kwan MSW FOUNDATION DIRECTOR
[2024-06-23 20:55] VITALS: PULSE 90; RESP 14; O2SAT 99
[2024-06-23] MEDS: Benztropine Mesylate 0.5 MG TABLET 1 MG PO (21:01)
[2024-06-24] MEDS: Ibuprofen 600 MG Tablet PO ×2 (00:03→08:42)
[2024-06-24] MEDS: Divalproex Sodium 250 MG Tablet 500 MG PO ×3 (05:21→20:58)
[2024-06-24] MEDS: Enoxaparin 40 MG/0.4 ML Syringe SC (05:21)
[2024-06-24] MEDS: Haloperidol 5 MG Tablet PO ×3 (05:21→20:59)
[2024-06-24] MEDS: Benztropine Mesylate 0.5 MG TABLET PO ×2 (05:21→15:15)
[2024-06-24 06:31] LABS: Absolute Lymphocyte Count 1.89 X10^3/uL (0.83-4.51); Absolute Neutrophil Count 3.6 X10^3/uL (2.0-7.7); Basophil# 0.03 X10^3/uL; Basophil% 0.5 % (0-1); Eosinophil# 0.23 X10^3/uL; Eosinophils% 3.5 % (0-5); Hematocrit 35.2 % (37-47); Hemoglobin 11.6 g/dL (12.0-15.0); Lymphocyte # 1.89 X10^3/ul (0.83-4.51); Lymphocyte % 28.5 % (19-41); Mean Corpuscular Volume 94.1 fL (81-99); Mean Platelet Vol. 8.7 fl (6.2-12.0); Monocyte# 0.83 X10^3/uL; Monocyte% 12.5 % (0-10); NRBC Flagged by Analyzer 0 % (0-5); Neutrophil # 3.59 X10^3/uL (2.7-7.7); Neutrophil % 54.2 % (47-70); Platelet Count 149 K/mm3 (150-450); RBC Distribution Width CV 13.6 % (11.6-14.6); RBC Distribution Width SD 46.9 fl (35.1-43.9); Red Blood Count 3.74 M/mm3 (4.2-5.4); White Blood Count 6.6 K/mm3 (4.4-11.0)
[2024-06-24] MEDS: Budesonide Respules 0.5 MG/2 ML AMPUL.NEB. INHALATION ×2 (07:19→20:40)
[2024-06-24 07:20] VITALS: PULSE 80; RESP 18; O2SAT 97
[2024-06-24] MEDS: Tolterodine Tartrate 2 MG CAP.SA PO (08:43)
[2024-06-24] MEDS: Loratadine 10 MG Tablet PO (08:43)
[2024-06-24] MEDS: Sertraline 100 MG Tablet PO ×2 (08:43→20:57)
[2024-06-24] MEDS: Cholecalciferol (Vit D3) 125 MCG CAPSULE (5,000 UNITS) PO (08:43)
[2024-06-24] MEDS: Menthol/Lanolin/Calamine/Znox 113 GM Tube 1 APPLIC TOPICAL ×2 (08:46→20:58)
--- NOTE | 2024-06-24 08:46 | NURSING ---
Frame Hand Note; MDS for 06/24/2024 Complete
[2024-06-24 10:15] LABS: Anion Gap 4 (5-15); BUN 26 mg/dL (7-18); BUN/Creat Ratio 34.2 RATIO (10-20); Calcium,Total 9.6 mg/dL (8.5-10.1); Chloride 104 mmol/L (98-107); Creatinine, Serum 0.76 mg/dL (0.55-1.02); EST Glomerular Filtration Rate 85 mL/min (>60); Est Glom Filt Rate - Afr Amer 103 mL/min (>60); Estimated Creatinine Clearance 89.26 ml/min; Glucose 81 mg/dL (74-106); Potassium 4.7 mmol/L (3.5-5.1); Sodium Level 138 mmol/L (136-145)
--- NOTE | 2024-06-24 11:22 | CASEMGMT ---
Social Work SW left with sister to notify on insurance approval with NRD 06/30 and [facility] as accepting facility. Jennifer Kwan, EMERGENCY MANAGEMENT COORDINATOR [employer]
--- NOTE | 2024-06-24 11:23 | CASEMGMT ---
Social Work SW conducted BIMS (09/02) and PHQ-2 () completed for MDS assessment. Jennifer Kwan MSW LOGGING SHOVEL OPERATOR
[2024-06-24 15:20] VITALS: BP 104/71; PULSE 87; RESP 14; TEMP 36.1; O2SAT 96
[2024-06-24 15:50] LABS: Mucous, Urine 0 SEEN /hpf (<or=2+)
[2024-06-24 15:56] LABS: Color, Urine Yellow (Yellow); Glucose, Dipstick Normal (Normal); Ketone-Dipstick 5 mg/dl (Negative); Leukocyte Esterase-Dipstick 500 /ul (Negative); Nitrite-Dipstick Negative (Negative); Occult Blood-Urine 150 /ul (Negative); Protein-Dipstick 100 mg/dl (Negative); Specific Gravity, Urine 1.015 (1.002-1.030); Urine Bilirubin Dipstick Negative (Negative); Urine Clarity Cloudy (Clear); Urine Urobilinogen Normal (Normal)
[2024-06-24 16:08] LABS: Renal Epithelial Cells 10-25 SEEN /hpf (0-5); Transitional Epithelial - Ur 0-5 SEEN /hpf (0-5); White Blood Cells >100 SEEN /hpf (0-5)
[2024-06-24 16:10] LABS: Bacteria 3+ /hpf (None Seen); Red Blood Cells-Urine 5-10 SEEN /hpf (0-5); Squamous Epithelial Cells - UA 0-5 SEEN /hpf (5-10)
--- NOTE | 2024-06-24 17:31 | NURSING ---
Resident having burning with urination, updated Dr. Javier and UA completed. Results read to Dr. Javier, order for Cipro x7 days.
[2024-06-24] MEDS: Ciprofloxacin 500 MG Tablet PO (19:57)
[2024-06-24 20:40] VITALS: PULSE 83; RESP 20; O2SAT 97
[2024-06-24] MEDS: Benztropine Mesylate 0.5 MG TABLET 1 MG PO (20:57)
[2024-06-25] MEDS: Haloperidol 5 MG Tablet PO ×3 (04:33→21:28)
[2024-06-25] MEDS: Benztropine Mesylate 0.5 MG TABLET PO ×2 (04:33→13:42)
[2024-06-25] MEDS: Divalproex Sodium 250 MG Tablet 500 MG PO ×3 (04:34→21:27)
[2024-06-25] MEDS: Enoxaparin 40 MG/0.4 ML Syringe SC (04:34)
[2024-06-25] MEDS: Budesonide Respules 0.5 MG/2 ML AMPUL.NEB. INHALATION ×2 (07:40→20:03)
[2024-06-25 07:45] VITALS: PULSE 82; RESP 20
[2024-06-25] MEDS: Menthol/Lanolin/Calamine/Znox 113 GM Tube 1 APPLIC TOPICAL ×2 (09:02→21:28)
[2024-06-25] MEDS: Tolterodine Tartrate 2 MG CAP.SA PO (09:02)
[2024-06-25] MEDS: Loratadine 10 MG Tablet PO (09:02)
[2024-06-25] MEDS: Cholecalciferol (Vit D3) 125 MCG CAPSULE (5,000 UNITS) PO (09:02)
[2024-06-25] MEDS: Sertraline 100 MG Tablet PO ×2 (09:02→21:27)
[2024-06-25] MEDS: Ciprofloxacin 500 MG Tablet PO ×2 (09:02→21:27)
[2024-06-25] MEDS: Ibuprofen 600 MG Tablet PO (10:03)
[2024-06-25] MEDS: Tuberculin,Purif.prot.deriv. 50 TU/ML Vial 0.1 ML ID (10:03)
[2024-06-25 12:24] VITALS: BP 107/71; PULSE 98; RESP 18; TEMP 36.3; O2SAT 98
[2024-06-25 14:06] VITALS: PULSE 83; RESP 18
[2024-06-25] MEDS: Albuterol 2.5 MG/3 ML VIAL.NEB. INHALATION (14:06)
[2024-06-25 20:03] VITALS: PULSE 97; RESP 20
[2024-06-25] MEDS: Benztropine Mesylate 0.5 MG TABLET 1 MG PO (21:27)
[2024-06-26] MEDS: Baclofen 10 MG Tablet PO ×2 (03:48→10:15)
[2024-06-26] MEDS: Ibuprofen 600 MG Tablet PO (03:48)
[2024-06-26] MEDS: Enoxaparin 40 MG/0.4 ML Syringe SC (05:24)
[2024-06-26] MEDS: Benztropine Mesylate 0.5 MG TABLET PO ×2 (05:24→14:30)
[2024-06-26] MEDS: Divalproex Sodium 250 MG Tablet 500 MG PO ×3 (05:24→21:40)
[2024-06-26] MEDS: Haloperidol 5 MG Tablet PO ×3 (05:25→21:39)
[2024-06-26 07:15] VITALS: PULSE 91; RESP 19
[2024-06-26] MEDS: Budesonide Respules 0.5 MG/2 ML AMPUL.NEB. INHALATION ×2 (07:15→20:00)
[2024-06-26 10:00] VITALS: PULSE 85; RESP 16
[2024-06-26] MEDS: Ciprofloxacin 500 MG Tablet PO ×2 (10:11→21:40)
[2024-06-26] MEDS: Sertraline 100 MG Tablet PO ×2 (10:11→21:41)
[2024-06-26] MEDS: Cholecalciferol (Vit D3) 125 MCG CAPSULE (5,000 UNITS) PO (10:12)
[2024-06-26] MEDS: Loratadine 10 MG Tablet PO (10:12)
[2024-06-26] MEDS: Tolterodine Tartrate 2 MG CAP.SA PO (10:12)
[2024-06-26] MEDS: Menthol/Lanolin/Calamine/Znox 113 GM Tube 1 APPLIC TOPICAL ×2 (10:17→21:40)
[2024-06-26 16:00] VITALS: BP 109/68; PULSE 85; RESP 16; TEMP 36.6; O2SAT 100
[2024-06-26 20:00] VITALS: PULSE 86; RESP 18; O2SAT 91
[2024-06-26] MEDS: Albuterol 2.5 MG/3 ML VIAL.NEB. INHALATION (20:00)
[2024-06-26] MEDS: Benztropine Mesylate 0.5 MG TABLET 1 MG PO (21:40)
[2024-06-27] MEDS: Ibuprofen 600 MG Tablet PO (03:03)
[2024-06-27] MEDS: Divalproex Sodium 250 MG Tablet 500 MG PO ×3 (05:09→20:11)
[2024-06-27] MEDS: Enoxaparin 40 MG/0.4 ML Syringe SC (05:09)
[2024-06-27] MEDS: Benztropine Mesylate 0.5 MG TABLET PO ×2 (05:10→14:02)
[2024-06-27] MEDS: Haloperidol 5 MG Tablet PO ×3 (05:10→20:11)
[2024-06-27 07:18] VITALS: PULSE 81; RESP 16; O2SAT 97
[2024-06-27] MEDS: Albuterol 2.5 MG/3 ML VIAL.NEB. INHALATION (07:18)
[2024-06-27] MEDS: Budesonide Respules 0.5 MG/2 ML AMPUL.NEB. INHALATION ×2 (07:18→19:53)
[2024-06-27] MEDS: Ciprofloxacin 500 MG Tablet PO ×2 (10:16→20:11)
[2024-06-27] MEDS: Loratadine 10 MG Tablet PO (10:16)
[2024-06-27] MEDS: Cholecalciferol (Vit D3) 125 MCG CAPSULE (5,000 UNITS) PO (10:16)
[2024-06-27] MEDS: Sertraline 100 MG Tablet PO ×2 (10:16→20:10)
[2024-06-27] MEDS: Tolterodine Tartrate 2 MG CAP.SA PO (10:17)
[2024-06-27] MEDS: Menthol/Lanolin/Calamine/Znox 113 GM Tube 1 APPLIC TOPICAL ×2 (10:19→20:11)
[2024-06-27 14:31] VITALS: BP 112/71; PULSE 85; RESP 14; TEMP 36.3; O2SAT 99
[2024-06-27] MEDS: Calcium Carbonate 500 MG Tablet PO (18:18)
--- NOTE | 2024-06-27 18:40 | NURSING ---
Tums PRN ordered for indigestion
[2024-06-27 19:53] VITALS: PULSE 74; RESP 18
[2024-06-27] MEDS: Benztropine Mesylate 0.5 MG TABLET 1 MG PO (20:10)
[2024-06-28] MEDS: Ibuprofen 600 MG Tablet PO (00:41)
[2024-06-28] MEDS: Enoxaparin 40 MG/0.4 ML Syringe SC (05:18)
[2024-06-28] MEDS: Haloperidol 5 MG Tablet PO ×3 (05:19→22:37)
[2024-06-28] MEDS: Benztropine Mesylate 0.5 MG TABLET PO ×2 (05:19→14:23)
[2024-06-28] MEDS: Divalproex Sodium 250 MG Tablet 500 MG PO ×3 (05:19→22:37)
[2024-06-28] MEDS: Loratadine 10 MG Tablet PO (09:52)
[2024-06-28] MEDS: Ciprofloxacin 500 MG Tablet PO ×2 (09:52→22:37)
[2024-06-28] MEDS: Cholecalciferol (Vit D3) 125 MCG CAPSULE (5,000 UNITS) PO (09:53)
[2024-06-28] MEDS: Tolterodine Tartrate 2 MG CAP.SA PO (09:53)
[2024-06-28] MEDS: Sertraline 100 MG Tablet PO ×2 (09:53→22:39)
[2024-06-28] MEDS: Menthol/Lanolin/Calamine/Znox 113 GM Tube 1 APPLIC TOPICAL ×2 (09:54→22:38)
[2024-06-28 11:04] VITALS: BP 95/62; PULSE 93; RESP 16; TEMP 36.1; O2SAT 99
[2024-06-28 15:30] VITALS: BMI 28.9
[2024-06-28 19:57] VITALS: PULSE 97; RESP 20; O2SAT 98
[2024-06-28] MEDS: Budesonide Respules 0.5 MG/2 ML AMPUL.NEB. INHALATION (19:57)
[2024-06-28 20:45] VITALS: PULSE 82; O2SAT 95
[2024-06-28] MEDS: Benztropine Mesylate 0.5 MG TABLET 1 MG PO (22:37)
[2024-06-28] MEDS: Baclofen 10 MG Tablet PO (22:39)
[2024-06-29] MEDS: Ibuprofen 600 MG Tablet PO (03:53)
[2024-06-29] MEDS: Haloperidol 5 MG Tablet PO ×3 (06:18→20:55)
[2024-06-29] MEDS: Divalproex Sodium 250 MG Tablet 500 MG PO ×3 (06:18→20:55)
[2024-06-29] MEDS: Enoxaparin 40 MG/0.4 ML Syringe SC (06:18)
[2024-06-29] MEDS: Benztropine Mesylate 0.5 MG TABLET PO ×2 (06:18→13:27)
[2024-06-29 06:54] VITALS: PULSE 80; RESP 16; O2SAT 99
[2024-06-29] MEDS: Budesonide Respules 0.5 MG/2 ML AMPUL.NEB. INHALATION ×2 (06:54→20:10)
[2024-06-29] MEDS: Menthol/Lanolin/Calamine/Znox 113 GM Tube 1 APPLIC TOPICAL ×2 (08:58→23:02)
[2024-06-29] MEDS: Loratadine 10 MG Tablet PO (08:59)
[2024-06-29] MEDS: Ciprofloxacin 500 MG Tablet PO ×2 (08:59→20:55)
[2024-06-29] MEDS: Tolterodine Tartrate 2 MG CAP.SA PO (08:59)
[2024-06-29] MEDS: Cholecalciferol (Vit D3) 125 MCG CAPSULE (5,000 UNITS) PO (08:59)
[2024-06-29] MEDS: Sertraline 100 MG Tablet PO ×2 (08:59→20:54)
[2024-06-29 10:51] VITALS: BP 101/55; PULSE 101; RESP 16; TEMP 36.8; O2SAT 96
[2024-06-29 20:10] VITALS: PULSE 92; RESP 18
[2024-06-29] MEDS: Benztropine Mesylate 0.5 MG TABLET 1 MG PO (20:55)
[2024-06-29] MEDS: Baclofen 10 MG Tablet PO (20:55)
[2024-06-30] MEDS: Haloperidol 5 MG Tablet PO ×3 (05:33→20:19)
[2024-06-30] MEDS: Ibuprofen 600 MG Tablet PO (05:34)
[2024-06-30] MEDS: Baclofen 10 MG Tablet PO (05:34)
[2024-06-30] MEDS: Enoxaparin 40 MG/0.4 ML Syringe SC (05:35)
[2024-06-30] MEDS: Divalproex Sodium 250 MG Tablet 500 MG PO ×3 (05:36→20:21)
[2024-06-30] MEDS: Benztropine Mesylate 0.5 MG TABLET PO ×2 (05:50→13:08)
[2024-06-30 06:44] VITALS: PULSE 87; RESP 18
[2024-06-30] MEDS: Budesonide Respules 0.5 MG/2 ML AMPUL.NEB. INHALATION (06:44)
[2024-06-30 08:25] VITALS: BP 113/72; PULSE 90; RESP 16; TEMP 36.2; O2SAT 99
[2024-06-30] MEDS: Ciprofloxacin 500 MG Tablet PO ×2 (08:27→20:19)
[2024-06-30] MEDS: Tolterodine Tartrate 2 MG CAP.SA PO (08:27)
[2024-06-30] MEDS: Menthol/Lanolin/Calamine/Znox 113 GM Tube 1 APPLIC TOPICAL ×2 (08:27→20:17)
[2024-06-30] MEDS: Loratadine 10 MG Tablet PO (08:27)
[2024-06-30] MEDS: Cholecalciferol (Vit D3) 125 MCG CAPSULE (5,000 UNITS) PO (08:27)
[2024-06-30] MEDS: Sertraline 100 MG Tablet PO ×2 (08:27→20:21)
[2024-06-30] MEDS: FLU VACC 2024-25(6MOS UP)/PF 45 MCG/0.5 ML SYRINGE IM (10:05)
[2024-06-30 10:11] VITALS: PULSE 96; RESP 16; O2SAT 97
--- NOTE | 2024-06-30 12:00 | MDS.RN ---
Information for the MDS was obtained from review of the clinical record, interview of resident, staff, and direct observation of resident?s care.
--- NOTE | 2024-06-30 13:07 | MDS.RN ---
Addendum entered by Jaylyn Nova 06/30/24 13:08: Resident denied use of [place] external catheter during lookback period. Original Note: Pain interview for mds completed.
--- NOTE | 2024-06-30 14:12 | CASEMGMT ---
Social Work Insurance issued LCD 07/02, DC 07/03. SW left VM with sister to confirm DC plan to [facility]. SW updated [facility]. SW spoke with pt to update on DC date, explained appeal rights, and confirmed DC plan to [facility]. Received return phone call from sister whom confirmed DC and can transport pt. PASRR completed. DC paperwork sent to [facility]. Plan: DC 07/03 to [facility], [facility], Medicaid pending, part B therapies ARACELY Carrillo
--- NOTE | 2024-06-30 14:18 | MDS.RN ---
MDS pain interview complete.
[2024-06-30] MEDS: Benztropine Mesylate 0.5 MG TABLET 1 MG PO (20:19)
--- NOTE | 2024-06-30 20:40 | DS.PCM_ITS ---
Providers Date of Admission: 06/17/24 Primary Care Physician: Dr. Gerald Edwards, Reason For Visit: MULTIPLE FALLS/HYPONATREMIA Diagnosis Discharge Diagnosis (1) Debility: Status: Acute Code(s): R53.81 - Other malaise (2) Multiple falls: Status: Inactive Code(s): R29.6 - Repeated falls (3) Acute hyponatremia: Status: Inactive Code(s): E87.1 - Hypo-osmolality and hyponatremia (4) Acute hyperkalemia: Status: Inactive Code(s): E87.5 - Hyperkalemia (5) Low back pain: Status: Acute Code(s): M54.50 - Low back pain, unspecified (6) Sciatica: Status: Acute Code(s): M54.30 - Sciatica, unspecified side (7) Schizophrenia: Status: Acute Code(s): F20.9 - Schizophrenia, unspecified (8) Extrapyramidal symptom: Status: Acute Code(s): R29.818 - Other symptoms and signs involving the nervous system (9) Depression: Status: Acute Code(s): F32.A - Depression, unspecified (10) Overactive bladder: Status: Acute Code(s): N32.81 - Overactive bladder (11) Allergic rhinitis: Status: Acute Code(s): J30.9 - Allergic rhinitis, unspecified (12) Asthma: Status: Acute Code(s): J45.909 - Unspecified asthma, uncomplicated Plan 53 year old female with below past medical history hospitalized for weakness, multiple falls, hyponatremia, hyperkalemia, admitted to TCU with debility, here for rehabilitation, strengthening, prior to discharge home with sister. * Debility - PT/OT. * Pain - Motrin 600mg q6 prn. * Bowel - senna/colace 1 tablet bid prn, Magnesium citrate 300ml po daily prn. * Adult immunization - Administer pneumonia vaccine, covid vaccine, flu vaccine as appropriate. * DVT prophylaxis - Lovenox 40mg sc daily. * Asthma - Budesonide 0.5mg inhaled q12, Albuterol 2.5mg neb q6 prn. * Extrapyramidal symptoms - Cogentin 0.5mg bid, 1mg qhs. * Anxiety - Buspar 5mg bid prn. * Vitamin D deficiency - D 125mcg daily. * Depression - Sertraline 100mg bid, Depkaote 500mg tid, stable chronic fpc use under psychiatric care, GDR not recommended. * Schizophrenia - Haldol 5mg tid, stable chronic long term care phlebotomist use under psychiatric care, GDR not recommended. * Allergic rhinitis - Loratadine 10mg daily. * Insomnia - Melatonin 3mg qhs prn. * Overactive bladder - Tolterodine 2mg daily. Medications at Discharge Home Medications benztropine 1 mg tablet 0.5 mg PO BID schziphrenia 10/11/19 benztropine 1 mg tablet 1 mg PO QHS schizophrenia 10/11/19 cholecalciferol (vitamin D3) 125 mcg (5,000 unit) capsule 5,000 unit PO DAILY supplement 10/11/19 divalproex 500 mg tablet,delayed release 500 mg PO TID schizophrenia 10/11/19 haloperidol 5 mg tablet 5 mg PO TID schizophrenia 10/11/19 sertraline 100 mg tablet 100 mg PO BID depression 10/11/19 buspirone 5 mg tablet 5 mg PO BID PRN Anxiety 06/13/22 loratadine 10 mg capsule 10 mg PO DAILY allergy 06/13/22 albuterol sulfate 5 mg/mL(0.5 %) solution for nebulization 2.5 mg (0.5 mL) inhalation Q6H PRN shortness of breath or wheezing #15 mL 06/17/24 budesonide 0.5 mg/2 mL suspension for nebulization 0.5 mg (2 mL) inhalation Q12H.RT lungs #0 mL 06/17/24 ibuprofen 600 mg tablet 600 mg PO Q6H PRN PRN Pain Score 1-10 #0 tabs 06/17/24 melatonin 3 mg tablet 3 mg PO QHS PRN PRN Insomnia #0 tabs 06/17/24 tolterodine 2 mg capsule,extended release 24 hr 2 mg PO DAILY overactive bladder #0 caps 06/17/24 calcium carbonate 500 mg (2.5 x 200 mg calcium (500 mg)) PO Q4H PRN PRN Indigestion #0 tabs 06/30/24 menthol 0.44 %-zinc oxide 20.6 % topical ointment (Calmoseptine) 1 applic topical BID #0 grams 06/30/24 sennosides 8.6 mg-docusate sodium 50 mg tablet (Stimulant Laxative Plus) 1 tab PO BID PRN Constipation #0 tabs 06/30/24 Hospital Course Operations None Procedures None Summary of Care Provided Minutes Spent on Discharge: 35 Hospital Course: 53 year old female with below past medical history hospitalized for weakness, multiple falls, hyponatremia, hyperkalemia, admitted to TCU with debility, here for rehabilitation, strengthening, prior to discharge home with sister. Discharge to [facility] 07/03/2024, intermediate, Medicaid pending, part B therapies. Physical Exam Const alert General Appearance: cooperative HEENT normocephalic Eyes PERRL and EOMs intact bilaterally Neck supple, no JVD and no carotid bruits Resp normal respiratory effort, normal air movement and clear to auscultation bilaterally Cardio regular rate and regular rhythm GI normal to inspection, nondistended, normoactive bowel sounds, non-tender and non-distended Extremity normal capillary refill General Extremity: Negative for edema Skin no rashes or lesions noted General Skin Exam: no breakdown Psych affect normal Appearance: appropriate Weight / BMI Weight Weight: 78.925 kg Body Mass Index (BMI) 28.9 ABG / Lab / Microbiology Data 06/24/24 05:59 06/24/24 05:59 Microbiology: Microbiology 06/24/24 14:50 Urine, Catheterized Urine Culture - Final Escherichia coli D/C Instructions Discharge Diet: No restrictions Discharge Activity: Return to Normal Activity, May Shower and Use Walker Weight Bearing Status: Weight bearing as tolerated Call your doctor if you observe: Fever of 101 or Higher, Inability to urinate, Inability to have a bowel movement, Shortness of breath, Dizziness, Fainting spells, Swelling in the ankles, Chest pain and Uncontrolled pain Additional Instructions: Discharge to [facility] 07/03/2024, intermediate, Medicaid pending, part B therapies. Meaningful Use Info Meaningful Use Meaningful Use Diagnoses (Choose all that apply): None applicable Ischemic Stroke Statin Dosing Therapy Reference: STATIN DOSE THERAPY REFERENCE: * Patients > 75 years receive moderate or high dose statin therapy. * Patients 75 years or YOUNGER should receive HIGH intensity statin dose unless contraindicated. You will be required to document reason for non-treatment if statin daily dose does not meet guidelines. HIGH DOSE STATIN THERAPY DAILY Atorvastatin > than or = to 40 mg Rosuvastatin > than or = to 20 mg Amlodipine + Atorvastatin > than or = to 2.5/40 mg Ezetimibe + Simvastatin 10/80 mg Simvastatin 80mg Discharge Plan Admission Admit Date/Time: 06/17/24 17:55 Primary Reason for Your Visit: Debility. Attending Provider: Dennis Javier Chi Primary Care Provider: Gerald Edwards Instructions Additional Instructions / Restrictions: Discharge to [facility] 07/03/2024, intermediate, Medicaid pending, part B therapies. Discharge Orders/Prescriptions Prescriptions: New calcium carbonate 200 mg calcium (500 mg) Tablet,Chewable 500 mg PO Q4H PRN PRN (Reason: Indigestion) Qty: 0 0RF menthol-zinc oxide [Calmoseptine] 0.44-20.6 % Ointment 1 applic topical BID Qty: 0 0RF Protocol: *Topical Application Instructions APPLICATION INSTRUCTIONS: Apply to bilateral buttocks, groin sennosides-docusate sodium [Stimulant Laxative Plus] 8.6-50 mg Tablet 1 tab PO BID PRN (Reason: Constipation) Qty: 0 0RF Continued haloperidol 5 mg tablet 5 mg PO TID Patient Comments: Take 1 tablet by mouth three times a day sertraline 100 mg tablet 100 mg PO BID Patient Comments: Take 2 tablet by mouth once a day divalproex 500 mg tablet,delayed release (DR/EC) 500 mg PO TID Patient Comments: Take 1 tablet by mouth three times a day benztropine 1 MG tablet 0.5 mg PO BID benztropine 1 MG tablet 1 mg PO QHS cholecalciferol (vitamin D3) 5,000 UNIT capsule 5,000 unit PO DAILY buspirone 5 mg Tablet 5 mg PO BID PRN (Reason: Anxiety) loratadine 10 mg Capsule 10 mg PO DAILY budesonide 0.5 mg/2 mL Suspension For Nebulization 0.5 mg inhalation Q12H.RT Qty: 0 0RF melatonin 3 mg Tablet 3 mg PO QHS PRN PRN (Reason: Insomnia) Qty: 0 0RF ibuprofen 600 mg Tablet 600 mg PO Q6H PRN PRN (Reason: Pain Score 1-10) Qty: 0 0RF tolterodine 2 mg Capsule,Extended Release 24hr 2 mg PO DAILY Qty: 0 0RF albuterol sulfate 5 mg/mL solution for nebulization 2.5 mg inhalation Q6H PRN (Reason: shortness of breath or wheezing) Qty: 15 0RF Referrals / Follow Up: eGrald Edwards DO [Primary Care Provider] - Disposition Disposition (needs filled in before D/C Order can be placed): NonSkilled NH/Intermed Care
--- NOTE | 2024-06-30 20:45 | TREXTCAR_ITS ---
Diet Diet Order/Speech Therapy: 06/17/24 18:14 Diet: Regular - General Food consistency:: Regular Liquid Consistency:: Regular/Thin Fluid restriction:: 1500 mL Routine Orders/Code Status Code Status: Full Code Wound(s) Left Knee: Wound Type: Abrasion Dressing Change: Adaptic and DSD Right Knee: Wound Type: Scattered abrasions Above right knee: Wound Type: Scrape Nose: Wound Type: Abrasion Dressing Change: Bandaid Left Wrist: Wound Type: Skin Tear Dressing Change: Dry Sterile Dressing Right elbow: Wound Type: Abrasion Therapies Weight Bearing: Weight bearing as tolerated Extremity Affected:: Bilateral Lower Physical Therapy: Eval and Treat Occupational Therapy: Eval and Treat Problem/Diagnosis (1) Debility: Status: Acute Code(s): R53.81 - Other malaise (2) Multiple falls: Status: Inactive Code(s): R29.6 - Repeated falls (3) Acute hyponatremia: Status: Inactive Code(s): E87.1 - Hypo-osmolality and hyponatremia (4) Acute hyperkalemia: Status: Inactive Code(s): E87.5 - Hyperkalemia (5) Low back pain: Status: Acute Code(s): M54.50 - Low back pain, unspecified (6) Sciatica: Status: Acute Code(s): M54.30 - Sciatica, unspecified side (7) Schizophrenia: Status: Acute Code(s): F20.9 - Schizophrenia, unspecified Comment: EFFECTIVE STRESS DISORDER/CONTROLLED WITH MEDS (8) Extrapyramidal symptom: Status: Acute Code(s): R29.818 - Other symptoms and signs involving the nervous system (9) Depression: Status: Acute Code(s): F32.A - Depression, unspecified Comment: ON MED (10) Overactive bladder: Status: Acute Code(s): N32.81 - Overactive bladder (11) Allergic rhinitis: Status: Acute Code(s): J30.9 - Allergic rhinitis, unspecified (12) Asthma: Status: Acute Code(s): J45.909 - Unspecified asthma, uncomplicated Plan 53 year old female with below past medical history hospitalized for weakness, multiple falls, hyponatremia, hyperkalemia, admitted to TCU with debility, here for rehabilitation, strengthening, prior to discharge home with sister. * Debility - PT/OT. * Pain - Motrin 600mg q6 prn. * Bowel - senna/colace 1 tablet bid prn, Magnesium citrate 300ml po daily prn. * Adult immunization - Administer pneumonia vaccine, covid vaccine, flu vaccine as appropriate. * DVT prophylaxis - Lovenox 40mg sc daily. * Asthma - Budesonide 0.5mg inhaled q12, Albuterol 2.5mg neb q6 prn. * Extrapyramidal symptoms - Cogentin 0.5mg bid, 1mg qhs. * Anxiety - Buspar 5mg bid prn. * Vitamin D deficiency - D 125mcg daily. * Depression - Sertraline 100mg bid, Depkaote 500mg tid, stable chronic buttermaker continuous churn use under psychiatric care, GDR not recommended. * Schizophrenia - Haldol 5mg tid, stable chronic buttermaker continuous churn use under psychiatric care, GDR not recommended. * Allergic rhinitis - Loratadine 10mg daily. * Insomnia - Melatonin 3mg qhs prn. * Overactive bladder - Tolterodine 2mg daily. Allergies/Procedures Done in Hospital Allergies cat dander Allergy (Verified 06/20/22 08:41) Shortness of breath dog dander Allergy (Verified 06/20/22 08:41) Shortness of breath Penicillins (PCN) Allergy (Verified 06/20/22 08:41) Unknown trifluoperazine (From Stelazine) Allergy (Verified 06/20/22 08:41) Unknown prednisone Adverse Reaction (Unknown, Verified 06/21/24 12:56) Other samantha symptoms Procedures: None Type of Care/Length of Stay Estimated LOS: Convalescent Care Less Than 30 days Type of Care Needed: Intermediate Rehab Potential: Good Prognosis: Good Additional Orders/Day of Discharge Additional Orders: part B therapies Day of Discharge: 07/03/24 Dietary and Speech Recommendations Dietitian Recommendations/Changes: Continue Regular diet to optimize oral intakes. Rec continue to liberalize or discontinue fluid restriction as medically able Discharge Plan Admission Admit Date/Time: 06/17/24 17:55 Primary Reason for Your Visit: Debility. Attending Provider: Dennis Javier Chi Primary Care Provider: Gerald Edwards Instructions Additional Instructions / Restrictions: Discharge to [facility] 07/03/2024, intermediate, Medicaid pending, part B therapies. Discharge Orders/Prescriptions Prescriptions: New calcium carbonate 200 mg calcium (500 mg) Tablet,Chewable 500 mg PO Q4H PRN PRN (Reason: Indigestion) Qty: 0 0RF menthol-zinc oxide [Calmoseptine] 0.44-20.6 % Ointment 1 applic topical BID Qty: 0 0RF Protocol: *Topical Application Instructions APPLICATION INSTRUCTIONS: Apply to bilateral buttocks, groin sennosides-docusate sodium [Stimulant Laxative Plus] 8.6-50 mg Tablet 1 tab PO BID PRN (Reason: Constipation) Qty: 0 0RF Continued haloperidol 5 mg tablet 5 mg PO TID Patient Comments: Take 1 tablet by mouth three times a day sertraline 100 mg tablet 100 mg PO BID Patient Comments: Take 2 tablet by mouth once a day divalproex 500 mg tablet,delayed release (DR/EC) 500 mg PO TID Patient Comments: Take 1 tablet by mouth three times a day benztropine 1 MG tablet 0.5 mg PO BID benztropine 1 MG tablet 1 mg PO QHS cholecalciferol (vitamin D3) 5,000 UNIT capsule 5,000 unit PO DAILY buspirone 5 mg Tablet 5 mg PO BID PRN (Reason: Anxiety) loratadine 10 mg Capsule 10 mg PO DAILY budesonide 0.5 mg/2 mL Suspension For Nebulization 0.5 mg inhalation Q12H.RT Qty: 0 0RF melatonin 3 mg Tablet 3 mg PO QHS PRN PRN (Reason: Insomnia) Qty: 0 0RF ibuprofen 600 mg Tablet 600 mg PO Q6H PRN PRN (Reason: Pain Score 1-10) Qty: 0 0RF tolterodine 2 mg Capsule,Extended Release 24hr 2 mg PO DAILY Qty: 0 0RF albuterol sulfate 5 mg/mL solution for nebulization 2.5 mg inhalation Q6H PRN (Reason: shortness of breath or wheezing) Qty: 15 0RF Referrals / Follow Up: Gerald Edwards DO [Primary Care Provider] - Disposition Disposition (needs filled in before D/C Order can be placed): NonSkilled NH/Intermed Care
[2024-07-01] MEDS: Enoxaparin 40 MG/0.4 ML Syringe SC (05:48)
[2024-07-01] MEDS: Benztropine Mesylate 0.5 MG TABLET PO ×2 (05:49→13:24)
[2024-07-01] MEDS: Haloperidol 5 MG Tablet PO ×3 (05:49→21:06)
[2024-07-01] MEDS: Menthol/Lanolin/Calamine/Znox 113 GM Tube 1 APPLIC TOPICAL ×2 (05:49→21:07)
[2024-07-01] MEDS: Divalproex Sodium 250 MG Tablet 500 MG PO ×3 (05:49→21:05)
[2024-07-01] MEDS: Baclofen 10 MG Tablet PO (05:52)
[2024-07-01 05:56] VITALS: BP 123/73; PULSE 82; RESP 15; TEMP 36.4; O2SAT 97
[2024-07-01 06:06] LABS: Absolute Lymphocyte Count 1.77 X10^3/uL (0.83-4.51); Absolute Neutrophil Count 2.2 X10^3/uL (2.0-7.7); Basophil# 0.02 X10^3/uL; Basophil% 0.4 % (0-1); Eosinophil# 0.19 X10^3/uL; Hematocrit 34.5 % (37-47); Hemoglobin 11.4 g/dL (12.0-15.0); Lymphocyte # 1.77 X10^3/ul (0.83-4.51); Lymphocyte % 37.6 % (19-41); Mean Corpuscular Hgb 31.6 pg (27.0-32.0); Mean Corpuscular Volume 95.6 fL (81-99); Monocyte% 10.6 % (0-10); NRBC Flagged by Analyzer 0 % (0-5); Neutrophil # 2.18 X10^3/uL (2.7-7.7); Neutrophil % 46.3 % (47-70); Platelet Count 148 K/mm3 (150-450); RBC Distribution Width CV 13.5 % (11.6-14.6); RBC Distribution Width SD 47.9 fl (35.1-43.9); Red Blood Count 3.61 M/mm3 (4.2-5.4); White Blood Count 4.7 K/mm3 (4.4-11.0)
[2024-07-01 06:35] LABS: Anion Gap 5 (5-15); BUN 29 mg/dL (7-18); BUN/Creat Ratio 38.1 RATIO (10-20); Calcium,Total 9.1 mg/dL (8.5-10.1); Chloride 106 mmol/L (98-107); Creatinine, Serum 0.76 mg/dL (0.55-1.02); EST Glomerular Filtration Rate 85 mL/min (>60); Est Glom Filt Rate - Afr Amer 102 mL/min (>60); Glucose 83 mg/dL (74-106); Potassium 4.3 mmol/L (3.5-5.1); Sodium Level 141 mmol/L (136-145)
[2024-07-01] MEDS: Budesonide Respules 0.5 MG/2 ML AMPUL.NEB. INHALATION (07:25)
[2024-07-01 07:46] VITALS: RESP 16
[2024-07-01] MEDS: Cholecalciferol (Vit D3) 125 MCG CAPSULE (5,000 UNITS) PO (08:19)
[2024-07-01] MEDS: Loratadine 10 MG Tablet PO (08:19)
[2024-07-01] MEDS: Ciprofloxacin 500 MG Tablet PO (08:19)
[2024-07-01] MEDS: Tolterodine Tartrate 2 MG CAP.SA PO (08:19)
[2024-07-01] MEDS: Sertraline 100 MG Tablet PO ×2 (08:20→21:05)
[2024-07-01] MEDS: Ibuprofen 600 MG Tablet PO (13:39)
[2024-07-01] MEDS: Benztropine Mesylate 0.5 MG TABLET 1 MG PO (21:06)
[2024-07-02] MEDS: Haloperidol 5 MG Tablet PO ×3 (06:15→20:44)
[2024-07-02] MEDS: Benztropine Mesylate 0.5 MG TABLET PO ×2 (06:15→13:09)
[2024-07-02] MEDS: Baclofen 10 MG Tablet PO ×2 (06:16→20:49)
[2024-07-02] MEDS: Enoxaparin 40 MG/0.4 ML Syringe SC (06:16)
[2024-07-02] MEDS: Divalproex Sodium 250 MG Tablet 500 MG PO ×3 (06:16→20:44)
[2024-07-02 07:10] VITALS: PULSE 88; RESP 16; O2SAT 98
[2024-07-02] MEDS: Budesonide Respules 0.5 MG/2 ML AMPUL.NEB. INHALATION ×2 (07:10→20:11)
[2024-07-02] MEDS: Menthol/Lanolin/Calamine/Znox 113 GM Tube 1 APPLIC TOPICAL ×2 (08:52→20:45)
[2024-07-02] MEDS: Loratadine 10 MG Tablet PO (08:52)
[2024-07-02] MEDS: Cholecalciferol (Vit D3) 125 MCG CAPSULE (5,000 UNITS) PO (08:52)
[2024-07-02] MEDS: Sertraline 100 MG Tablet PO ×2 (08:52→20:44)
[2024-07-02] MEDS: Tolterodine Tartrate 2 MG CAP.SA PO (08:52)
[2024-07-02 11:33] VITALS: BP 105/72; PULSE 89; RESP 16; TEMP 36.3; O2SAT 96
[2024-07-02 20:11] VITALS: PULSE 97; RESP 18; O2SAT 99
[2024-07-02] MEDS: Benztropine Mesylate 0.5 MG TABLET 1 MG PO (20:45)
[2024-07-03] MEDS: Baclofen 10 MG Tablet PO (06:00)
[2024-07-03] MEDS: Benztropine Mesylate 0.5 MG TABLET PO (06:00)
[2024-07-03] MEDS: Haloperidol 5 MG Tablet PO (06:01)
[2024-07-03] MEDS: Divalproex Sodium 250 MG Tablet 500 MG PO (06:01)
[2024-07-03] MEDS: Enoxaparin 40 MG/0.4 ML Syringe SC (06:03)
[2024-07-03] MEDS: Tolterodine Tartrate 2 MG CAP.SA PO (10:18)
[2024-07-03] MEDS: Loratadine 10 MG Tablet PO (10:18)
[2024-07-03] MEDS: Sertraline 100 MG Tablet PO (10:19)
[2024-07-03] MEDS: Cholecalciferol (Vit D3) 125 MCG CAPSULE (5,000 UNITS) PO (10:19)
[2024-07-03] MEDS: Menthol/Lanolin/Calamine/Znox 113 GM Tube 1 APPLIC TOPICAL (10:27)
== END 2024-07-03 13:05 | disposition intermediate care facility (04) | DRG 644 ==
PROVIDERS: Admitting Provider Family Medicine Geriatric Medicine; PCP Student in an Organized Health Care Education/Training Program; Referring Provider Family Medicine Geriatric Medicine; Visit Provider Family Medicine Geriatric Medicine
DX: E22.2 Syndrome of inappropriate secretion of antidiuretic hormone (principal); N39.0 Urinary tract infection, site not specified; E55.9 Vitamin D deficiency, unspecified; F20.9 Schizophrenia, unspecified; F32.A Depression, unspecified; J45.909 Unspecified asthma, uncomplicated; E87.5 Hyperkalemia; F41.9 Anxiety disorder, unspecified; W19.XXXD Unspecified fall, subsequent encounter; M54.40 Lumbago with sciatica, unspecified side; G47.00 Insomnia, unspecified; Z79.51 Long term (current) use of inhaled steroids; N32.81 Overactive bladder; Z79.899 Other long term (current) drug therapy; R29.6 Repeated falls; S01.21XD Laceration without foreign body of nose, subsequent encounter; S80.12XD Contusion of left lower leg, subsequent encounter; Z23 Encounter for immunization
CPT/HCPCS: 36415; 80048; 81001; 85025; 87077; 87086; 87088; 87186; 90656; 92507; 92523; 94640; 97110; 97116; 97162; 97166; 97530; 97533; 97535; 97802

== ENCOUNTER 2024-08-03 19:39 | Emergency (ER) | payer MEDICARE, SELFPAY ==
[2024-08-03 19:40] VITALS: BP 137/88; PULSE 78; RESP 15; TEMP 36.7; O2SAT 100; BMI 30.6
--- NOTE | 2024-08-03 20:08 | EX.ED.GENINJ ---
HPI History of Present Illness Chief Complaint: Head Injury Narrative Narrative: Chief complaint and HPI: Mechanical fall. 53-year-old female with history of depression, schizophrenia, chronic low back pain due to sciatica presents for evaluation of head injury after a mechanical fall. Patient states her sciatica has been acting up. She states that she has had no ibuprofen at home and therefore has not taken it for the past couple days. She states she was getting up from a rolling computer chair when she tripped and fell on the ground. She states she hit the back of her head. Denies LOC. Was able to ambulate after the incident. Denies any neck pain or headache. Denies pain to any of her extremities or abdomen. She is not on blood thinners. States it was purely a mechanical fall. Denies any fever, chills, lightheadedness, dizziness, shortness of breath, chest pain, abdominal pain, nausea, vomiting, dysuria, weakness, numbness or tingling. Review of systems: See HPI Medications: As listed on the chart Allergies: As listed on the chart PFSH: Per chart Vital signs: As listed on the chart. Reviewed. Physical exam: Gen: A&O x3, NAD Head: Normocephalic, small scalp hematoma on the right, no Lombardi sign Eyes: No sclera icterus, conjunctiva clear, PERRL, EOMI, no raccoon eye ENT: TMs clear BL, moist mucous membranes, no swelling/lacerations/blood in the mouth or the nares, No nasal septal hematoma, no facial tenderness Neck: Trachea midline, No JVD, Nontender, no midline bony step-off, full range of motion CV: RRR, no murmurs, no chest wall TTP Resp: Lungs CTA BL, no w/r/c GI: Abd soft, non-distended, non-tender, no r/r/g Musc: Full ROM, no deformity, no spinal TTP, no tonny step-offs Skin: Warm, dry, intact Neuro: Alert, oriented, grossly intact, sensation intact, GCS 15 Psych: Cooperative, appropriate mood and affect [facility] Medical History (Updated 07/11/24 @ 00:02 by Background Daemon) Acute hyperkalemia Acute hyponatremia Elevated blood-pressure reading without diagnosis of hypertension Asymptomatic bacteriuria Abrasions of multiple sites Contusion of leg, left, multiple sites Laceration of nose Unsteady gait Multiple falls Post-menopausal Wears glasses Schizophrenia Depression Anxiety Arthritis Bladder disease Back pain Heartburn Non-smoker Hx of allergy Hx of sepsis History of echocardiogram Home Medications ?Medication ?Instructions ?Recorded ?Last Taken ?Type benztropine 1 mg tablet 0.5 mg PO BID schziphrenia 10/11/19 10/11/19 History benztropine 1 mg tablet 1 mg PO QHS schizophrenia 10/11/19 06/20/22 07:00 History cholecalciferol (vitamin D3) 125 5,000 unit PO DAILY supplement 10/11/19 10/11/19 History mcg (5,000 unit) capsule divalproex 500 mg tablet,delayed 500 mg PO TID schizophrenia 10/11/19 06/20/22 07:00 History release haloperidol 5 mg tablet 5 mg PO TID schizophrenia 10/11/19 06/20/22 07:00 History sertraline 100 mg tablet 100 mg PO BID depression 10/11/19 06/20/22 07:00 History buspirone 5 mg tablet 5 mg PO BID PRN Anxiety 06/13/22 Unknown History loratadine 10 mg capsule 10 mg PO DAILY allergy 06/13/22 Unknown History albuterol sulfate 5 mg/mL(0.5 %) 2.5 mg (0.5 mL) inhalation Q6H PRN 06/17/24 Unknown Rx solution for nebulization shortness of breath or wheezing #15 mL budesonide 0.5 mg/2 mL suspension 0.5 mg (2 mL) inhalation Q12H.RT 06/17/24 Unknown Rx for nebulization lungs #0 mL ibuprofen 600 mg tablet 600 mg PO Q6H PRN PRN Pain Score 06/17/24 Unknown Rx 1-10 #0 tabs melatonin 3 mg tablet 3 mg PO QHS PRN PRN Insomnia #0 06/17/24 Unknown Rx tabs tolterodine 2 mg capsule,extended 2 mg PO DAILY overactive bladder 06/17/24 Unknown Rx release 24 hr #0 caps calcium carbonate 500 mg (2.5 x 200 mg calcium (500 06/30/24 Unknown Rx mg)) PO Q4H PRN PRN Indigestion #0 tabs menthol 0.44 %-zinc oxide 20.6 % 1 applic topical BID #0 grams 06/30/24 Unknown Rx topical ointment (Calmoseptine) sennosides 8.6 mg-docusate sodium 1 tab PO BID PRN Constipation #0 06/30/24 Unknown Rx 50 mg tablet (Stimulant Laxative tabs Plus) gabapentin 100 mg capsule 100 mg PO BID 08/03/24 Unknown History Allergy/AdvReac Type Severity Reaction Status Date / Time cat dander Allergy Shortness Verified 06/20/22 08:41 of breath dog dander Allergy Shortness Verified 06/20/22 08:41 of breath Penicillins (PCN) Allergy Unknown Verified 06/20/22 08:41 trifluoperazine (From Allergy Unknown Verified 06/20/22 08:41 Stelazine) prednisone AdvReac Unknown Other Verified 06/21/24 12:56 Surgical History Hx of oral surgery Hx of colonoscopy Hx of wisdom tooth extraction Social History (Updated 06/17/24 @ 19:[address] Dennis Javier MD) household members: family and other details: Sister, they own house together. Smoking Status: Never smoker alcohol intake: never substance use type: does not use EXAM Physical Exam Const Vital Signs: 08/03/24 19:40 08/03/24 20:04 Temperature 98.1 F Temperature Source Temporal Pulse Rate 78 Respiratory Rate 15 Respiratory Effort Normal Non-Labored Respiratory Depth Normal Respiratory Pattern Normal Blood Pressure 137/88 H Blood Pressure Mean 104 Pulse Ox 100 Oxygen Delivery Method Room Air Room Air MDM MDM MDM Narrative Medical decision making narrative: 53-year-old female presents for evaluation of mechanical fall. Patient did hit her head. No LOC. Not on blood thinners. Patient states she did not want to come to the ER, she states her sister brought her here for evaluation. GCS is 15. Only traumatic injury is a small hematoma on the right scalp. Differential diagnosis includes but is not limited to closed head injury, hematoma, mechanical fall. Per the Elliott CT head rule, patient does not require CT head. Per the [facility] C-spine rule patient does not require CT neck. Patient was educated on no need for imaging at this time. I did explain to the patient that without imaging I cannot fully rule out any traumatic injury although suspicion is very low. Patient states that she does not want any imaging. She states that she did not want to come here. Patient is stable to discharge home. She was educated on signs of concussion. She was told to monitor for these. Follow-up with her PCP. She confirmed understand the plan. Impression: 1. Mechanical fall 2. Scalp hematoma Discharge Plan Triage Chief Complaint: Head Injury ED Provider: Glenn Bosch Dx/Rx/DC Orders Prescriptions: No Action haloperidol 5 mg tablet 5 mg PO TID Patient Comments: Take 1 tablet by mouth three times a day sertraline 100 mg tablet 100 mg PO BID Patient Comments: Take 2 tablet by mouth once a day divalproex 500 mg tablet,delayed release (DR/EC) 500 mg PO TID Patient Comments: Take 1 tablet by mouth three times a day benztropine 1 MG tablet 0.5 mg PO BID benztropine 1 MG tablet 1 mg PO QHS cholecalciferol (vitamin D3) 5,000 UNIT capsule 5,000 unit PO DAILY buspirone 5 mg Tablet 5 mg PO BID PRN (Reason: Anxiety) loratadine 10 mg Capsule 10 mg PO DAILY budesonide 0.5 mg/2 mL Suspension For Nebulization 0.5 mg inhalation Q12H.RT Qty: 0 0RF melatonin 3 mg Tablet 3 mg PO QHS PRN PRN (Reason: Insomnia) Qty: 0 0RF ibuprofen 600 mg Tablet 600 mg PO Q6H PRN PRN (Reason: Pain Score 1-10) Qty: 0 0RF tolterodine 2 mg Capsule,Extended Release 24hr 2 mg PO DAILY Qty: 0 0RF albuterol sulfate 5 mg/mL solution for nebulization 2.5 mg inhalation Q6H PRN (Reason: shortness of breath or wheezing) Qty: 15 0RF calcium carbonate 200 mg calcium (500 mg) Tablet,Chewable 500 mg PO Q4H PRN PRN (Reason: Indigestion) Qty: 0 0RF menthol-zinc oxide [Calmoseptine] 0.44-20.6 % Ointment 1 applic topical BID Qty: 0 0RF Protocol: *Topical Application Instructions APPLICATION INSTRUCTIONS: Apply to bilateral buttocks, groin sennosides-docusate sodium [Stimulant Laxative Plus] 8.6-50 mg Tablet 1 tab PO BID PRN (Reason: Constipation) Qty: 0 0RF gabapentin 100 mg capsule 100 mg PO BID Primary Care Provider: Gerald Edwards Referrals: Gerald Edwards DO [Primary Care Provider] - Print Language: Monegasque
[2024-08-03 20:22] VITALS: BP 137/88; PULSE 70; RESP 15; TEMP 36.7; O2SAT 100
[2024-08-03] MEDS: Ibuprofen 200 MG Tablet 400 MG PO (20:27)
== END 2024-08-03 20:28 | disposition home or self-care (01) ==
PROVIDERS: Emergency Provider Surgery; PCP Student in an Organized Health Care Education/Training Program; Visit Provider Surgery
DX: S06.0X0A Concussion without loss of consciousness, initial encounter (principal); F20.9 Schizophrenia, unspecified; S00.03XA Contusion of scalp, initial encounter; W07.XXXA Fall from chair, initial encounter; F32.A Depression, unspecified; R29.6 Repeated falls
CPT/HCPCS: 99282